=== PATIENT | female | born 1960 | race Caucasian/White ===

== ENCOUNTER 2016-06-26 07:31 | Inpatient (IN) | payer BC ==
[2016-06-26] VITALS (20 sets, daily range): BP systolic 108–164; BP diastolic 53–89
[~2016-06-26] VITALS: Ht 167.6 cm; Wt 54.1 kg
[~2016-06-26 07:31] MED LIST: ACET-654 PO; ALBU17IN INH; ALPR0.25 PO; AMBI10TA PO; AMBI5TAB PO; AMLO5TAB2 PO; BUPR150T5 PO; CALC500C16 PO; CLON0.5T PEG; CLON0.5T PO; CLON1TAB PO; EPOG1000 SUBCON; ESTR1TAB PO; FLUC150T PO; HEPA10004 SC; HEPA100PFS IV; HYDR10TAB PEG; HYDR10TAB PO; HYDR25T PO; IMOD2TAB16 PO; INDE1CAP5 PO; LOPR1TAB7 PO; MARI2.5C PO; MAXA10TA14 PO; METO-207 PEG; METO-207 PO; METR1INJ2 IV; NEPHTAB PO; ONDA1TAB15 PO; PERC5TAB6 PO; PROM-190 PEG; PROM-190 PO; PROM25TA PO; PROM50TA2 PEG; PROP120C PO; PROP12CASA PO; PROT1TAB2 PO; PROTPAK PO; REGL5TAB2 PO; RIZA10TA2 PO; ROCA0.25 PEG; ROCA0.25 PO; SERT-138 PO; SERT-141 PEG; SERT-141 PO; TYLE325T5 PO; VITA-122 PO; XANA0.25 PEG; XANA0.25 PO; ZOFR20TA PEG; ZOFR20TA PO; ZOLO100T PEG; ZOLO50TA PEG; [UNRECOGNIZED DRUG - CODE] IV; [UNRECOGNIZED DRUG - CODE] IV; motrin PO
[2016-06-26] MEDS ORDERED: CALCIUM CHLORIDE 10% 1 GM/10 ML SYR As Ordered ONE ×3 (07:43→08:32)
[2016-06-26] MEDS ORDERED: ONDANSETRON 4MG/2ML VIAL (J2405) As Ordered ONE (07:51)
[2016-06-26] MEDS ORDERED: fentaNYL 100 MCG/2 ML INJECTION (J3010) As Ordered ONE (07:59)
[2016-06-26 08:00] LABS: BASO # 0.1 K/mm3 (0.0-0.2); EOS # 0.3 K/mm3 (0.0-0.50); EOS % 3.2 % (0.0-3.0); LARGE UNSTAINED CELL # 0.1 K/mm3 (0.0-0.4); LARGE UNSTAINED CELL % 1.2 % (0.0-4.0); LYMPH # 1.6 K/mm3 (1.5-4.5); LYMPH % 17.1 % (24.0-44.0); MEAN CORPUSCULAR HEMOGLOBIN 32.9 pg (27.0-33.0); MEAN CORPUSCULAR HGB CONC 30.7 g/dl (32.0-36.5); MEAN CORPUSCULAR VOLUME 106.9 fl (80.0-96.0); MONO # 0.5 K/mm3 (0.0-0.8); MONO % 5.7 % (0.0-5.0); NEUTROPHILS # 6.2 K/mm3 (1.8-7.7); NEUTROPHILS % 71.7 % (36.0-66.0); PLATELET COUNT, AUTOMATED 383 k/mm3 (150-450); WHITE BLOOD COUNT 8.6 K/mm3 (4.0-10.0)
[2016-06-26 08:01] LABS: VENOUS BASE EXCESS -16.4 (-2.0-2.0); VENOUS O2 SATURATION 39.4 % (60.0-80.0); VENOUS PARTIAL PRESSURE CO2 55.8 mmHg (38.0-50.0); VENOUS PARTIAL PRESSURE O2 28.7 mmHg (30.0-50.0); VENOUS STANDARD HCO3 11.3 MEQ/L; VENOUS TOTAL CO2 16.3 MEQ/L (24.0-28.0)
[2016-06-26] MEDS ORDERED: SODIUM BICARBONATE 8.4% INJ 50 ML SYRINGE As Ordered ONE (08:18)
--- NOTE | 2016-06-26 08:20 | REP ---
PORTABLE CHEST X-RAY: Single view. HISTORY: Shortness of breath. COMPARISON STUDY: March 17, 2016. FINDINGS: EKG monitoring equipment is seen. A tunneled catheter is noted in the expected location of the superior vena cava from the left internal jugular vein region. The lungs are somewhat hyperinflated but clear. Heart is not felt to be enlarged. No infiltrate is seen. Pleural angles are sharp. IMPRESSION: Hyperinflation. No infiltrate seen. Central venous line. Signed by Reji Narvaez MD 06/26/2016 10:06 A
[2016-06-26 08:24] LABS: ANION GAP 15 MEQ/L (8-16); BLOOD UREA NITROGEN 61 MG/DL (7-18); CALCIUM LEVEL 10.4 MG/DL (8.5-10.1); CARBON DIOXIDE LEVEL 16 MEQ/L (21-32); CHLORIDE LEVEL 106 MEQ/L (98-107); GLOMERULAR FILTRATION RATE 3.3 (>51); GLUCOSE, FASTING 133 MG/DL (70-105); SODIUM LEVEL 137 MEQ/L (136-145)
[2016-06-26 08:28] LABS: PHOSPHORUS LEVEL 10.3 MG/DL (2.5-4.9); POTASSIUM SERUM 8.6 MEQ/L (3.5-5.1)
[2016-06-26 08:48] LABS: INR 1.07
--- NOTE | 2016-06-26 08:52 | EDDOCDS ---
Nurse's Notes [facility] Name: Jessi Haider Age: 55 yrs Sex: Female : 1960 Arrival Date: 06/26/2016 Time: 07:31 Bed 2 Private MD: Diagnosis: Hyperkalemia Presentation: 06/26 07:32 Presenting complaint: EMS states: dialysis patient missed dialysis on . This [facility] morning not feeling well nausea, diaphoretic hypotensive and bradycardic. heart rate in the 40's 1/2 mg atropine given without any improvement in heart rate , began external pacing rate of 60 capture at 140. dopamine started at 7.5 mcg /kg/min. Adult Sepsis Screening: Patient has new or worsening altered mentation (1 point). Patient's respiratory rate is less than 22. Systolic blood pressure is less than or equal to 100 (1 point). Patient has a qSOFA score of 2. Suicide/Homicide risk assessment- Unable to assess, the patient is critically ill. Status: Patient is not a well service floorperson or dependent. Transition of care: patient was not received from another setting of care. 07:32 Acuity: SELENA Level 2 [facility] 07:32 Acuity: SELENA Level 2 [facility] 07:32 Method Of Arrival: Ambulance [facility] Triage Assessment: 07:50 General: Appears ill, Behavior is appropriate for age. Pain: Location: chest from the [facility] pacing pads Pain currently is 8 out of 10 on a pain scale. HIV screening NA for this visit Offered previously. The patient is triaged at the bedside. See Assessment in Nurses Notes section of ED record. Historical: - Allergies: No known drug Allergies; - Home Meds: 1. vitamin B complex oral tab daily (Last dose: 06/25/2016) 2. acetaminophen 325 mg Oral tab 2 tabs every 4-6 hours as needed (Last dose: Unknown) 3. albuterol sulfate 90 mcg/actuation Inhl aepb 2 puffs every 4 hours as needed (Last dose: Unknown) 4. rizatriptan 10 mg oral tab 1 tab as needed (Last dose: Unknown) 5. metoclopramide HCl 5 mg Oral tab 1 tab 4 times per day as needed (Last dose: Unknown) 6. ondansetron HCl 4 mg Oral tab every 6 hours as needed (Last dose: Unknown) 7. bupropion HCl 150 mg Oral TbER 1 tab 2 times per day (Last dose: 06/25/2016) 8. promethazine 25 mg Oral tab 1 tab every 6 hours as needed (Last dose: Unknown) 9. estradiol 1 mg Oral tab 1 tab once daily (Last dose: 06/25/2016) 10. Sertraline 200 mg daily (Last dose: 06/25/2016) 11. clonazepam 1 mg Oral tab 1 tab four times a day (Last dose: 06/25/2016) 12. propranolol 120 mg Oral Cs24 1 cap nightly (Last dose: 06/25/2016) 13. Protonix 40 mg Oral TbEC 1 tab once daily (Last dose: 06/25/2016) 14. zolpidem 10 mg Oral tab 1 tab nightly (Last dose: 06/25/2016) 15. 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 No barriers to communication noted, The patient speaks fluent Nepali. - Family history: Not pertinent. - : The pt / caregiver states he / she is not on anticoagulants. Home medication list is obtained from the patient. - Exposure Risk Screening:: None identified. Screenin:23 Screening information is obtained from the patient. Fall risk: No risks identified. ml6 Assistance ADL's: requires no assistance with activities of daily living. Abuse/DV Screen: The patient / caregiver reports he/she is: not in a situation that causes fear, pain or injury. Nutritional screening: No deficits noted. Advance Directives: Currently, there is no health care proxy. home support is adequate. Assessment: 07:30 General: Appears ill, Behavior is cooperative, Reports nausea and weakness for 2 days, [facility] missed dialysis on . Pain: Location: chest from being paced Pain currently is 8 out of 10 on a pain scale. Neurological: Level of Consciousness is lethargic. Cardiovascular: Capillary refill is > 3 seconds in bilateral fingers Rhythm is paced at 60 via external pacemaker. Respiratory: Airway is patent Respiratory effort is even, unlabored, Respiratory pattern is regular, symmetrical. GI: Reports nausea. Derm: Skin is dry, Skin is pale, pink, Skin temperature is cool. 07:30 General: Appears ill, uncomfortable, Behavior is anxious, cooperative. Pain: Location: ml6 chest Pain currently is 4 out of 10 on a pain scale. Pain does not radiate. Quality of pain is described as burning. Neurological: No deficits noted. Level of Consciousness is awake, lethargic, Oriented to person, place, time, Business Continuity Planning Director are equal bilaterally. Cardiovascular: Capillary refill < 3 seconds. Cardiovascular: Rhythm is regular. Respiratory: Airway is patent. Respiratory: Airway is patent Respiratory effort is even, unlabored, Respiratory pattern is regular, symmetrical, Breath sounds are clear bilaterally. GI: No deficits noted. 08:22 Reassessment: Patient appears in no apparent distress at this time. Patient denies pain ml6 at this time. Patient states feeling better. Patient states symptoms have improved. General: Appears in no apparent distress, comfortable, Behavior is appropriate for age, cooperative. Pain: Denies pain. Neurological: No deficits noted. Level of Consciousness is awake, alert, Oriented to person, place, time. Cardiovascular: No deficits noted. Capillary refill < 3 seconds is brisk in bilateral fingers. Respiratory: No deficits noted. Airway is patent Respiratory effort is even, unlabored, Respiratory pattern is regular, symmetrical, Breath sounds are clear bilaterally. GI: No deficits noted. Abdomen is flat. Vital Signs: 07:54 BP 90 / ??? RA Supine (man/reg); Pulse 60; Resp 22; Temp 96.4(O); Pulse Ox 100% on kpj Non-rebreather mask; Weight 61.37 kg (M); Height 5 ft. 6 in. (167.64 cm) (R); Pain 8/10; 07:55 BP 122 / 78 Supine (man/reg); Pulse 74; Resp 20; Pulse Ox 100% on Mask: Non-rebreather kpj mask; 08:00 BP 124 / 80 Supine (man/reg); Pulse 71; Resp 20; Pulse Ox 100% on Mask: Non-rebreather kpj mask; 07:54 Body Mass Index 21.84 (61.37 kg, 167.64 cm) [facility] 07:54 paced at 60 external pacemaker. [facility] Vitals: 07:54 Log In Time N/A - ambulance arrival. [facility] ED Course: 07:30 Resting quietly. kpj 07:30 The patient / caregiver is instructed regarding the plan of care and ED course. Patient [facility] has correct armband on for positive identification. yoghurt maker on. Pulse ox on. NIBP on. 07:30 Pacing: Patient was paced with an external pacer Using demand mode, Rate set at 60 in kpj beats/min. Current set at 140 milliamps. Capture was noted. 07:30 Maintain field IV. Dressing intact. Good blood return noted. Site clean & dry. Gauge & kpj site: 20 gauge left hand. O2 via non-rebreather \T\ 15L/min. 07:32 Patient visited by Sosa Lombardi PCA. ar3 07:32 Leann Abel,RN is Primary Nurse. kpj 07:32 Patient moved to Waiting ar3 07:32 Patient moved to 2 kp 07:36 Triage Initiated kpj 07:44 Primary Nurse role handed off by Leann Abel,RN ar3 07:44 Jenny Paul MD is Attending Physician. sd1 07:44 Patient visited by Jenny Paul MD. sd1 07:49 Venous Blood Gas (large pea green tube on ice) Sent. nb2 07:49 B-Type Natiuretic Peptide Sent. nb2 07:49 Basic Metabolic Profile Sent. nb2 07:49 CBC with Diff Sent. nb2 07:49 Cardiac Injury Profile Sent. nb2 07:49 Prothrombin Time Profile\E\INR Sent. nb2 07:49 Troponin Sent. nb2 07:50 Inserted saline lock: 18 gauge in right forearm by Bob Hardin RN. kpj 07:50 EKG done. (by ED staff). Reviewed by Jenny Paul MD. dem1 07:55 Pacing: discontinued pacing [id number] current heart rate of 79 bpm.. kpj 08:04 PHOSPHOROUS LEVEL Sent. ar3 08:04 MAGNESIUM LEVEL Sent. ar3 08:17 Patient visited by Dejon Larry RN. ml6 08:18 EKG done. (by ED staff). Reviewed by Jenny Paul MD. dem1 08:19 Patient visited by Dru Ramon. dem1 08:19 MadayaundreaTamanna is Hospitalizing Provider. sd1 08:25 No procedures done that require assistance. ml6 08:49 portable chest Returned. EDMS Administered Medications: 07:30 Drug: DOPamine 460.275 mcg/min [dopamine 400 mg/500 mL (800 mcg/mL) in 5 % dextrose [facility] intravenous soln] {Note: started by EMS continued per Dr Upton..} Route: IV; Rate: calculated rate; Site: left hand; 07:55 Follow up: BP 122 / 78 Supine Right Arm Manual Regular; Pulse 74 bpm; Resp 20 bpm; kpj Pulse Ox 100% Mask: Non-rebreather mask; Rate change 5 mcg/kg/min 08:00 Follow up: Dopamine drip stopped per Dr Upton kp 08:00 Follow up: BP 124 / 80 Supine Right Arm Manual Regular; Pulse 71 bpm; Resp 20 bpm; kpj Pulse Ox 100% Mask: Non-rebreather mask 08:00 Follow up: IV Status: Completed infusion ml6 07:50 Drug: Calcium Chloride 1 grams [calcium chloride 100 mg/mL (10 %) intravenous syringe [facility] (10 mL)] {Co-Signature: [email or web address] (Jesika Hardin RN).} {Note: given by Placido.} Route: IVP; Site: right forearm; 07:58 Drug: fentaNYL (PF) 25 mcg [fentanyl (PF) 50 mcg/mL injection solution (0.5 mL)] Route: ml6 IVP; Site: right forearm; 08:00 Drug: Ondansetron 8 mg [ondansetron HCl 2 mg/mL intravenous solution (3.75 mL)] Route: ml6 IVP; Site: right forearm; 08:17 Drug: Sodium Bicarbonate 1 amp Route: IVP; Site: right forearm; ml6 Intake: Order Results: Lab Order: B-Type Natiuretic Peptide; SPEC'M 06/26/16 07:46 Test: BRAIN NATRIURETIC PEPTIDE; Value: 950; Range: <100; Abnormal: Above high normal; Units: PG/ML; Status: F Lab Order: Basic Metabolic Profile; SPEC'M 06/26/16 07:46 Test: GLUCOSE, FASTING; Value: 133; Range: 70-105; Abnormal: Above high normal; Units: MG/DL; Status: F Test: BLOOD UREA NITROGEN; Value: 61; Range: 7-18; Abnormal: Above high normal; Units: MG/DL; Status: F Test: CREATININE FOR GFR; Value: 12.40; Range: 0.55-1.02; Abnormal: Above high normal; Units: MG/DL; Status: F Test: GLOMERULAR FILTRATION RATE; Value: 3.3; Range: >51; Abnormal: Below low normal; Status: F Test: SODIUM LEVEL; Value: 137; Range: 136-145; Units: MEQ/L; Status: F Test: POTASSIUM SERUM; Value: 8.6; Range: 3.5-5.1; Abnormal: Above upper panic limits; Units: MEQ/L; Status: F Test: CHLORIDE LEVEL; Value: 106; Range: 98-107; Units: MEQ/L; Status: F Test: CARBON DIOXIDE LEVEL; Value: 16; Range: 21-32; Abnormal: Below low normal; Units: MEQ/L; Status: F Test: ANION GAP; Value: 15; Range: 8-16; Units: MEQ/L; Status: F Test: CALCIUM LEVEL; Value: 10.4; Range: 8.5-10.1; Abnormal: Above high normal; Units: MG/DL; Status: F Test Note: ; Units are mL/min/1.73 m2 Chronic Kidney Disease Staging per NKF: Stage I & II GFR >=60 Normal to Mildly Decreased Stage III GFR 30-59 Moderately Decreased Stage IV GFR 15-29 Severely Decreased Stage V GFR <15 Very Little GFR Left ESRD GFR <15 on RESPITE PROVIDER Lab Order: CBC with Diff; SPEC'M 06/26/16 07:46 Test: WHITE BLOOD COUNT; Value: 8.6; Range: 4.0-10.0; Units: K/mm3; Status: F Test: RED BLOOD COUNT; Value: 4.04; Range: 4.00-5.40; Units: M/mm3; Status: F Test: HEMOGLOBIN; Value: 13.3; Range: 12.0-16.0; Units: g/dl; Status: F Test: HEMATOCRIT; Value: 43.2; Range: 36.0-47.0; Units: %; Status: F Test: MEAN CORPUSCULAR VOLUME; Value: 106.9; Range: 80.0-96.0; Abnormal: Above high normal; Units: fl; Status: F Test: MEAN CORPUSCULAR HEMOGLOBIN; Value: 32.9; Range: 27.0-33.0; Units: pg; Status: F Test: MEAN CORPUSCULAR HGB CONC; Value: 30.7; Range: 32.0-36.5; Abnormal: Below low normal; Units: g/dl; Status: F Test: RED CELL DISTRIBUTION WIDTH; Value: 13.0; Range: 11.5-14.5; Units: %; Status: F Test: PLATELET COUNT, AUTOMATED; Value: 383; Range: 150-450; Units: k/mm3; Status: F Test: NEUTROPHILS %; Value: 71.7; Range: 36.0-66.0; Abnormal: Above high normal; Units: %; Status: F Test: LYMPH %; Value: 17.1; Range: 24.0-44.0; Abnormal: Below low normal; Units: %; Status: F Test: MONO %; Value: 5.7; Range: 0.0-5.0; Abnormal: Above high normal; Units: %; Status: F Test: EOS %; Value: 3.2; Range: 0.0-3.0; Abnormal: Above high normal; Units: %; Status: F Test: BASO %; Value: 1.0; Range: 0.0-1.0; Units: %; Status: F Test: LARGE UNSTAINED CELL %; Value: 1.2; Range: 0.0-4.0; Units: %; Status: F Test: NEUTROPHILS #; Value: 6.2; Range: 1.8-7.7; Units: K/mm3; Status: F Test: LYMPH #; Value: 1.6; Range: 1.5-4.5; Units: K/mm3; Status: F Test: MONO #; Value: 0.5; Range: 0.0-0.8; Units: K/mm3; Status: F Test: EOS #; Value: 0.3; Range: 0.0-0.50; Units: K/mm3; Status: F Test: BASO #; Value: 0.1; Range: 0.0-0.2; Units: K/mm3; Status: F Test: LARGE UNSTAINED CELL #; Value: 0.1; Range: 0.0-0.4; Units: K/mm3; Status: F Lab Order: Cardiac Injury Profile; [facility] 06/26/16 07:46 Test: CPK CREATINE PHOSPHOKINASE; Value: 74; Range: 26-192; Units: U/L; Status: F Test: CK-MB VALUE MASS; Value: 1.9; Range: 0.0-3.6; Units: NG/ML; Status: F Test: MB/CK RELATIVE INDEX; Value: 2.56; Range: < OR =4; Status: F Test Note: ; DIAGNOSIS CRITERIA MMB ng/ml Relative Index (RI) NON-AMI < or = 5 N/A DELCID ZONE > 5 < or = 4 AMI > 5 > 4 Lab Order: Prothrombin Time Profile\E\INR; [facility] 06/26/16 08:29 Test: PROTHROMBIN TIME; Value: 14.0; Range: 12.3-14.5; Units: SECONDS; Status: F Test: INR; Value: 1.07; Status: F Test Note: ; THERAPUTIC HUMAN INR VALUES INDICATIONS NORMAL RANGES PROPHYLAXIS/TREATMENT OF: VENOUS THROMBOSIS 2.0-3.0 PULMONARY EMBOLISM 2.0-3.0 PREVENTION OF SYSTEMIC EMBOLISM FROM: TISSUE HEART VALVES 2.0-3.0 ACUTE MYOCARDIAL INFARCTION 2.0-3.0 VALVULAR HEART DISEASE 2.0-3.0 ATRIAL FIBRILLATION 2.0-3.0 MECHANICAL VALVES(HIGH RISK) 2.5-3.5 RECURRENT MYOCARDIAL INFARCTION 2.5-3.5 Lab Order: Troponin; [facility] 06/26/16 07:46 Test: TROPONIN I; Value: < 0.02; Range: < 0.10; Units: NG/ML; Status: F Test Note: ; Troponin I Reference Interval for [place] LOCI: 99th Percentile= 0.00-0.045 ng/ml Risk Stratification: <= 0.10 ng/ml Decreased Risk for Adverse Clinical Events. 0.10-1.50 ng/ml Increased Risk for Adverse Clinical Events. Evaluation of additional criterion and/or repeat testing in 2-6 hours is suggested to rule out myocardial damage. >= 1.50 ng/ml Indicative of Myocardial Injury. Lab Order: Venous Blood Gas (large pea green tube on ice); [facility]06/26/16 07:46 Test: VENOUS PH; Value: 7.034; Range: 7.330-7.430; Abnormal: Below low normal; Units: UNITS; Status: F Test: VENOUS PARTIAL PRESSURE CO2; Value: 55.8; Range: 38.0-50.0; Abnormal: Above high normal; Units: mmHg; Status: F Test: VENOUS PARTIAL PRESSURE O2; Value: 28.7; Range: 30.0-50.0; Abnormal: Below low normal; Units: mmHg; Status: F Test: VENOUS TOTAL CO2; Value: 16.3; Range: 24.0-28.0; Abnormal: Below low normal; Units: MEQ/L; Status: F Test: VENOUS HCO3; Value: 14.5; Range: 23.0-27.0; Abnormal: Below low normal; Units: MEQ/L; Status: F Test: VENOUS BASE EXCESS; Value: -16.4; Range: -2.0-2.0; Abnormal: Below low normal; Status: F Test: VENOUS STANDARD HCO3; Value: 11.3; Units: MEQ/L; Status: F Test: VENOUS O2 SATURATION; Value: 39.4; Range: 60.0-80.0; Abnormal: Below low normal; Units: %; Status: F Lab Order: Fingerstick Blood Sugar; [facility]06/26/16 07:50 Test: BEDSIDE GLUCOSE; Value: 118; Range: 70-105; Abnormal: Above high normal; Units: MG/DL; Status: F Lab Order: MAGNESIUM LEVEL; [facility]06/26/16 07:46 Test: MAGNESIUM LEVEL; Value: 2.0; Range: 1.8-2.4; Units: MG/DL; Status: F Lab Order: PHOSPHOROUS LEVEL; [facility]06/26/16 07:46 Test: PHOSPHORUS LEVEL; Value: 10.3; Range: 2.5-4.9; Abnormal: Above high normal; Units: MG/DL; Status: F Radiology Order: portable chest Test: portable chest REASON FOR EXAMINATION: Shortness of Breath; PORTABLE CHEST X-RAY: Single view.; ; HISTORY: Shortness of breath.; ; COMPARISON STUDY: March 17, 2016.; ; FINDINGS: EKG monitoring equipment is seen. A tunneled catheter is noted in the; expected location of the superior vena cava from the left internal jugular vein; region. The lungs are somewhat hyperinflated but clear. Heart is not felt to be; enlarged. No infiltrate is seen. Pleural angles are sharp.; ; IMPRESSION:; Hyperinflation. No infiltrate seen. Central venous line.; ; ; ; ; Unreviewed; Outcome: 08:19 Decision to Hospitalize by Provider. sd1 08:23 Discharge Assessment: patient administered narcotics - yes. Patient was admitted to the [address] or transferred to another facility. The following High Risk Discharge criteria are identified: None. Admitted to ICU accompanied by nurse, accompanied by tech, via stretcher, with oxygen, on monitor, with chart. Condition: stable. No special radiology studies were completed. Admission hand-off: Other: bedside report to be given . Property :Personal belongings accompany Pt. 08:51 Patient left the ED. [facility] Signatures: Dispatcher [employer] EDMS Jenny Paul MD MD sd1 Sanjuanita Wilcox, RN RN Star Syed, RN RN Dejon Wood, RN RN 6 Maria C, Sosa, WELD FITTER WELD FITTER ar3 Dru Ramon1 Kimi Felipe nb2 Jesika Hardin RN [email or web address] Corrections: (The following items were deleted from the chart) 08:02 07:49 PHOSPHOROUS LEVEL+LAB sent. [facility] EDMS 08:02 07:49 MAGNESIUM LEVEL+LAB sent. [facility] EDMS 08:09 07:55 Rate change 5 mcg/kg/min [facility] 08:12 08:08 BP 122 / 78 Supine Right Arm Manual Regular; Pulse 74 bpm; Resp 20 bpm; Pulse Ox kpj 100% Mask: Non-rebreather mask; Rate change 5 mcg/kg/min kpj 08:12 08:09 BP 124 / 80 Supine Right Arm Manual Regular; Pulse 71 bpm; Resp 20 bpm; Pulse Ox kpj 100% Mask: Non-rebreather mask [facility] MTDD
--- NOTE | 2016-06-26 08:52 | EDDOCDS ---
Physician Documentation [facility] Name: Jessi Haider Age: 55 yrs Sex: Female : 1960 Arrival Date: 06/26/2016 Time: 07:31 Bed 2 Private MD: Disposition: 06/26/16 08:19 Hospitalization ordered by Tamanna Landers for Inpatient Admission. Preliminary diagnosis is Hyperkalemia. - Bed requested for M ICU. - Status is Inpatient Admission. bcj - Condition is Stable. - Problem is new. - Symptoms have improved. Historical: - Allergies: No known drug Allergies; - Home Meds: 1. vitamin B complex oral tab daily (Last dose: 06/25/2016) 2. acetaminophen 325 mg Oral tab 2 tabs every 4-6 hours as needed (Last dose: Unknown) 3. albuterol sulfate 90 mcg/actuation Inhl aepb 2 puffs every 4 hours as needed (Last dose: Unknown) 4. rizatriptan 10 mg oral tab 1 tab as needed (Last dose: Unknown) 5. metoclopramide HCl 5 mg Oral tab 1 tab 4 times per day as needed (Last dose: Unknown) 6. ondansetron HCl 4 mg Oral tab every 6 hours as needed (Last dose: Unknown) 7. bupropion HCl 150 mg Oral TbER 1 tab 2 times per day (Last dose: 06/25/2016) 8. promethazine 25 mg Oral tab 1 tab every 6 hours as needed (Last dose: Unknown) 9. estradiol 1 mg Oral tab 1 tab once daily (Last dose: 06/25/2016) 10. Sertraline 200 mg daily (Last dose: 06/25/2016) 11. clonazepam 1 mg Oral tab 1 tab four times a day (Last dose: 06/25/2016) 12. propranolol 120 mg Oral Cs24 1 cap nightly (Last dose: 06/25/2016) 13. Protonix 40 mg Oral TbEC 1 tab once daily (Last dose: 06/25/2016) 14. zolpidem 10 mg Oral tab 1 tab nightly (Last dose: 06/25/2016) 15. 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 No barriers to communication noted, The patient speaks fluent Chinese. - Family history: Not pertinent. - : The pt / caregiver states he / she is not on anticoagulants. Home medication list is obtained from the patient. - Exposure Risk Screening:: None identified. Vital Signs: 06/26 07:54 BP 90 / ??? RA Supine (man/reg); Pulse 60; Resp 22; Temp 96.4(O); Pulse Ox 100% on kpj Non-rebreather mask; Weight 61.37 kg / 135.3 lbs (M); Height 5 ft. 6 in. (167.64 cm) (R); Pain 8/10; 07:55 BP 122 / 78 Supine (man/reg); Pulse 74; Resp 20; Pulse Ox 100% on Mask: Non-rebreather kpj mask; 08:00 BP 124 / 80 Supine (man/reg); Pulse 71; Resp 20; Pulse Ox 100% on Mask: Non-rebreather kpj mask; 07:54 Body Mass Index 21.84 (61.37 kg, 167.64 cm) kpj 07:54 paced at 60 external pacemaker. [facility] MDM: 07:45 Donation Specialist/Pulse Ox/q 30 min VS ordered. sd1 07:45 IV Saline Lock ordered. sd1 07:45 Rhythm Strip to chart ordered. sd1 07:45 Undress patient appropriately for examination ordered. sd1 07:45 Calcium Chloride 1 grams IVP once ordered. sd1 07:46 B-Type Natiuretic Peptide Ordered. EDMS 07:46 Basic Metabolic Profile Ordered. EDMS 07:46 CBC with Diff Ordered. EDMS 07:46 Cardiac Injury Profile Ordered. EDMS 07:46 Prothrombin Time Profile\E\INR Ordered. EDMS 07:46 Troponin Ordered. EDMS 07:46 Accucheck ordered. sd1 07:47 portable chest Ordered. EDMS 07:47 ECG WITH READING ER PHYS+CARDIAG ordered. EDMS 07:49 Venous Blood Gas (large pea green tube on ice) Ordered. EDMS 07:54 Ondansetron 8 mg IVP once ordered. jo4 07:57 fentaNYL (PF) 25 mcg IVP once ordered. sd1 08:02 MAGNESIUM LEVEL Ordered. EDMS 08:02 PHOSPHOROUS LEVEL Ordered. EDMS 08:06 DOPamine 7.5 mcg/kg/min IV at calculated rate continuous; Titrate 2mcg/kg/min to keep sd1 SBP>90mmHg Max rate 20mcg/kg/min ordered. 08:06 CBC with Diff Reviewed. sd1 08:06 Venous Blood Gas (large pea green tube on ice) Reviewed. sd1 08:06 Fingerstick Blood Sugar Reviewed. sd1 08:10 Sodium Bicarbonate 1 amp IVP once ordered. sd1 08:15 ECG WITH READING ER PHYS+CARDIAG ordered. EDMS 08:27 Admission / Observation Status ordered. EDMS 08:27 NPO DIET ordered. EDMS 08:41 B-Type Natiuretic Peptide Reviewed. sd1 08:41 Basic Metabolic Profile Reviewed. sd1 08:41 PHOSPHOROUS LEVEL Reviewed. sd1 08:41 Cardiac Injury Profile Reviewed. sd1 08:41 Troponin Reviewed. sd1 08:41 MAGNESIUM LEVEL Reviewed. sd1 Administered Medications: 07:30 Drug: DOPamine 460.275 mcg/min [dopamine 400 mg/500 mL (800 mcg/mL) in 5 % dextrose [facility] intravenous soln] {Note: started by EMS continued per Dr Upton..} Route: IV; Rate: calculated rate; Site: left hand; 07:55 Follow up: BP 122 / 78 Supine Right Arm Manual Regular; Pulse 74 bpm; Resp 20 bpm; [facility] Pulse Ox 100% Mask: Non-rebreather mask; Rate change 5 mcg/kg/min 08:00 Follow up: Dopamine drip stopped per Dr Upton [facility] 08:00 Follow up: BP 124 / 80 Supine Right Arm Manual Regular; Pulse 71 bpm; Resp 20 bpm; [facility] Pulse Ox 100% Mask: Non-rebreather mask 08:00 Follow up: IV Status: Completed infusion ml6 07:50 Drug: Calcium Chloride 1 grams [calcium chloride 100 mg/mL (10 %) intravenous syringe [facility] (10 mL)] {Co-Signature: [email or web address] (Jesika Hardin RN).} {Note: given by Placido.} Route: IVP; Site: right forearm; 07:58 Drug: fentaNYL (PF) 25 mcg [fentanyl (PF) 50 mcg/mL injection solution (0.5 mL)] Route: ml6 IVP; Site: right forearm; 08:00 Drug: Ondansetron 8 mg [ondansetron HCl 2 mg/mL intravenous solution (3.75 mL)] Route: ml6 IVP; Site: right forearm; 08:17 Drug: Sodium Bicarbonate 1 amp Route: IVP; Site: right forearm; ml6 Signatures: Dispatcher [employer] EDMS Jenny Paul MD MD sd1 Sanjuanita Wilcox, RN RN Star Lopez RN RN Dejon Wood RN RN ml6 Sosa Lombardi, CATEGORY MANAGER CATEGORY MANAGER ar3 Ivette Freire DO DO jo4 Jesika Hardin RN [email or web address] The chart was reviewed and I authenticate all verbal orders and agree with the evaluation and treatment provided.Corrections: (The following items were deleted from the chart) 08:02 07:47 MAGNESIUM LEVEL+LAB ordered. EDMS EDMS 08:02 07:47 PHOSPHOROUS LEVEL+LAB ordered. EDMS EDMS MTDD
[2016-06-26] MEDS: SERTRALINE 100 MG TAB PO SCH (09:00)
[2016-06-26] MEDS: ESTRADIOL 1 MG TAB PO SCH (09:00)
--- NOTE | 2016-06-26 09:06 | ECGEPIP ---
Stationary ECG Study [facility] - ED Test Date: 2016-06-26 Pat Name: GREY ORELLANA Department: Room: - Gender: F Event Decorator: miri : 1960 Requested By: Jenny Paul Order Number: [id number] Reading MD: Jenny Paul Measurements Intervals [place] Rate: 86 P: 66 NE: 221 QRS: -62 QRSD: 199 T: 89 QT: 430 QTc: 516 Interpretive Statements SINUS RHYTHM WITH FIRST DEGREE AV BLOCK POSSIBLE LEFT ATRIAL ENLARGEMENT MARKED LEFT AXIS DEVIATION LEFT BUNDLE BRANCH BLOCK CLINICAL CORRELATION FOR HYPERKALEMIA Electronically Signed On 06-26-2016 9:06:01 EST by Jenny Paul
--- NOTE | 2016-06-26 09:07 | ECGEPIP ---
Stationary ECG Study [facility] - ED Test Date: 2016-06-26 Pat Name: GREY ORELLANA Department: Room: - Gender: F Technical Solutions Engineer: miri : 1960 Requested By: Jenny Paul Order Number: [id number] Reading MD: Jenny Paul Measurements Intervals [place] Rate: 62 P: 73 NC: 164 QRS: -43 QRSD: 178 T: 88 QT: 411 QTc: 417 Interpretive Statements SINUS RHYTHM POSSIBLE LEFT ATRIAL ENLARGEMENT MARKED LEFT AXIS DEVIATION LEFT BUNDLE BRANCH BLOCK DECREASED RATE PEAKED T WAVES DECREASE DRATE 06/26/16 7:53 Electronically Signed On 06-26-2016 9:06:35 EST by Jenny Paul
[2016-06-26] MEDS ORDERED: IMOD2TAB16 PO (09:17)
[2016-06-26] MEDS ORDERED: LOMO2.5T PO (09:17)
[2016-06-26] MEDS ORDERED: AMLO5TAB2 PO (09:17)
[2016-06-26] MEDS ORDERED: VITA200038 PO (09:17)
[2016-06-26] MEDS ORDERED: KION15SU PO (09:17)
[2016-06-26] MEDS ORDERED: DEXTROSE 50% 50 ML SYRINGE As Ordered ONE (09:20)
[2016-06-26] MEDS ORDERED: DEXTROSE 50% 50 ML SYRINGE IV STA (09:20)
[2016-06-26] MEDS ORDERED: HEPARIN 1,000 UNITS/ML 10ML VIAL (FOR RADIOLOGY& DIALYSIS ONLY) IV ONE (13:30)
[2016-06-26] MEDS: ACETAMINOPHEN TAB 650MG DOSE (2X325MG) PO PRN (13:30)
--- NOTE | 2016-06-26 13:41 | CR.PDOC ---
[facility] Consultation Consultation DATE OF ADMISSION: 06/26/2016 DATE OF CONSULTATION: 06/26/2016 ATTENDING PHYSICIAN: Dr. Tamanna Landers CONSULTING PHYSICIAN: Dr. Jacklyn Rodríguez REASON FOR CONSULTATION: Hyperkalemia, end-stage renal disease. HISTORY OF PRESENT ILLNESS: Ms. Haider is a 55-year-old female with past medical history significant for end-stage renal disease on hemodialysis Tuesday, , Tuesday, hyperlipidemia, hypertension, depression, mitral valve prolapse, and migraines who presents to the emergency department after having complaints of feeling weak. She also reported that she had nausea, vomiting and chills and because of this she missed her hemodialysis session on . She was scheduled for reversal of ileostomy on as well, but that has been postponed till July. She has history of having high potassium level, and was admitted in February for this very same reason. When EMS arrived, she was found to be diaphoretic, hypotensive and bradycardic. Her heart rate was in the 40s. She was given atropine without any improvement in heart rate and external pacing was initiated. She was also given dopamine. Given her history of noncompliance with high potassium level, a dose of calcium chloride was given prior to her labs being obtained in the emergency department. On laboratory assessment, her potassium was noted to be 8.6 with EKG noting peaked T waves. She was immediately taken to the ICU and urgent hemodialysis was initiated. Patient was seen in the ICU during hemodialysis, she reports that she is feeling better. Blood sugar was 66 and she was given an amp of D50. Her heart rate improved to the 70s. Peaked T waves on telemetry improved as dialysis continued. PAST MEDICAL HISTORY: 1. End-stage renal disease on hemodialysis Tuesday, and Tuesday 2. Hypertension 3. Hyperlipidemia 4. Mitral valve prolapse 5. Depression and anxiety 6. History of migraines 7. History of hyperkalemia 8. 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 Gastroesophageal reflux disease 10. History of chronic anemia 11. History of pancreatitis PAST SURGICAL HISTORY: 1. Dialysis access 2. Colectomy and ileostomy 3. Gastric jejunostomy tube 4. Hysterectomy 5. Appendectomy 6. Tonsillectomy and adenoidectomy 7. Dilation and curettage HOME MEDICATIONS: Please see below. ALLERGIES: No known drug allergies FAMILY HISTORY: No history of end-stage renal disease requiring hemodialysis. SOCIAL HISTORY: No tobacco, alcohol or illicit drug use. She is and lives at home with and 2 daughters. REVIEW OF SYSTEMS: CONSTITUTIONAL: Positive for generalized weakness and chills. No fevers. HEENT: No headache. No acute changes to vision or hearing. CARDIOVASCULAR: No chest pain, chest pressure, palpitations or shortness of breath with exertion RESPIRATORY: Shortness of breath or cough. No hemoptysis. GENITOURINARY: He is anuric and a dialysis patient. No changes to urinary habits MUSCULOSKELETAL: No unusual muscle or joint pains. GASTROINTESTINAL: Positive for nausea and vomiting. No abdominal pain. No diarrhea. No hematochezia or melena. SKIN: No unusual rashes or skin lesions. NEUROLOGICAL: No syncope. No paresthesias. PSYCHIATRIC: History of anxiety and depression. ENDOCRINE: No history of diabetes or thyroid disorder. HEMATOLOGIC: No excessive bleeding or bruising. PHYSICAL EXAMINATION: Vital Signs Date Time Temp Pulse Resp B/P Pulse Ox O2 Delivery O2 Flow Rate FiO2 06/26/16 12:15 71 20 108/53 100 Nasal Cannula 2.0 06/26/16 08:41 96.7 GENERAL: Alert and oriented. In no acute distress. HEENT: Normocephalic, atraumatic. Extraocular muscles are intact. Moist mucosa. NECK: Supple. No jugular venous distention appreciated. HEART: Normal S1, S2. Regular rate and rhythm. Positive for systolic ejection murmur. LUNGS: Bilateral crackles. Good air movement bilaterally. ABDOMEN: Soft, nontender, nondistended. Bowel sounds are present. She has ileostomy. EXTREMITIES: No significant lower extremity edema. Positive pedal pulses bilaterally. SKIN: Warm and dry. No rashes noted. NEUROLOGIC: No focal deficits. Cranial nerves II through XII are grossly intact. Moving all extremities. LABORATORY DATA: 06/26/16 07:46 Venous blood gas showed a pH of 7.03, PCO2 55.8, PO2 28.7, HCO3 14.5, oxygen saturation 39.4 IMAGING: Chest x-ray done on 06/26 revealed hyperinflation, no infiltrate seen. ASSESSMENT/PLAN: Ms. Haider is a 55-year-old female with past medical history significant for end-stage renal disease on hemodialysis Tuesday , , Tuesday, hyperlipidemia, hypertension, depression, mitral valve prolapse, GERD, anemia, and migraines presented to the hospital minimally responsive, hypotensive and bradycardic found to have hyperkalemia after missing her hemodialysis session on Tuesday. 1. Hyperkalemia. Patient had a potassium of 8.6 on arrival and was urgently dialyzed with low potassium bath. Potassium level should improve after dialysis. We will repeat a renal profile at 1400. 2. Metabolic acidosis, secondary to renal failure. She received an amp of bicarbonate. This should also improve with hemodialysis. 3. End-stage renal disease on hemodialysis Tuesday, and Tuesday. Patient missed her dialysis session and has history of noncompliance leading to hyperkalemia and acidosis. She is being dialyzed in the ICU at this time. 4. Hypoglycemia. Patient received an amp of D50 in the ICU and blood sugars improved. 5. Bradycardia. Prior to arrival she received atropine and dopamine. Her heart rate is currently stable in the 70s. Beta magno held at this time. 6. Hypercalcemia. This is likely due to the 2 doses of calcium chloride that she received to stabilize her heart, given her high potassium level. 7. History of hypertension. She presented with hypotension and her Norvasc has been held at this time. Blood pressure is currently stable. 8. Anemia in chronic renal disease. Hemoglobin is stable at 13.3. No intervention needed at this time. 9. History of ischemic bowel status post resection and ileostomy. She had an appointment to have this reversed on , however this had to be postponed till July. 10. History of depression and anxiety. Continue home medication. Thank you for the consultation and allowing us to participate in the care of Ms. Haider. We will continue to follow along with you. Allergies Coded Allergies: No Known Allergies (Unverified , 09/11/15) Home Medications Scheduled (Protonix) 40 Mg Nikolas 40 MG PO DAILY (Reported) Amlodipine Besylate (Amlodipine Besylate) 5 Mg Tab 5 MG PO DAILY (Reported) Bupropion Hcl (Bupropion HCl Sr) 150 Mg Tab 150 MG PO BID (Reported) Cholecalciferol (Vitamin D-3) 2,000 Unit Tab 2,000 UNIT PO DAILY (Reported) Clonazepam (Clonazepam) 1 Mg Tab 1 MG PO QID (Reported) Estradiol (Estradiol) 1 Mg Tab 1 MG PO DAILY (Reported) Metoclopramide Hcl (Reglan) 5 Mg Tab 5 MG PO BID (Reported) Propranolol HCl (Inderal LA) 120 Mg Capcr 120 MG PO DAILY (Reported) Sertraline HCl (Sertraline HCl) 100 Mg Tab 200 MG PO DAILY (Reported) Scheduled PRN Acetaminophen (Acetaminophen) 325 Mg Tab 650 MG PO Q6H PRN PRN PAIN (Reported) Albuterol Sulfate (Ventolin Hfa) 200 Puff/8 Gm Aers 2 PUFF INH QID PRN PRN SHORTNESS OF BREATH (Reported) Diphenoxylate/Atropine (Lomotil 2.5-0.025 mg) 1 Tab Tab 1 TAB PO QID PRN PRN DIARRHEA (Reported) Loperamide Hcl (Imodium A-D) 2 Mg Tab 2 MG PO Q4H PRN PRN KAYLAN (Reported) Ondansetron HCl (Ondansetron HCl) 4 Mg Tab 4 MG PO Q6H PRN PRN NAUSEA (Reported ) Promethazine HCl (Promethazine HCl) 25 Mg Tab 25 MG PO Q6H PRN PRN NAUSEA ( Reported) Rizatriptan Benzoate (Rizatriptan Benzoate) 10 Mg Tab 10 MG PO PRN MIGRAINE ( Reported) Sodium Polystyrene Sulfonate (Kionex) 15 Gm/60 Ml Inessa 15 GM PO ASDIRECTED PRN PRN HIGH POTASSIUM (Reported) Zolpidem Tartrate (Ambien) 10 Mg Tab 10 MG PO QHS PRN PRN SLEEP (Reported) GME ATTESTATION GME ATTESTATION My preceptor for this patient encounter was physically present in the building during the encounter and was fully available. As needed, all aspects of the patient interview, examination, medical decision making process, and medical care plan development were reviewed and approved by the preceptor. Preceptor is aware and concurs with the plan as stated in the body of this note and will attest to such by his/her cosignature. LASHAY MARTINEZ DO Jun 26, 2016 13:41
[2016-06-26] MEDS: HEPARIN SOD (PORCINE) 5000 UNITS/ML VIAL SC SCH ×2 (14:00→21:51)
[2016-06-26 14:22] LABS: ALBUMIN 3.4 GM/DL (3.2-5.2); CALCIUM LEVEL 9.4 MG/DL (8.5-10.1); CREATININE FOR GFR 4.59 MG/DL (0.55-1.02); GLOMERULAR FILTRATION RATE 10.5 (>51); PHOSPHORUS LEVEL 3.2 MG/DL (2.5-4.9)
[2016-06-26] MEDS ORDERED: ONDANSETRON 4 MG TAB (S0181) PO PRN (15:00)
[2016-06-26] MEDS ORDERED: SOD POLYSTYRENE SULFONATE SUSP 15 GM/60 ML UD PO PRN (15:00)
[2016-06-26] MEDS ORDERED: ALBUTEROL 90 MCG/ACT 8GM HFA INHALER INH PRN (15:00)
[2016-06-26] MEDS: RIZATRIPTAN BENZOATE 10 MG TAB PO PRN (15:41)
[2016-06-26] MEDS: clonazePAM 1 MG TAB PO SCH ×2 (17:00→21:50)
[2016-06-26] MEDS: PROPRANOLOL 60 MG LA CAP PO SCH (17:51)
--- NOTE | 2016-06-26 19:10 | HPE ---
DATE OF ADMISSION: 06/26/2016 PRIMARY CARE PROVIDER: [facility] HISTORY OF PRESENT ILLNESS: This patient is a 55-year-old female who has a past medical history significant for end stage renal disease on dialysis, hypertension, anxiety, bowel ischemia and status post colectomy, mitral valve prolapse, who presented to [facility] by emergency medical services (EMS) for hypotension and bradycardia. The patient usually goes for hemodialysis on Tuesday, and Tuesday. The patient missed dialysis because she was not feeling well with symptoms of nausea and headache. This morning when the patient woke up, the patient stated that she could not move her extremities and she started to panic. She also felt very nervous, shaky and she started having chest pressure. The patient immediately called her . When the patient's arrived, he noticed that the patient had very cold skin and was pale. The patient had slurring speech. He called the ambulance immediately. After the ambulance arrival, the patient was found to have a heart rate of 40 and unable to capture the blood pressure. The patient was given 0.5 mg of atropine without any improvement of the heart rate. When the patient arrived in the emergency room, the patient was found to have systolic blood pressure below 90, unable to measure diastolic blood pressure. Dopamine intravenously was given. Finally, the patient's blood pressure and heart rate started to improve. The patient presented with a similar history in the past and it was also due to missing dialysis, and the patient had a potassium greater than 7.2. Emergent laboratories were ordered. The patient was given sodium bicarbonate [address] Rodríguez was contacted. Calcium chloride 1 gram intravenously was given, and the patient was also given sodium bicarbonate [address] Rodríguez was contacted, and the patient had an admission order to intensive care unit (ICU) and emergent dialysis was also ordered. The hospitalist team was called for admission. Later the laboratory tests came back positive for a potassium of 8.6 with a BNP of 950. ALLERGIES: No known drug allergies. HOME MEDICATIONS: - Tylenol 650 mg by mouth every 6 hours as needed - Ventolin two puff inhalation four times a day as needed for shortness of breath - amlodipine 5 mg by mouth daily - bupropion 150 mg by mouth twice a day - vitamin D3 2000 units by mouth daily - clonazepam 1 mg by mouth four times a day - Lomotil one tablet by mouth four times a day as needed for diarrhea - Estradiol 1 mg by mouth daily - Imodium 2 mg by mouth every 4 hours as needed for diarrhea - Reglan 5 mg by mouth twice a day - ondansetron 4 mg by mouth every 6 hours as needed for nausea - promethazine 25 mg by mouth every 6 hours as needed for nausea - propranolol 120 mg by mouth daily - Protonix 40 mg by mouth daily - Rizatriptan 10 mg by mouth as needed for migraine - sertraline 200 mg by mouth daily - Kionex 15 grams by mouth as needed for hyperkalemia - Ambien 10 mg by mouth at night as needed for insomnia PAST MEDICAL HISTORY: 1. End stage renal disease on hemodialysis, dialysis days are Tuesday, and Tuesday. 2. Hypertension. 3. Mitral valve prolapse. 4. Anxiety, depression. 5. Migraines. 6. Ischemic bowel, status post ileostomy and J tube. 7. Gastroesophageal reflux disease (GERD). 8. Hyperlipidemia. 9. Chronic anemia. PAST SURGICAL HISTORY: 1. Colectomy and ileostomy for ischemic bowel. 2. Gastrojejunostomy tube placement. 3. Dialysis access. 4. Appendectomy. 5. Dilation and curettage. SOCIAL HISTORY: Denies alcohol use. Denies tobacco use. Denies any recreational drug use. The patient lives at home with her and two daughters. REVIEW OF SYSTEMS: GENERAL: Weakness and pale since this morning. Denies any fever or chills. HEENT: No vision changes. No auditory changes. CARDIOVASCULAR: The patient experienced a brief episode of pressure of the chest. No palpitations. RESPIRATORY: No cough. No sputum production. No wheezes. GASTROINTESTINAL: The patient had nausea and vomiting after dialysis since last Tuesday, which is about 4 days ago. That caused the patient to skip the hemodialysis on , which was 2 days ago. Denies any other pain. No diarrhea. NEUROLOGIC: The patient has generalized weakness, involuntary hand tremor intermittently. PSYCHIATRIC: History of anxiety and depression. MUSCULOSKELETAL: No muscle pain or joint pain. OBJECTIVE: VITAL SIGNS: After the patient arrived to the intensive care unit (ICU), during the dialysis, the patient was found to have a temperature of 96.7, pulse of 67, respirations 20, blood pressure 147/75, pulse oximetry 100% with 2 liters nasal cannula. GENERAL: Pale, clammy skin. Fatigued. No sign of acute distress. Alert and oriented times three. HEENT: Normocephalic, atraumatic. Extraocular motors are grossly intact. CARDIOVASCULAR: Positive S1, S2. Regular rate. LUNGS: Clear to auscultation bilaterally. ABDOMEN: Soft, nontender, nondistended. Bowel sounds present. The patient has an ileostomy that is full of stool. The patient has not cleaned the ostomy for the past 24 hours. EXTREMITIES: No edema. No cyanosis. NEUROLOGIC: Muscle strength 5/5. Sensation to fine touch grossly intact. LABORATORY DATA: WBC is 8.6, hemoglobin is 13.3, hematocrit 43.2, platelet count is 383. Sodium is 137, potassium 8.6, chloride is 106, carbon dioxide 16, BUN 61, creatinine 12.4, GFR is 3.3. Fasting glucose 133, calcium is 10.4, phosphorous 10.3, magnesium 2.0, total CK is 74, troponin I is less than 0.02, BNP is 950, albumin 3.4. PT is 14, INR 4.07. Venous blood gas showed a pH of 7.034, PCO2 is 55.8, PO2 is 28.7, HDL3 is 14.5. IMAGING STUDIES: Chest x-ray showed hyperinflation. No infiltrate. ASSESSMENT AND PLAN: 1. Severe hyperkalemia. Nephrology is consulted. The patient is admitted to the intensive care unit (ICU). The patient was started on urgent hemodialysis. Repeat basic metabolic panel (BMP) was performed after dialysis. The patient's potassium level improved to 4, which is normal range. We will continue to monitor the patient on telemetry. The patient had received bicarbonate and calcium chloride. 2. Severe bradycardia. Previously the patient had a heart rate of 40 before admission. The patient had a trial of atropine, and the patient had external pacing previously. Currently, the patient has a heart rate within normal range. Pacer was discontinued. We will continue to monitor the patient on telemetry. 3. Severe hypotension. The patient had a blood pressure less than 90 and diastolic blood pressure was not measurable previously. After dialysis, the patient's blood pressure is being maintained systolic between 110 to 130 with diastolic around 55 to 80. Continue to monitor. Due to the hypotension, the patient's blood pressure medication is on hold, which includes Norvasc 5 mg by mouth daily, propranolol 120 mg by mouth daily. 4. History of ischemic bowel, status post ileostomy. The patient will continue Imodium as needed and Lomotil as needed. 5. Migraine headaches. The patient's home medication is restarted, which includes Maxalt 10 mg by mouth daily as needed, maximum daily dose is less than three. 6. Anxiety/depression. Continue Zoloft and Klonopin and bupropion. 7. History of mitral valve prolapse. 8. End stage renal disease on hemodialysis. The patient is on Tuesday, and Tuesday dialysis schedule. The patient just received urgent hemodialysis today. We will continue with nephrology recommendations. 9. Insomnia. The patient had an episode of decreased mentation. Idalmis is on hold at this moment. 10. Deep vein thrombosis (DVT) prophylaxis. The patient is on heparin.
[2016-06-26] MEDS: buPROPion **SR TABLET** (ZYBAN) 150MG PO SCH (21:50)
[2016-06-27] VITALS: BP 120/57
[2016-06-27 04:00] VITALS: BP 128/60
[2016-06-27] MEDS: RIZATRIPTAN BENZOATE 10 MG TAB PO PRN (04:17)
[2016-06-27] MEDS: ACETAMINOPHEN TAB 650MG DOSE (2X325MG) PO PRN ×2 (04:17→20:18)
--- NOTE | 2016-06-27 04:21 | IPN ---
DATE OF SERVICE: 06/26/2016 Ms. Haider is seen in the intensive care unit on her bedside this morning. She was brought to the emergency room by emergency medical services (EMS) today due to severe bradycardia and hypotension. Apparently, she was found unresponsive by her family and blood pressure was not recorded on arrival of EMS. She was very bradycardic and was treated with atropine and intravenous (IV) fluids. She was initially treated with dopamine drip and in the emergency room her potassium level was noted to be 8.6. Her venous blood gas showed a pH of 7.0. The patient had missed her dialysis treatment on . I discussed the patient's condition and care plan with the emergency room physician earlier this morning and I have seen her in intensive care unit immediately after her arrival. We had already made arrangements for emergent hemodialysis in intensive care unit due to her severe hyperkalemia. PHYSICAL EXAMINATION: At present, she is awake and responds appropriately. Her is also present in the room. Her heart rate is now in high 50s and blood pressure 160/58 mmHg. Oxygen saturation is 99% on room air. Oral mucosa is dry. Head is atraumatic. Ears, nose and throat are unremarkable. Neck is supple and without any thyroid enlargement or jugular venous distention (JVD). Heart sounds are bradycardic and without a pericardial friction rub. Lungs have good bilateral air entry. Abdomen is soft and nontender and ileostomy is functioning. Bowel sounds are normal. Extremities have no cyanosis or clubbing. Neurologically, she is awake and alert at this point. She is responding and answering questions appropriately. Labs showed a sodium level 137 and potassium 8.6. BUN 61 and creatinine 12.4. CO2 is 16. Calcium level 10.4 and phosphorus 10.3. It is important to note that she received intravenous calcium twice in the emergency room due to severe bradycardia and hyperkalemia. PROBLEMS: 1. Severe hyperkalemia with EKG changes and hypotension. The patient is currently being dialyzed on her bedside. She has already been treated with intravenous calcium chloride. We have given her one dose of 50% dextrose as her fingerstick blood sugar was only 66. I do not feel that further medications are indicated at this point as dialysis is already in progress and her bradycardia is improving gradually. We will complete a 3-1/2-hour dialysis treatment using 1.0 mEq potassium bath. Her electrolytes will be repeated again after dialysis. 2. End-stage renal disease. The patient had missed her dialysis on . I have discussed with her about need for better compliance. She needs to understand the severity of her situation as she gets severe metabolic acidosis due to her ileostomy losses and missed dialysis. The patient needs compliance with dialysis treatment even when she is not feeling well. 3. Bradycardia and EKG changes. These are mostly result of severe hyperkalemia and likely to resolve with dialysis treatment. She is already improving and bradycardia has improved significantly. 4. Metabolic acidosis related to missed dialysis treatment and gastrointestinal (GI) losses from her ileostomy. This is also likely to resolve with hemodialysis. Chemistry will be repeated after dialysis.
--- NOTE | 2016-06-27 04:23 | IPN ---
DATE OF SERVICE: 06/26/2016 Ms. Haider is seen again this morning during dialysis. I have seen her earlier and have come back to see her due to her instability and bradycardia with hypotension. She is now feeling better and her heart rate is almost 70 per minute. She is tolerating her dialysis treatment very well. We are not removing any fluid as she is already somewhat dehydrated. We are using 1.0 mEq potassium bath. EKG changes are improving nicely and her T waves are already smaller compared with earlier this morning. The patient will complete her dialysis treatment for 3-1/2 hours. No other changes were made in her dialysis prescription.
[2016-06-27 04:41] LABS: MEAN CORPUSCULAR HEMOGLOBIN 32.3 pg (27.0-33.0); MEAN CORPUSCULAR HGB CONC 31.7 g/dl (32.0-36.5); RED CELL DISTRIBUTION WIDTH 13.5 % (11.5-14.5); WHITE BLOOD COUNT 4.8 K/mm3 (4.0-10.0)
[2016-06-27 04:53] LABS: ALBUMIN 3.1 GM/DL (3.2-5.2); CREATININE FOR GFR 6.74 MG/DL (0.55-1.02); GLOMERULAR FILTRATION RATE 6.7 (>51); PHOSPHORUS LEVEL 5.6 MG/DL (2.5-4.9)
[2016-06-27 04:56] LABS: POTASSIUM SERUM 5.2 MEQ/L (3.5-5.1)
[2016-06-27 05:08] LABS: MEAN CORPUSCULAR VOLUME 101.9 fl (80.0-96.0)
[2016-06-27] MEDS: HEPARIN SOD (PORCINE) 5000 UNITS/ML VIAL SC SCH ×3 (06:00→20:13)
[2016-06-27 08:00] VITALS: BP 121/59
[2016-06-27] MEDS: ESTRADIOL 1 MG TAB PO SCH (08:51)
[2016-06-27] MEDS: VITAMIN D 1,000 INTERNATIONAL UNITS TABLET PO SCH (08:52)
[2016-06-27] MEDS: buPROPion **SR TABLET** (ZYBAN) 150MG PO SCH ×2 (08:52→20:17)
[2016-06-27] MEDS: SERTRALINE 100 MG TAB PO SCH (08:52)
[2016-06-27] MEDS: clonazePAM 1 MG TAB PO SCH ×4 (08:52→21:11)
[2016-06-27] MEDS: PROPRANOLOL 60 MG LA CAP PO SCH (08:52)
[2016-06-27] MEDS ORDERED: SOD POLYSTYRENE SULFONATE SUSP 15 GM/60 ML UD PO ONE (10:15)
[2016-06-27 11:50] VITALS: BP 133/64
--- NOTE | 2016-06-27 12:34 | IPN ---
DATE: 06/27/2016 Mrs. Haider is seen this morning on her bedside in the intensive care unit. She is resting in her bed comfortably. She was admitted yesterday morning with severe bradycardia, hypotension and unresponsiveness. She was found to have severe hyperkalemia along with EKG changes and required emergent hemodialysis. She was dialyzed with 1.0 mEq potassium bath and her potassium level corrected to 4.0 after dialysis. She has been feeling well and her bradycardia and hypotension has improved. She has no dyspnea, chest pain, nausea or vomiting reported. On physical examination, temperature 96.9 degrees Fahrenheit, heart rate 72 per minute and respiratory rate 20 per minute. Blood pressure 121/59 mmHg and oxygen saturation 98% on room air. Head is atraumatic. Ears, nose and throat are unremarkable. Heart sounds regular and lungs clear to auscultation. Abdomen soft and nontender. Ileostomy is functioning. Extremities without any cyanosis or clubbing. No edema on her lower extremities. Today's labs show WBC count 4.8, hemoglobin 11.5 and hematocrit 36.2. Sodium 141 and potassium 5.2. CO2 26, BUN 28 and creatinine 6.74. Calcium level 9.0 and phosphorus 5.6. PROBLEMS: 1. Severe hyperkalemia. Her hyperkalemia improved with dialysis. She has mild hyperkalemia again today and it is likely to get worse by tomorrow. We will treat her with one dose of Kayexalate 15 grams by mouth today and recheck her electrolytes tomorrow. Should her hyperkalemia improve, then probably she can be discharged without dialysis tomorrow and go to her regular schedule on Tuesday, and Tuesday. She will need to follow a 2 grams potassium diet. 2. End-stage renal disease. The patient missed her dialysis on and she was dialyzed yesterday. Last week, she received only two dialysis treatments. She will either need dialysis tomorrow if her hyperkalemia persists or she can go back to her regular schedule if her hyperkalemia improves. The patient will need to be compliant with dialysis treatment three times a week due to recurrent hyperkalemia. 3. Hyperphosphatemia. Phosphorus level has improved significantly. This is likely to improve further with the next dialysis treatment. At this point, we will continue with her chronic phosphate binder dose. 3. Anemia. Her anemia is mild and does not need any intervention. 4. Bradycardia and hypotension. Those were related to severe hyperkalemia and have resolved. No intervention is indicated at this point. 5. Disposition. The patient can be discharged from the intensive care unit and transferred to a regular medical floor. We will reevaluate her for discharge to home tomorrow.
[2016-06-27] MEDS: LOMOTIL 2.5MG/0.025MG TABLET PO PRN ×2 (13:04→20:13)
[2016-06-27] MEDS: LOPERAMIDE 2 MG CAP PO PRN ×2 (13:05→18:32)
[2016-06-27 14:00] VITALS: BP 145/72
--- NOTE | 2016-06-27 16:51 | IPN ---
DATE: 06/27/2016 SUBJECTIVE: Patient is seen and examined in the room today. Patient stated she continues to have a migraine headache. Usually gets migraine headaches 1-2 times monthly. Triptan class of medication usually will help control the symptoms. Denies any recurrence of gastrointestinal (GI) symptoms including nausea and vomiting. Patient had a good night's sleep without Ambien. No overnight events are reported. OBJECTIVE: VITAL SIGNS: Temperature 96.9, pulse 72, respirations 20, blood pressure 121/59, pulse oximetry 98% in room air. GENERAL: No sign of acute distress, alert and oriented times three. HEENT: Normocephalic, atraumatic. Extraocular motors grossly intact. CARDIOVASCULAR: Positive S1, S2, regular rate. ABDOMEN: Soft, nontender, nondistended. Bowel sounds present. Ileostomy is patent. EXTREMITIES: No edema, no cyanosis. LABORATORY DATA: WBC 4.8, hemoglobin 11.5, hematocrit 36.2, platelet count 206. Sodium 141, potassium 5.2, chloride 105, carbon dioxide 26, BUN 28, creatinine 6.74, GFR 6.7, fasting glucose 90, calcium 9, phosphorous 5.6, albumin 3.1. ASSESSMENT AND PLAN: 1. Severe hyperkalemia on the day of admission. Patient had potassium of 8.6 and patient required emergent hemodialysis yesterday. Due to slight worsening of the electrolytes and after discussion with speeder frame tender, patient may benefit from additional dialysis session possibly tomorrow. Patient's regular hemodialysis days are Tuesday, , and Tuesday. Patient will receive one more dose of Kayexalate today. If patient's electrolytes are able to be maintained stable with medical management, patient will probably not need the extra session of hemodialysis. Will followup with speeder frame tender. 2. End-stage renal disease on hemodialysis. Dialysis days are Tuesday, , and Tuesday. Patient has a history of skipping routine dialysis in the past. 3. Bradycardia and hypotension related to severe hyperkalemia. After the urgent hemodialysis, symptoms completely resolved with no recurrence and no events are recorded on telemetry. Patient will be transferred to medical/surgical floor. 4. History of hypertension. During admission patient had hypotension. Currently blood pressure within normal range. 5. History of ischemic bowel status post ileostomy. Patient continues to have Imodium as needed and Lomotil as needed. The ileostomy has been stable. 6. Migraine headaches. Patient continues on Maxalt 10 mg by mouth as needed, maximum daily dose is 3. 7. Anxiety/depression. Continue Zoloft, Klonopin, and bupropion. 8. History of mitral valve prolapse. 9. Insomnia. During admission patient presented with decreased mentation. We are cautious with regard to any medication that will have a sedative effect. Ambien was on hold yesterday and patient still had a very good night's sleep without interruption without Ambien. 10. Deep venous thrombosis (DVT) prophylaxis. On heparin.
[2016-06-27] MEDS ORDERED: zolPIDEM TARTRATE 5 MG TAB PO PRN (18:00)
[2016-06-27] MEDS ORDERED: METOCLOPRAMIDE 5 MG TAB PO PRN (18:00)
[2016-06-27] MEDS: (RENVELA) SEVELAMER **CARBONate** 800 MG TAB PO SCH (18:32)
[2016-06-27 22:00] VITALS: BP 132/74
[2016-06-28] MEDS: HEPARIN SOD (PORCINE) 5000 UNITS/ML VIAL SC SCH ×2 (04:52→13:50)
[2016-06-28 06:00] VITALS: BP 136/79
[2016-06-28 06:23] LABS: MEAN CORPUSCULAR HEMOGLOBIN 32.9 pg (27.0-33.0); MEAN CORPUSCULAR HGB CONC 31.8 g/dl (32.0-36.5); MEAN CORPUSCULAR VOLUME 103.2 fl (80.0-96.0); RED CELL DISTRIBUTION WIDTH 13.4 % (11.5-14.5); WHITE BLOOD COUNT 5.1 K/mm3 (4.0-10.0)
[2016-06-28 06:27] VITALS: BP 136/84
[2016-06-28] MEDS: ESTRADIOL 1 MG TAB PO SCH (06:27)
[2016-06-28] MEDS: PROPRANOLOL 60 MG LA CAP PO SCH (06:27)
[2016-06-28] MEDS: buPROPion **SR TABLET** (ZYBAN) 150MG PO SCH (06:28)
[2016-06-28] MEDS: VITAMIN D 1,000 INTERNATIONAL UNITS TABLET PO SCH (06:28)
[2016-06-28] MEDS: SERTRALINE 100 MG TAB PO SCH (06:28)
[2016-06-28] MEDS: (RENVELA) SEVELAMER **CARBONate** 800 MG TAB PO SCH ×2 (06:28→13:49)
[2016-06-28] MEDS: LOPERAMIDE 2 MG CAP PO PRN (06:28)
[2016-06-28] MEDS: clonazePAM 1 MG TAB PO SCH ×2 (06:29→13:49)
[2016-06-28] MEDS: LOMOTIL 2.5MG/0.025MG TABLET PO PRN (06:32)
[2016-06-28 06:38] LABS: ALBUMIN 3.1 GM/DL (3.2-5.2); CALCIUM LEVEL 9.3 MG/DL (8.5-10.1); CREATININE FOR GFR 9.14 MG/DL (0.55-1.02); GLOMERULAR FILTRATION RATE 4.7 (>51); PHOSPHORUS LEVEL 7.6 MG/DL (2.5-4.9)
[2016-06-28 06:39] LABS: POTASSIUM SERUM 5.2 MEQ/L (3.5-5.1)
[2016-06-28] MEDS ORDERED: HEPARIN 1,000 UNITS/ML 10ML VIAL (FOR RADIOLOGY& DIALYSIS ONLY) IV ONE (09:45)
[2016-06-28] MEDS ORDERED: HEPARIN 1,000 UNITS/ML 10ML VIAL (FOR RADIOLOGY& DIALYSIS ONLY) XX ONE (09:45)
--- NOTE | 2016-06-28 09:51 | EDDOCDS ---
Physician Documentation [facility] Name: Jessi Haider Age: 55 yrs Sex: Female : 1960 Arrival Date: 06/26/2016 Time: 07:31 Bed 2 Private MD: Disposition: 06/26/16 08:19 Hospitalization ordered by Tamanna Landers for Inpatient Admission. Preliminary diagnosis is Hyperkalemia. - Bed requested for M ICU. - Status is Inpatient Admission. bcj - Condition is Stable. - Problem is new. - Symptoms have improved. Historical: - Allergies: No known drug Allergies; - Home Meds: 1. vitamin B complex oral tab daily (Last dose: 06/25/2016) 2. acetaminophen 325 mg Oral tab 2 tabs every 4-6 hours as needed (Last dose: Unknown) 3. albuterol sulfate 90 mcg/actuation Inhl aepb 2 puffs every 4 hours as needed (Last dose: Unknown) 4. rizatriptan 10 mg oral tab 1 tab as needed (Last dose: Unknown) 5. metoclopramide HCl 5 mg Oral tab 1 tab 4 times per day as needed (Last dose: Unknown) 6. ondansetron HCl 4 mg Oral tab every 6 hours as needed (Last dose: Unknown) 7. bupropion HCl 150 mg Oral TbER 1 tab 2 times per day (Last dose: 06/25/2016) 8. promethazine 25 mg Oral tab 1 tab every 6 hours as needed (Last dose: Unknown) 9. estradiol 1 mg Oral tab 1 tab once daily (Last dose: 06/25/2016) 10. Sertraline 200 mg daily (Last dose: 06/25/2016) 11. clonazepam 1 mg Oral tab 1 tab four times a day (Last dose: 06/25/2016) 12. propranolol 120 mg Oral Cs24 1 cap nightly (Last dose: 06/25/2016) 13. Protonix 40 mg Oral TbEC 1 tab once daily (Last dose: 06/25/2016) 14. zolpidem 10 mg Oral tab 1 tab nightly (Last dose: 06/25/2016) 15. 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 No barriers to communication noted, The patient speaks fluent Khmer. - Family history: Not pertinent. - : The pt / caregiver states he / she is not on anticoagulants. Home medication list is obtained from the patient. - Exposure Risk Screening:: None identified. Vital Signs: 06/26 07:54 BP 90 / ??? RA Supine (man/reg); Pulse 60; Resp 22; Temp 96.4(O); Pulse Ox 100% on kpj Non-rebreather mask; Weight 61.37 kg / 135.3 lbs (M); Height 5 ft. 6 in. (167.64 cm) (R); Pain 8/10; 07:55 BP 122 / 78 Supine (man/reg); Pulse 74; Resp 20; Pulse Ox 100% on Mask: Non-rebreather kpj mask; 08:00 BP 124 / 80 Supine (man/reg); Pulse 71; Resp 20; Pulse Ox 100% on Mask: Non-rebreather kpj mask; 07:54 Body Mass Index 21.84 (61.37 kg, 167.64 cm) kpj 07:54 paced at 60 external pacemaker. [facility] MDM: 07:45 Customer Sales Distributor/Pulse Ox/q 30 min VS ordered. sd1 07:45 IV Saline Lock ordered. sd1 07:45 Rhythm Strip to chart ordered. sd1 07:45 Undress patient appropriately for examination ordered. sd1 07:45 Calcium Chloride 1 grams IVP once ordered. sd1 07:46 B-Type Natiuretic Peptide Ordered. EDMS 07:46 Basic Metabolic Profile Ordered. EDMS 07:46 CBC with Diff Ordered. EDMS 07:46 Cardiac Injury Profile Ordered. EDMS 07:46 Prothrombin Time Profile\E\INR Ordered. EDMS 07:46 Troponin Ordered. EDMS 07:46 Accucheck ordered. sd1 07:47 portable chest Ordered. EDMS 07:47 ECG WITH READING ER PHYS+CARDIAG ordered. EDMS 07:49 Venous Blood Gas (large pea green tube on ice) Ordered. EDMS 07:54 Ondansetron 8 mg IVP once ordered. jo4 07:57 fentaNYL (PF) 25 mcg IVP once ordered. sd1 08:02 MAGNESIUM LEVEL Ordered. EDMS 08:02 PHOSPHOROUS LEVEL Ordered. EDMS 08:06 DOPamine 7.5 mcg/kg/min IV at calculated rate continuous; Titrate 2mcg/kg/min to keep sd1 SBP>90mmHg Max rate 20mcg/kg/min ordered. 08:06 CBC with Diff Reviewed. sd1 08:06 Venous Blood Gas (large pea green tube on ice) Reviewed. sd1 08:06 Fingerstick Blood Sugar Reviewed. sd1 08:10 Sodium Bicarbonate 1 amp IVP once ordered. sd1 08:15 ECG WITH READING ER PHYS+CARDIAG ordered. EDMS 08:27 Admission / Observation Status ordered. EDMS 08:27 NPO DIET ordered. EDMS 08:41 B-Type Natiuretic Peptide Reviewed. sd1 08:41 Basic Metabolic Profile Reviewed. sd1 08:41 PHOSPHOROUS LEVEL Reviewed. sd1 08:41 Cardiac Injury Profile Reviewed. sd1 08:41 Troponin Reviewed. sd1 08:41 MAGNESIUM LEVEL Reviewed. sd1 08:53 [facility] [place] was scanned into [employer] and attached to record. 18:17 T-Sheet-- Draft Copy was scanned into [employer] and attached to record. klr Administered Medications: 07:30 Drug: DOPamine 460.275 mcg/min [dopamine 400 mg/500 mL (800 mcg/mL) in 5 % dextrose [facility] intravenous soln] {Note: started by EMS continued per Dr Upton..} Route: IV; Rate: calculated rate; Site: left hand; 07:55 Follow up: BP 122 / 78 Supine Right Arm Manual Regular; Pulse 74 bpm; Resp 20 bpm; [facility] Pulse Ox 100% Mask: Non-rebreather mask; Rate change 5 mcg/kg/min 08:00 Follow up: Dopamine drip stopped per Dr Upton [facility] 08:00 Follow up: BP 124 / 80 Supine Right Arm Manual Regular; Pulse 71 bpm; Resp 20 bpm; kpj Pulse Ox 100% Mask: Non-rebreather mask 08:00 Follow up: IV Status: Completed infusion ml6 07:50 Drug: Calcium Chloride 1 grams [calcium chloride 100 mg/mL (10 %) intravenous syringe [facility] (10 mL)] {Co-Signature: [email or web address] (Jesika Hardin RN).} {Note: given by Placido.} Route: IVP; Site: right forearm; 07:58 Drug: fentaNYL (PF) 25 mcg [fentanyl (PF) 50 mcg/mL injection solution (0.5 mL)] Route: ml6 IVP; Site: right forearm; 08:00 Drug: Ondansetron 8 mg [ondansetron HCl 2 mg/mL intravenous solution (3.75 mL)] Route: ml6 IVP; Site: right forearm; 08:17 Drug: Sodium Bicarbonate 1 amp Route: IVP; Site: right forearm; ml6 Signatures: Dispatcher [employer] EDMS Jenny Paul MD MD sd1 Sanjuanita Wilcox RN RN Star Lopez RN RN Jignesh Landrum, Reg Reg lg Dejon Larry RN RN ml6 Sosa Lombardi, SECURITY INVESTIGATOR SECURITY INVESTIGATOR ar3 Ivette Freire DO DO jo4 Jelly Castillo klkianna Hardin RN [id number] The chart was reviewed and I authenticate all verbal orders and agree with the evaluation and treatment provided.Corrections: (The following items were deleted from the chart) 08:02 07:47 MAGNESIUM LEVEL+LAB ordered. EDMS EDMS 08:02 07:47 PHOSPHOROUS LEVEL+LAB ordered. EDMS EDMS Attachments: 08:53 [facility] Payment Agreement lg 18:17 T-Sheet-- Draft Copy klr Chart Complete MTDD
--- NOTE | 2016-06-28 09:51 | EDDOCDS ---
Nurse's Notes [facility] Name: Jessi Haider Age: 55 yrs Sex: Female : 1960 Arrival Date: 06/26/2016 Time: 07:31 Bed 2 Private MD: Diagnosis: Hyperkalemia Presentation: 06/26 07:32 Presenting complaint: EMS states: dialysis patient missed dialysis on . This [facility] morning not feeling well nausea, diaphoretic hypotensive and bradycardic. heart rate in the 40's 1/2 mg atropine given without any improvement in heart rate , began external pacing rate of 60 capture at 140. dopamine started at 7.5 mcg /kg/min. Adult Sepsis Screening: Patient has new or worsening altered mentation (1 point). Patient's respiratory rate is less than 22. Systolic blood pressure is less than or equal to 100 (1 point). Patient has a qSOFA score of 2. Suicide/Homicide risk assessment- Unable to assess, the patient is critically ill. Status: Patient is not a patient service associate or dependent. Transition of care: patient was not received from another setting of care. 07:32 Acuity: SELENA Level 2 [facility] 07:32 Acuity: SELENA Level 2 [facility] 07:32 Method Of Arrival: Ambulance [facility] Triage Assessment: 07:50 General: Appears ill, Behavior is appropriate for age. Pain: Location: chest from the [facility] pacing pads Pain currently is 8 out of 10 on a pain scale. HIV screening NA for this visit Offered previously. The patient is triaged at the bedside. See Assessment in Nurses Notes section of ED record. Historical: - Allergies: No known drug Allergies; - Home Meds: 1. vitamin B complex oral tab daily (Last dose: 06/25/2016) 2. acetaminophen 325 mg Oral tab 2 tabs every 4-6 hours as needed (Last dose: Unknown) 3. albuterol sulfate 90 mcg/actuation Inhl aepb 2 puffs every 4 hours as needed (Last dose: Unknown) 4. rizatriptan 10 mg oral tab 1 tab as needed (Last dose: Unknown) 5. metoclopramide HCl 5 mg Oral tab 1 tab 4 times per day as needed (Last dose: Unknown) 6. ondansetron HCl 4 mg Oral tab every 6 hours as needed (Last dose: Unknown) 7. bupropion HCl 150 mg Oral TbER 1 tab 2 times per day (Last dose: 06/25/2016) 8. promethazine 25 mg Oral tab 1 tab every 6 hours as needed (Last dose: Unknown) 9. estradiol 1 mg Oral tab 1 tab once daily (Last dose: 06/25/2016) 10. Sertraline 200 mg daily (Last dose: 06/25/2016) 11. clonazepam 1 mg Oral tab 1 tab four times a day (Last dose: 06/25/2016) 12. propranolol 120 mg Oral Cs24 1 cap nightly (Last dose: 06/25/2016) 13. Protonix 40 mg Oral TbEC 1 tab once daily (Last dose: 06/25/2016) 14. zolpidem 10 mg Oral tab 1 tab nightly (Last dose: 06/25/2016) 15. 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 No barriers to communication noted, The patient speaks fluent Polish. - Family history: Not pertinent. - : The pt / caregiver states he / she is not on anticoagulants. Home medication list is obtained from the patient. - Exposure Risk Screening:: None identified. Screenin:23 Screening information is obtained from the patient. Fall risk: No risks identified. ml6 Assistance ADL's: requires no assistance with activities of daily living. Abuse/DV Screen: The patient / caregiver reports he/she is: not in a situation that causes fear, pain or injury. Nutritional screening: No deficits noted. Advance Directives: Currently, there is no health care proxy. home support is adequate. Assessment: 07:30 General: Appears ill, Behavior is cooperative, Reports nausea and weakness for 2 days, [facility] missed dialysis on . Pain: Location: chest from being paced Pain currently is 8 out of 10 on a pain scale. Neurological: Level of Consciousness is lethargic. Cardiovascular: Capillary refill is > 3 seconds in bilateral fingers Rhythm is paced at 60 via external pacemaker. Respiratory: Airway is patent Respiratory effort is even, unlabored, Respiratory pattern is regular, symmetrical. GI: Reports nausea. Derm: Skin is dry, Skin is pale, pink, Skin temperature is cool. 07:30 General: Appears ill, uncomfortable, Behavior is anxious, cooperative. Pain: Location: ml6 chest Pain currently is 4 out of 10 on a pain scale. Pain does not radiate. Quality of pain is described as burning. Neurological: No deficits noted. Level of Consciousness is awake, lethargic, Oriented to person, place, time, Rn Case Manager are equal bilaterally. Cardiovascular: Capillary refill < 3 seconds. Cardiovascular: Rhythm is regular. Respiratory: Airway is patent. Respiratory: Airway is patent Respiratory effort is even, unlabored, Respiratory pattern is regular, symmetrical, Breath sounds are clear bilaterally. GI: No deficits noted. 08:22 Reassessment: Patient appears in no apparent distress at this time. Patient denies pain ml6 at this time. Patient states feeling better. Patient states symptoms have improved. General: Appears in no apparent distress, comfortable, Behavior is appropriate for age, cooperative. Pain: Denies pain. Neurological: No deficits noted. Level of Consciousness is awake, alert, Oriented to person, place, time. Cardiovascular: No deficits noted. Capillary refill < 3 seconds is brisk in bilateral fingers. Respiratory: No deficits noted. Airway is patent Respiratory effort is even, unlabored, Respiratory pattern is regular, symmetrical, Breath sounds are clear bilaterally. GI: No deficits noted. Abdomen is flat. Vital Signs: 07:54 BP 90 / ??? RA Supine (man/reg); Pulse 60; Resp 22; Temp 96.4(O); Pulse Ox 100% on kpj Non-rebreather mask; Weight 61.37 kg (M); Height 5 ft. 6 in. (167.64 cm) (R); Pain 8/10; 07:55 BP 122 / 78 Supine (man/reg); Pulse 74; Resp 20; Pulse Ox 100% on Mask: Non-rebreather kpj mask; 08:00 BP 124 / 80 Supine (man/reg); Pulse 71; Resp 20; Pulse Ox 100% on Mask: Non-rebreather kpj mask; 07:54 Body Mass Index 21.84 (61.37 kg, 167.64 cm) [facility] 07:54 paced at 60 external pacemaker. [facility] Vitals: 07:54 Log In Time N/A - ambulance arrival. [facility] ED Course: 07:30 Resting quietly. kpj 07:30 The patient / caregiver is instructed regarding the plan of care and ED course. Patient [facility] has correct armband on for positive identification. monitor and storage bin tender on. Pulse ox on. NIBP on. 07:30 Pacing: Patient was paced with an external pacer Using demand mode, Rate set at 60 in kpj beats/min. Current set at 140 milliamps. Capture was noted. 07:30 Maintain field IV. Dressing intact. Good blood return noted. Site clean & dry. Gauge & kpj site: 20 gauge left hand. O2 via non-rebreather \T\ 15L/min. 07:32 Patient visited by Sosa Lombardi PCA. ar3 07:32 Leann Abel,RN is Primary Nurse. kpj 07:32 Patient moved to Waiting ar3 07:32 Patient moved to 2 kp 07:36 Triage Initiated kpj 07:44 Primary Nurse role handed off by Leann Abel,RN ar3 07:44 Jenny Paul MD is Attending Physician. sd1 07:44 Patient visited by Jenny Paul MD. sd1 07:49 Venous Blood Gas (large pea green tube on ice) Sent. nb2 07:49 B-Type Natiuretic Peptide Sent. nb2 07:49 Basic Metabolic Profile Sent. nb2 07:49 CBC with Diff Sent. nb2 07:49 Cardiac Injury Profile Sent. nb2 07:49 Prothrombin Time Profile\E\INR Sent. nb2 07:49 Troponin Sent. nb2 07:50 Inserted saline lock: 18 gauge in right forearm by Bob Hardin RN. kpj 07:50 EKG done. (by ED staff). Reviewed by Jenny Paul MD. dem1 07:55 Pacing: discontinued pacing [id number] current heart rate of 79 bpm.. kpj 08:04 PHOSPHOROUS LEVEL Sent. ar3 08:04 MAGNESIUM LEVEL Sent. ar3 08:17 Patient visited by Dejon Larry RN. ml6 08:18 EKG done. (by ED staff). Reviewed by Jenny Paul MD. dem1 08:19 Patient visited by Dru Ramon. dem1 08:19 Madayaundrea Nolen is Hospitalizing Provider. sd1 08:25 No procedures done that require assistance. ml6 08:49 portable chest Returned. EDMS 08:53 ID-EM Payment Agreement was scanned into [employer] and attached to record. lg 18:17 T-Sheet-- Draft Copy was scanned into [employer] and attached to record. klr Administered Medications: 07:30 Drug: DOPamine 460.275 mcg/min [dopamine 400 mg/500 mL (800 mcg/mL) in 5 % dextrose [facility] intravenous soln] {Note: started by EMS continued per Dr Upton..} Route: IV; Rate: calculated rate; Site: left hand; 07:55 Follow up: BP 122 / 78 Supine Right Arm Manual Regular; Pulse 74 bpm; Resp 20 bpm; [facility] Pulse Ox 100% Mask: Non-rebreather mask; Rate change 5 mcg/kg/min 08:00 Follow up: Dopamine drip stopped per Dr Upton [facility] 08:00 Follow up: BP 124 / 80 Supine Right Arm Manual Regular; Pulse 71 bpm; Resp 20 bpm; kpj Pulse Ox 100% Mask: Non-rebreather mask 08:00 Follow up: IV Status: Completed infusion ml6 07:50 Drug: Calcium Chloride 1 grams [calcium chloride 100 mg/mL (10 %) intravenous syringe [facility] (10 mL)] {Co-Signature: [email or web address] (Jesika Hardin RN).} {Note: given by Placido.} Route: IVP; Site: right forearm; 07:58 Drug: fentaNYL (PF) 25 mcg [fentanyl (PF) 50 mcg/mL injection solution (0.5 mL)] Route: ml6 IVP; Site: right forearm; 08:00 Drug: Ondansetron 8 mg [ondansetron HCl 2 mg/mL intravenous solution (3.75 mL)] Route: ml6 IVP; Site: right forearm; 08:17 Drug: Sodium Bicarbonate 1 amp Route: IVP; Site: right forearm; ml6 Intake: Order Results: Lab Order: B-Type Natiuretic Peptide; SPEC'M 06/26/16 07:46 Test: BRAIN NATRIURETIC PEPTIDE; Value: 950; Range: <100; Abnormal: Above high normal; Units: PG/ML; Status: F Lab Order: Basic Metabolic Profile; SPEC06/26/16 07:46 Test: GLUCOSE, FASTING; Value: 133; Range: 70-105; Abnormal: Above high normal; Units: MG/DL; Status: F Test: BLOOD UREA NITROGEN; Value: 61; Range: 7-18; Abnormal: Above high normal; Units: MG/DL; Status: F Test: CREATININE FOR GFR; Value: 12.40; Range: 0.55-1.02; Abnormal: Above high normal; Units: MG/DL; Status: F Test: GLOMERULAR FILTRATION RATE; Value: 3.3; Range: >51; Abnormal: Below low normal; Status: F Test: SODIUM LEVEL; Value: 137; Range: 136-145; Units: MEQ/L; Status: F Test: POTASSIUM SERUM; Value: 8.6; Range: 3.5-5.1; Abnormal: Above upper panic limits; Units: MEQ/L; Status: F Test: CHLORIDE LEVEL; Value: 106; Range: 98-107; Units: MEQ/L; Status: F Test: CARBON DIOXIDE LEVEL; Value: 16; Range: 21-32; Abnormal: Below low normal; Units: MEQ/L; Status: F Test: ANION GAP; Value: 15; Range: 8-16; Units: MEQ/L; Status: F Test: CALCIUM LEVEL; Value: 10.4; Range: 8.5-10.1; Abnormal: Above high normal; Units: MG/DL; Status: F Test Note: ; Units are mL/min/1.73 m2 Chronic Kidney Disease Staging per NKF: Stage I & II GFR >=60 Normal to Mildly Decreased Stage III GFR 30-59 Moderately Decreased Stage IV GFR 15-29 Severely Decreased Stage V GFR <15 Very Little GFR Left ESRD GFR <15 on [employer] Lab Order: CBC with Diff; SPEC06/26/16 07:46 Test: WHITE BLOOD COUNT; Value: 8.6; Range: 4.0-10.0; Units: K/mm3; Status: F Test: RED BLOOD COUNT; Value: 4.04; Range: 4.00-5.40; Units: M/mm3; Status: F Test: HEMOGLOBIN; Value: 13.3; Range: 12.0-16.0; Units: g/dl; Status: F Test: HEMATOCRIT; Value: 43.2; Range: 36.0-47.0; Units: %; Status: F Test: MEAN CORPUSCULAR VOLUME; Value: 106.9; Range: 80.0-96.0; Abnormal: Above high normal; Units: fl; Status: F Test: MEAN CORPUSCULAR HEMOGLOBIN; Value: 32.9; Range: 27.0-33.0; Units: pg; Status: F Test: MEAN CORPUSCULAR HGB CONC; Value: 30.7; Range: 32.0-36.5; Abnormal: Below low normal; Units: g/dl; Status: F Test: RED CELL DISTRIBUTION WIDTH; Value: 13.0; Range: 11.5-14.5; Units: %; Status: F Test: PLATELET COUNT, AUTOMATED; Value: 383; Range: 150-450; Units: k/mm3; Status: F Test: NEUTROPHILS %; Value: 71.7; Range: 36.0-66.0; Abnormal: Above high normal; Units: %; Status: F Test: LYMPH %; Value: 17.1; Range: 24.0-44.0; Abnormal: Below low normal; Units: %; Status: F Test: MONO %; Value: 5.7; Range: 0.0-5.0; Abnormal: Above high normal; Units: %; Status: F Test: EOS %; Value: 3.2; Range: 0.0-3.0; Abnormal: Above high normal; Units: %; Status: F Test: BASO %; Value: 1.0; Range: 0.0-1.0; Units: %; Status: F Test: LARGE UNSTAINED CELL %; Value: 1.2; Range: 0.0-4.0; Units: %; Status: F Test: NEUTROPHILS #; Value: 6.2; Range: 1.8-7.7; Units: K/mm3; Status: F Test: LYMPH #; Value: 1.6; Range: 1.5-4.5; Units: K/mm3; Status: F Test: MONO #; Value: 0.5; Range: 0.0-0.8; Units: K/mm3; Status: F Test: EOS #; Value: 0.3; Range: 0.0-0.50; Units: K/mm3; Status: F Test: BASO #; Value: 0.1; Range: 0.0-0.2; Units: K/mm3; Status: F Test: LARGE UNSTAINED CELL #; Value: 0.1; Range: 0.0-0.4; Units: K/mm3; Status: F Lab Order: Cardiac Injury Profile; [facility] 06/26/16 07:46 Test: CPK CREATINE PHOSPHOKINASE; Value: 74; Range: 26-192; Units: U/L; Status: F Test: CK-MB VALUE MASS; Value: 1.9; Range: 0.0-3.6; Units: NG/ML; Status: F Test: MB/CK RELATIVE INDEX; Value: 2.56; Range: < OR =4; Status: F Test Note: ; DIAGNOSIS CRITERIA MMB ng/ml Relative Index (RI) NON-AMI < or = 5 N/A DELCID ZONE > 5 < or = 4 AMI > 5 > 4 Lab Order: Prothrombin Time Profile\E\INR; [facility] 06/26/16 08:29 Test: PROTHROMBIN TIME; Value: 14.0; Range: 12.3-14.5; Units: SECONDS; Status: F Test: INR; Value: 1.07; Status: F Test Note: ; THERAPUTIC HUMAN INR VALUES INDICATIONS NORMAL RANGES PROPHYLAXIS/TREATMENT OF: VENOUS THROMBOSIS 2.0-3.0 PULMONARY EMBOLISM 2.0-3.0 PREVENTION OF SYSTEMIC EMBOLISM FROM: TISSUE HEART VALVES 2.0-3.0 ACUTE MYOCARDIAL INFARCTION 2.0-3.0 VALVULAR HEART DISEASE 2.0-3.0 ATRIAL FIBRILLATION 2.0-3.0 MECHANICAL VALVES(HIGH RISK) 2.5-3.5 RECURRENT MYOCARDIAL INFARCTION 2.5-3.5 Lab Order: Troponin; 06/26/16 07:46 Test: TROPONIN I; Value: < 0.02; Range: < 0.10; Units: NG/ML; Status: F Test Note: ; Troponin I Reference Interval for [employer] LOCI: 99th Percentile= 0.00-0.045 ng/ml Risk Stratification: <= 0.10 ng/ml Decreased Risk for Adverse Clinical Events. 0.10-1.50 ng/ml Increased Risk for Adverse Clinical Events. Evaluation of additional criterion and/or repeat testing in 2-6 hours is suggested to rule out myocardial damage. >= 1.50 ng/ml Indicative of Myocardial Injury. Lab Order: Venous Blood Gas (large pea green tube on ice); [facility]06/26/16 07:46 Test: VENOUS PH; Value: 7.034; Range: 7.330-7.430; Abnormal: Below low normal; Units: UNITS; Status: F Test: VENOUS PARTIAL PRESSURE CO2; Value: 55.8; Range: 38.0-50.0; Abnormal: Above high normal; Units: mmHg; Status: F Test: VENOUS PARTIAL PRESSURE O2; Value: 28.7; Range: 30.0-50.0; Abnormal: Below low normal; Units: mmHg; Status: F Test: VENOUS TOTAL CO2; Value: 16.3; Range: 24.0-28.0; Abnormal: Below low normal; Units: MEQ/L; Status: F Test: VENOUS HCO3; Value: 14.5; Range: 23.0-27.0; Abnormal: Below low normal; Units: MEQ/L; Status: F Test: VENOUS BASE EXCESS; Value: -16.4; Range: -2.0-2.0; Abnormal: Below low normal; Status: F Test: VENOUS STANDARD HCO3; Value: 11.3; Units: MEQ/L; Status: F Test: VENOUS O2 SATURATION; Value: 39.4; Range: 60.0-80.0; Abnormal: Below low normal; Units: %; Status: F Lab Order: Fingerstick Blood Sugar; [facility]06/26/16 07:50 Test: BEDSIDE GLUCOSE; Value: 118; Range: 70-105; Abnormal: Above high normal; Units: MG/DL; Status: F Lab Order: MAGNESIUM LEVEL; SPEC'06/26/16 07:46 Test: MAGNESIUM LEVEL; Value: 2.0; Range: 1.8-2.4; Units: MG/DL; Status: F Lab Order: PHOSPHOROUS LEVEL; SPEC'06/26/16 07:46 Test: PHOSPHORUS LEVEL; Value: 10.3; Range: 2.5-4.9; Abnormal: Above high normal; Units: MG/DL; Status: F Radiology Order: portable chest Test: portable chest REASON FOR EXAMINATION: Shortness of Breath; PORTABLE CHEST X-RAY: Single view.; ; HISTORY: Shortness of breath.; ; COMPARISON STUDY: March 17, 2016.; ; FINDINGS: EKG monitoring equipment is seen. A tunneled catheter is noted in the; expected location of the superior vena cava from the left internal jugular vein; region. The lungs are somewhat hyperinflated but clear. Heart is not felt to be; enlarged. No infiltrate is seen. Pleural angles are sharp.; ; IMPRESSION:; Hyperinflation. No infiltrate seen. Central venous line.; ; ; ; ; Unreviewed; Outcome: 08:19 Decision to Hospitalize by Provider. sd1 08:23 Discharge Assessment: patient administered narcotics - yes. Patient was admitted to the [address] or transferred to another facility. The following High Risk Discharge criteria are identified: None. Admitted to ICU accompanied by nurse, accompanied by tech, via stretcher, with oxygen, on monitor, with chart. Condition: stable. No special radiology studies were completed. Admission hand-off: Other: bedside report to be given . Property :Personal belongings accompany Pt. 08:51 Patient left the ED. [facility] Signatures: Dispatcher [employer] EDMS Jenny Paul MD MD sd1 Sanjuanita Wilcox RN RN [facility] Star Cano RN RN [facility] Jignesh Suero Reg Reg lg Lowe, Matthew RN RN 6 Maria C, Sosa, TRUCK CRANE OPERATOR HELPER TRUCK CRANE OPERATOR HELPER ar3 Tristen, Ladaneishia dem1 Jelly Castillo Nicole nb2 Jesika Hardin RN [email or web address] Corrections: (The following items were deleted from the chart) 08:02 07:49 PHOSPHOROUS LEVEL+LAB sent. 2 EDMS 08:02 07:49 MAGNESIUM LEVEL+LAB sent. [facility] EDMS 08:09 07:55 Rate change 5 mcg/kg/min [facility] 08:12 08:08 BP 122 / 78 Supine Right Arm Manual Regular; Pulse 74 bpm; Resp 20 bpm; Pulse Ox kp 100% Mask: Non-rebreather mask; Rate change 5 mcg/kg/min [facility] 08:12 08:09 BP 124 / 80 Supine Right Arm Manual Regular; Pulse 71 bpm; Resp 20 bpm; Pulse Ox j 100% Mask: Non-rebreather mask kpj Chart Complete MTDD
--- NOTE | 2016-06-28 09:51 | EDDOCDS ---
Physician Documentation [facility] Name: Jessi Haider Age: 55 yrs Sex: Female : 1960 Arrival Date: 06/26/2016 Time: 07:31 Bed 2 Private MD: Disposition: 06/26/16 08:19 Hospitalization ordered by Tamanna Landers for Inpatient Admission. Preliminary diagnosis is Hyperkalemia. - Bed requested for M ICU. - Status is Inpatient Admission. bcj - Condition is Stable. - Problem is new. - Symptoms have improved. Historical: - Allergies: No known drug Allergies; - Home Meds: 1. vitamin B complex oral tab daily (Last dose: 06/25/2016) 2. acetaminophen 325 mg Oral tab 2 tabs every 4-6 hours as needed (Last dose: Unknown) 3. albuterol sulfate 90 mcg/actuation Inhl aepb 2 puffs every 4 hours as needed (Last dose: Unknown) 4. rizatriptan 10 mg oral tab 1 tab as needed (Last dose: Unknown) 5. metoclopramide HCl 5 mg Oral tab 1 tab 4 times per day as needed (Last dose: Unknown) 6. ondansetron HCl 4 mg Oral tab every 6 hours as needed (Last dose: Unknown) 7. bupropion HCl 150 mg Oral TbER 1 tab 2 times per day (Last dose: 06/25/2016) 8. promethazine 25 mg Oral tab 1 tab every 6 hours as needed (Last dose: Unknown) 9. estradiol 1 mg Oral tab 1 tab once daily (Last dose: 06/25/2016) 10. Sertraline 200 mg daily (Last dose: 06/25/2016) 11. clonazepam 1 mg Oral tab 1 tab four times a day (Last dose: 06/25/2016) 12. propranolol 120 mg Oral Cs24 1 cap nightly (Last dose: 06/25/2016) 13. Protonix 40 mg Oral TbEC 1 tab once daily (Last dose: 06/25/2016) 14. zolpidem 10 mg Oral tab 1 tab nightly (Last dose: 06/25/2016) 15. 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 No barriers to communication noted, The patient speaks fluent Vietnamese. - Family history: Not pertinent. - : The pt / caregiver states he / she is not on anticoagulants. Home medication list is obtained from the patient. - Exposure Risk Screening:: None identified. Vital Signs: 06/26 07:54 BP 90 / ??? RA Supine (man/reg); Pulse 60; Resp 22; Temp 96.4(O); Pulse Ox 100% on kpj Non-rebreather mask; Weight 61.37 kg / 135.3 lbs (M); Height 5 ft. 6 in. (167.64 cm) (R); Pain 8/10; 07:55 BP 122 / 78 Supine (man/reg); Pulse 74; Resp 20; Pulse Ox 100% on Mask: Non-rebreather kpj mask; 08:00 BP 124 / 80 Supine (man/reg); Pulse 71; Resp 20; Pulse Ox 100% on Mask: Non-rebreather kpj mask; 07:54 Body Mass Index 21.84 (61.37 kg, 167.64 cm) kpj 07:54 paced at 60 external pacemaker. [facility] MDM: 07:45 Field Map Editor/Pulse Ox/q 30 min VS ordered. sd1 07:45 IV Saline Lock ordered. sd1 07:45 Rhythm Strip to chart ordered. sd1 07:45 Undress patient appropriately for examination ordered. sd1 07:45 Calcium Chloride 1 grams IVP once ordered. sd1 07:46 B-Type Natiuretic Peptide Ordered. EDMS 07:46 Basic Metabolic Profile Ordered. EDMS 07:46 CBC with Diff Ordered. EDMS 07:46 Cardiac Injury Profile Ordered. EDMS 07:46 Prothrombin Time Profile\E\INR Ordered. EDMS 07:46 Troponin Ordered. EDMS 07:46 Accucheck ordered. sd1 07:47 portable chest Ordered. EDMS 07:47 ECG WITH READING ER PHYS+CARDIAG ordered. EDMS 07:49 Venous Blood Gas (large pea green tube on ice) Ordered. EDMS 07:54 Ondansetron 8 mg IVP once ordered. jo4 07:57 fentaNYL (PF) 25 mcg IVP once ordered. sd1 08:02 MAGNESIUM LEVEL Ordered. EDMS 08:02 PHOSPHOROUS LEVEL Ordered. EDMS 08:06 DOPamine 7.5 mcg/kg/min IV at calculated rate continuous; Titrate 2mcg/kg/min to keep sd1 SBP>90mmHg Max rate 20mcg/kg/min ordered. 08:06 CBC with Diff Reviewed. sd1 08:06 Venous Blood Gas (large pea green tube on ice) Reviewed. sd1 08:06 Fingerstick Blood Sugar Reviewed. sd1 08:10 Sodium Bicarbonate 1 amp IVP once ordered. sd1 08:15 ECG WITH READING ER PHYS+CARDIAG ordered. EDMS 08:27 Admission / Observation Status ordered. EDMS 08:27 NPO DIET ordered. EDMS 08:41 B-Type Natiuretic Peptide Reviewed. sd1 08:41 Basic Metabolic Profile Reviewed. sd1 08:41 PHOSPHOROUS LEVEL Reviewed. sd1 08:41 Cardiac Injury Profile Reviewed. sd1 08:41 Troponin Reviewed. sd1 08:41 MAGNESIUM LEVEL Reviewed. sd1 08:53 [place] was scanned into [employer] and attached to record. 18:17 T-Sheet-- Draft Copy was scanned into [employer] and attached to record. klr Administered Medications: 07:30 Drug: DOPamine 460.275 mcg/min [dopamine 400 mg/500 mL (800 mcg/mL) in 5 % dextrose [facility] intravenous soln] {Note: started by EMS continued per Dr Upton..} Route: IV; Rate: calculated rate; Site: left hand; 07:55 Follow up: BP 122 / 78 Supine Right Arm Manual Regular; Pulse 74 bpm; Resp 20 bpm; [facility] Pulse Ox 100% Mask: Non-rebreather mask; Rate change 5 mcg/kg/min 08:00 Follow up: Dopamine drip stopped per Dr Upton [facility] 08:00 Follow up: BP 124 / 80 Supine Right Arm Manual Regular; Pulse 71 bpm; Resp 20 bpm; kpj Pulse Ox 100% Mask: Non-rebreather mask 08:00 Follow up: IV Status: Completed infusion ml6 07:50 Drug: Calcium Chloride 1 grams [calcium chloride 100 mg/mL (10 %) intravenous syringe [facility] (10 mL)] {Co-Signature: [email or web address] (Jesika Hardin RN).} {Note: given by Placido.} Route: IVP; Site: right forearm; 07:58 Drug: fentaNYL (PF) 25 mcg [fentanyl (PF) 50 mcg/mL injection solution (0.5 mL)] Route: ml6 IVP; Site: right forearm; 08:00 Drug: Ondansetron 8 mg [ondansetron HCl 2 mg/mL intravenous solution (3.75 mL)] Route: ml6 IVP; Site: right forearm; 08:17 Drug: Sodium Bicarbonate 1 amp Route: IVP; Site: right forearm; ml6 Signatures: Dispatcher [employer] EDMS Jenny Paul MD MD sd1 Sanjuanita Wilcox RN RN Star Lopez RN RN Jignesh Landrum, Reg Reg lg Dejon Larry RN RN ml6 Sosa Lombardi, COCOA MILL OPERATOR COCOA MILL OPERATOR ar3 Ivette Freire DO DO jo4 Jelly Castillo klkianna Hardin RN [id number] The chart was reviewed and I authenticate all verbal orders and agree with the evaluation and treatment provided.Corrections: (The following items were deleted from the chart) 08:02 07:47 MAGNESIUM LEVEL+LAB ordered. EDMS EDMS 08:02 07:47 PHOSPHOROUS LEVEL+LAB ordered. EDMS EDMS Attachments: 08:53 [facility] Payment Agreement lg 18:17 T-Sheet-- Draft Copy klr Chart Complete MTDD
[2016-06-28] MEDS ORDERED: BICI30EL PO (11:13)
--- NOTE | 2016-06-28 13:08 | IPN ---
DATE OF SERVICE: 06/28/2016 SUBJECTIVE: The patient was seen and examined at the bedside today during hemodialysis procedure. He was tolerating the hemodialysis procedure well. There are no active complaints at this time. REVIEW OF SYSTEMS: The patient denies any fever, chills, rigors, headache, nausea, vomiting, chest pain, shortness of breath, pain abdomen, constipation. She reports that her ostomy output is improving, and her appetite is better at this time. The rest of review of systems is negative. OBJECTIVE: VITAL SIGNS: Temperature is 96.8 degrees Fahrenheit, blood pressure is 136/79, pulse is 78, respiratory rate of 17, saturating 98% on room air. INTAKE AND OUTPUT: Stool output recorded is 550 mL yesterday, 500 mL so far today since overnight. Weight in the bed scale is 54.1 kg. PHYSICAL EXAMINATION: GENERAL: The patient is awake, alert, oriented times three, lying in bed, in no apparent distress. HEAD AND NECK EXAMINATION: Extraocular muscles intact. Pupils equally round and reactive to light. Mucous membranes are moist. Neck is supple. There is no jugular venous distention (JVD). CARDIOVASCULAR: S1, S2, regular rate. No murmur, rub, and gallop. RESPIRATORY: Chest is clear to auscultation bilaterally. Bilateral equal air entry. ABDOMEN: Is soft, nontender. Positive bowel sounds. Right lower quadrant ileostomy with some stools in the bag. EXTREMITIES: No clubbing or cyanosis. No edema. CENTRAL NERVOUS SYSTEM (YARN SALVAGER): No focal neurological deficit. Power is 5/5 in all extremities. LABORATORY REVIEW: CBC showed a WBC 5.1, hemoglobin 11.6, platelets are 226. BMP showed sodium 141, potassium 5.2, chloride 108, bicarbonate 21, BUN 42, creatinine 9.1, phosphorus is 7.6, albumin is 3.1. CURRENT MEDICATIONS: The patient's current medications were all reviewed by me. There is no change in the medications today as compared with yesterday. ASSESSMENT: A 55-year-old female with past medical history of end-stage renal disease, on hemodialysis, with a right lower quadrant ileostomy admitted this time after missing hemodialysis with severe metabolic acidosis and hyperkalemia. PLAN: 1. Hyperkalemia. The patient's potassium is again 5.2 today. She is being dialyzed today against a 2K bath. She will be dialyzed for 3 hours, and her potassium would improve after hemodialysis session today. 2. End-stage renal disease, on hemodialysis. The patient's regular hemodialysis days are Tuesday, , Tuesday. Tomorrow is her regular dialysis day. She is being dialyzed today because of acidosis and hyperkalemia. The patient can be discharged after dialysis today, and she can get her regular hemodialysis as outpatient tomorrow. 3. Metabolic acidosis. The patient has got severe metabolic acidosis because of high output from the ileostomy. Her acidosis would correct with hemodialysis, but I am going to start the patient on Bicitra 15 mL by mouth twice a day until her ostomy is reversed to compensate for the bicarbonate loss in the ostomy. 4. High-output ileostomy. The patient was encouraged to drink plenty of liquids. We do not remove any fluid during hemodialysis. We keep her even. The patient is scheduled for ostomy reversal 5 weeks from now. 5. Hyperphosphatemia. Phosphorus is expected to improve after dialysis today. Continue Renvela 800 mg by mouth three times a day with meals. 6. Anemia in end-stage renal disease. The patient's hemoglobin is 11.6 at this time. No need of ENRRIQUE at this time. DISCHARGE PLANNING: It is okay to discharge the patient after hemodialysis today. She can get the regular hemodialysis tomorrow morning as outpatient. Plan of care was discussed with the hospitalist team, as well, Dr. Landers. ALBER
[2016-06-28] MEDS: BICITRA 30ML SOLN UDC PO SCH ×2 (13:49→13:54)
[2016-06-28] MEDS: ACETAMINOPHEN TAB 650MG DOSE (2X325MG) PO PRN (13:50)
[2016-06-28] MEDS: RIZATRIPTAN BENZOATE 10 MG TAB PO PRN (15:07)
--- NOTE | 2016-06-28 17:05 | DSES ---
DATE OF ADMISSION: 06/26/2016 DATE OF DISCHARGE: 06/28/2016 OUTPATIENT SOLID WASTE COLLECTOR: Dr. Rodríguez PRIMARY CARE PROVIDER: [facility]. ADMISSION/DISCHARGE DIAGNOSIS: 1. Severe hypertension and bradycardia secondary to hyperkalemia. 2. End stage renal disease on hemodialysis. 3. History of hypertension. 4. History of ischemic bowel status post ileostomy. 5. Migraine headaches. 6. Anxiety/depression. 7. Mitral valve prolapse. 8. Insomnia. HOSPITALIZATION COURSE: Patient is a 55-year-old female presented to [facility] by ambulance for severe bradycardia and severe hypotension. Patient was found to have altered mental status at home. On EMS ride patient was found to have heart rate close to 30 to 40, systolic blood pressure was around 90s and diastolic blood pressure was unpalpable. Patient was immediately transferred to [facility]. Urgent medical management was given however patient still experienced significant bradycardia. External pacer had to be applied to the patient. Dr. Rodríguez was contacted. Patient has a history of frequent noncompliance with hemodialysis scheduled. Patient presented with a similar symptoms and urgent laboratory was drawn and dialysis team was called for preparation of possible urgent dialysis. Later patient's potassium came back positive at 8.6. Patient was admitted immediately from emergency room to ICU and hemodialysis was started immediately. Due to the critical condition of the patient and the patient's mental state at the time of encounter, also information was obtained from the patient's . With urgent hemodialysis, patient's mentation showed gradual improvement and patient's medications listed being actively adjusted. On the second day of admission, patient started to show some sign of hyperkalemia, Kayexalate was attempted; however patient continued to have elevated potassium level, then on 06/28/2016 patient had repeated hemodialysis session. At the hemodialysis patient being examined and eventually determined stable for discharge with recommendation to follow with outpatient hemodialysis center on 06/29/2016 which is one day after discharge to resume regular hemodialysis. OBJECTIVE: Vital signs: Temperature 96.8, pulse 78, respiratory rate 17, blood pressure 136/79, pulse 98% on room air. LABORATORY DATA: WBC 5.1, hemoglobin 11.6, hematocrit 36.3, platelet count 226. Sodium 141, potassium 5.2 (on the day of admission patient had potassium of 8.6), chloride 1-08, carbon dioxide 21, BUN 42, creatinine 9.14, Glomerular filtration rate (GFR) is 4.7. Fasting glucose is 88, calcium 9.3, phosphorous 7.6, albumin 3.1. MICROBIOLOGY: Methicillin-resistant Staphylococcus aureus (MRSA) screening pending. IMAGING: Chest x-ray shows hyperinflation. No infiltrates seen. DISCHARGE MEDICATIONS: - citric acid/sodium citrate 334/500 10 mL by mouth twice a day for 5 weeks supply. Discontinue after patient has reversal of her ileostomy - Tylenol 650 mg by mouth every 6 hours as needed - Ventolin two puff inhalation four times a day as needed for shortness of breath - amlodipine 5 mg by mouth daily - bupropion 150 mg by mouth twice a day - vitamin D3 2000 units by mouth daily - clonazepam 1 mg by mouth four times a day - Lomotil one tablet by mouth four times a day as needed for diarrhea - Estradiol 1 mg by mouth daily - Imodium 2 mg by mouth every 4 hours as needed - Reglan 5 mg by mouth twice a day - ondansetron 4 mg by mouth every 6 hours as needed for nausea - promethazine 25 mg by mouth every 6 hours as needed for nausea - propranolol 120 mg by mouth daily - Protonix 40 mg by mouth daily - Rizatriptan 10 mg by mouth as needed for migraines - sertraline 200 mg by mouth daily - Ambien 10 mg by mouth at night as needed for insomnia DISCHARGE INSTRUCTIONS: 1. Discontinue line. 2. Activity as tolerated. 3. Low salt diet as tolerated. 4. Patient should follow with outpatient hemodialysis center tomorrow to resume her regular hemodialysis. Patient continued to be reminded for not skipping the hemodialysis. Patient has multiple rehospitalizations secondary to severe hyperkalemia and related events. Patient had appointment with surgical team in [place] for possible ileostomy revision. DISCHARGE CONDITION: Stable. DISCHARGE TIME: Greater than 30 minutes.
== END 2016-06-28 15:14 | disposition home or self-care (01) | DRG 425 ==
LOC: M ED 07:31 → M MSPAV 08:22 → M ED INP 08:23 → M ICU 08:55 → M MSPAV 06-27 11:39
PROVIDERS: ADMIT Internal Medicine; ATTEND Internal Medicine
DX: E87.5 Hyperkalemia (principal); N18.6 End stage renal disease; I12.0 Hypertensive chronic kidney disease with stage 5 chronic kidney disease or end stage renal disease; I95.9 Hypotension, unspecified; E87.2 Acidosis; G47.00 Insomnia, unspecified; F41.9 Anxiety disorder, unspecified; F32.9 Major depressive disorder, single episode, unspecified; I34.0 Nonrheumatic mitral (valve) insufficiency; G43.909 Migraine, unspecified, not intractable, without status migrainosus; R00.1 Bradycardia, unspecified; Z91.19 Patient's noncompliance with other medical treatment and regimen; Z79.899 Other long term (current) drug therapy; D63.1 Anemia in chronic kidney disease

== ENCOUNTER 2016-09-13 23:09 | Observation (INO) | payer BC, MEDICARE ==
[~2016-09-13] VITALS: Ht 172.7 cm; Wt 57.9 kg
[~2016-09-13 23:09] MED LIST changes: +BICI30EL PO; +KION15SU PO; +LOMO2.5T PO; -SERT-141 PEG; -SERT-141 PO; +SERT50TA PEG; +SERT50TA PO; +VITA200038 PO
[2016-09-14 01:23] LABS: VENOUS BASE EXCESS -6.7 (-2.0-2.0); VENOUS O2 SATURATION 93.6 % (60.0-80.0); VENOUS PARTIAL PRESSURE CO2 35.9 mmHg (38.0-50.0); VENOUS PARTIAL PRESSURE O2 74.1 mmHg (30.0-50.0); VENOUS STANDARD HCO3 18.9 MEQ/L; VENOUS TOTAL CO2 19.6 MEQ/L (24.0-28.0)
[2016-09-14 01:45] LABS: BASO # 0.1 K/mm3 (0.0-0.2); BASO % 0.9 % (0.0-1.0); EOS # 0.4 K/mm3 (0.0-0.50); EOS % 4.8 % (0.0-3.0); LARGE UNSTAINED CELL # 0.2 K/mm3 (0.0-0.4); LYMPH # 1.5 K/mm3 (1.5-4.5); LYMPH % 18.8 % (24.0-44.0); MEAN CORPUSCULAR HEMOGLOBIN 33.9 pg (27.0-33.0); MEAN CORPUSCULAR HGB CONC 31.4 g/dl (32.0-36.5); MEAN CORPUSCULAR VOLUME 107.8 fl (80.0-96.0); MONO # 0.5 K/mm3 (0.0-0.8); MONO % 6.9 % (0.0-5.0); NEUTROPHILS # 4.9 K/mm3 (1.8-7.7); NEUTROPHILS % 66.5 % (36.0-66.0); PLATELET COUNT, AUTOMATED 284 k/mm3 (150-450); RED CELL DISTRIBUTION WIDTH 14.4 % (11.5-14.5); WHITE BLOOD COUNT 7.4 K/mm3 (4.0-10.0)
[2016-09-14 01:46] LABS: ADD MORPHOLOGY? YES
[2016-09-14 01:48] LABS: ANION GAP 10 MEQ/L (8-16); BLOOD UREA NITROGEN 41 MG/DL (7-18); CARBON DIOXIDE LEVEL 23 MEQ/L (21-32); CHLORIDE LEVEL 103 MEQ/L (98-107); CREATININE FOR GFR 6.55 MG/DL (0.55-1.02); GLUCOSE, FASTING 83 MG/DL (70-105); SODIUM LEVEL 136 MEQ/L (136-145)
[2016-09-14 02:15] LABS: POTASSIUM SERUM 6.5 MEQ/L (3.5-5.1)
[2016-09-14 02:19] LABS: HYPOCHROMASIA 1+
--- NOTE | 2016-09-14 03:01 | REP ---
Clinical: Dyspnea. Cough. Comparison: 06/26/2016. Findings: Visualized portions of the mediastinum and cardiac silhouette are normal / stable. Double-lumen dialysis catheter again identified with tip in right atrium. Pulmonary interstitial edema along with right lower lobe consolidation and bilateral pleural effusions (right greater than left) identified. No pneumothorax. Skeletal structures stable. Impression: Findings suggesting interstitial edema and pulmonary vascular congestion along with right lower lobe consolidation and bilateral pleural effusions (right greater than left). Signed by Eliezer Whittaker MD 09/14/2016 02:53 A
[2016-09-14] MEDS ORDERED: SOD POLYSTYRENE SULFONATE SUSP 15 GM/60 ML UD PO ONE (03:15)
[2016-09-14] MEDS ORDERED: DEXTROSE 50% 50 ML SYRINGE IV ONE (04:00)
[2016-09-14] MEDS ORDERED: HumuLIN R (REGULAR) INSULIN (NovoLIN R) **100U/ML** PER UNIT IV ONE (04:00)
[2016-09-14] MEDS ORDERED: ACET500T37 PO (04:21)
--- NOTE | 2016-09-14 04:33 | HPEPDOC ---
General Date of Admission 09/14/16 Other Providers PCP: MACHELLE Francois in the [facility] Signal Operator Technical: Dr. Rodríguez Attending Physician: DONNA DRAPER DO Chief Complaint The patient is a 55-year-old female admitted with a reason for visit of Shortness Of Breath. Source: Patient Exam Limitations: No limitations History of Present Illness 55-year-old female with past medical history of hypertension, mitral valve prolapse, anxiety/depression, migraines, ischemic bowel status post ileostomy and J-tube placement, GERD, dyslipidemia, chronic anemia, end-stage renal disease on hemodialysis, on Tuesdays, , and Saturdays presents to the ER with a chief complaint of progressively worsening shortness of breath over the last 3 days. The patient states that since her dialysis session on Tuesday her shortness of breath has been steadily getting worse. She reports that she has been unable to lay flat, and notes that when laying flat she could hear rattling sounds while breathing. Of note, the patient does state that she has had an increase in salt intake over the weekend. She notes that over the last few days she has had potato chips, chicken wings, and a few bites of pizza. She denies any complaints of fevers, chills, chest pain, lightheadedness, dizziness , abdominal pain, or any vomiting/diarrhea. In the ER, the patient's laboratory findings were significant for hyperkalemia with a serum potassium noted to be 6.5. In addition, the patient was noted to be in a fluid overloaded state requiring 2 L of oxygen via nasal cannula. The patient will be admitted under the hospitalist service for dialysis later this morning. Home Medications Scheduled (Protonix) 40 Mg Nikolas 40 MG PO DAILY (Reported) Amlodipine Besylate (Amlodipine Besylate) 5 Mg Tab 5 MG PO DAILY (Reported) Bupropion Hcl (Bupropion HCl Sr) 150 Mg Tab 150 MG PO BID (Reported) Cholecalciferol (Vitamin D-3) 2,000 Unit Tab 2,000 UNIT PO DAILY (Reported) Estradiol (Estradiol) 1 Mg Tab 1 MG PO DAILY (Reported) Propranolol HCl (Inderal LA) 120 Mg Capcr 120 MG PO DAILY (Reported) Sertraline HCl (Sertraline HCl) 100 Mg Tab 200 MG PO DAILY (Reported) Scheduled PRN Acetaminophen (Acetaminophen Extra Stren) 500 Mg Tab 1,000 MG PO Q6H PRN PRN PAIN (Reported) Clonazepam (Clonazepam) 1 Mg Tab 1 MG PO QID PRN PRN ANXIETY (Reported) Diphenoxylate/Atropine (Lomotil 2.5-0.025 mg) 1 Tab Tab 1 TAB PO QID PRN PRN DIARRHEA (Reported) Loperamide Hcl (Imodium A-D) 2 Mg Tab 2 MG PO Q4H PRN PRN DIARRHEA (Reported) Ondansetron HCl (Ondansetron HCl) 4 Mg Tab 4 MG PO Q6H PRN PRN NAUSEA (Reported ) Promethazine HCl (Promethazine HCl) 25 Mg Tab 25 MG PO Q6H PRN PRN NAUSEA ( Reported) Rizatriptan Benzoate (Rizatriptan Benzoate) 10 Mg Tab 10 MG PO PRN MIGRAINE ( Reported) Sodium Polystyrene Sulfonate (Kionex) 15 Gm/60 Ml Inessa 15 GM PO ASDIRECTED PRN PRN HIGH POTASSIUM (Reported) Zolpidem Tartrate (Ambien) 10 Mg Tab 20 MG PO QHS PRN PRN SLEEP (Reported) Allergies Coded Allergies: No Known Allergies (Unverified , 09/13/16) Past Medical History Medical History As noted in HPI. Surgical History 1. Colectomy and ileostomy for ischemic bowel. 2. Gastrojejunostomy tube placement. 3. Dialysis access. 4. Appendectomy. 5. Dilation and curettage. Family History Significant Family History: No pertinent family hx Social History * Smoker: Denies Alcohol: Denies Drugs: denies Patient lives at home with her and 2 daughters. Review of Symptoms Other systems 10 point review of systems negative unless otherwise specified in the HPI. Physical Examination General Exam: Positive: Alert, Cooperative, No Acute Distress ENT Exam: Positive: Atraumatic, Mucous membr. moist/pink Neck Exam: Positive: JVD Chest Exam: Positive: Diminished, Rales, Negative: Wheezing (bibasilar rales noted on auscultation) Heart Exam: Positive: Normal S1, Normal S2, Rate Normal Telemetry: Positive: Sinus Abdomen Exam: Positive: Soft, Negative: Tenderness Extremity Exam: Positive: Swelling (2+ pitting edema in the lower extremities bilaterally), Negative: Tenderness Psych Exam: Positive: Oriented x 3 Vital Signs Vital Signs Date Time Temp Pulse Resp B/P Pulse Ox O2 Delivery O2 Flow Rate FiO2 09/13/16 23:10 96.8 61 18 166/91 94 Room Air Laboratory Data Labs 24H Laboratory Tests 2 09/14/16 01:15: Anion Gap 10, B-Type Natriuretic Peptide 4170H, White Blood Count 7.4, Red Blood Count 2.73L, Hemoglobin 9.2L, Hematocrit 29.4L, Mean Corpuscular Volume 107.8H, Mean Corpuscular Hemoglobin 33.9H, Mean Corpuscular Hemoglobin Concent 31.4L, Red Cell Distribution Width 14.4, Platelet Count 284, Neutrophils (%) ( Auto) 66.5H, Lymphocytes (%) (Auto) 18.8L, Monocytes (%) (Auto) 6.9H, Eosinophils (%) (Auto) 4.8H, Basophils (%) (Auto) 0.9, Neutrophils # (Auto) 4.9 , Lymphocytes # (Auto) 1.5, Monocytes # (Auto) 0.5, Eosinophils # (Auto) 0.4, Basophils # (Auto) 0.1, Blood Gas Bicarbonate Standard 18.9, Blood Urea Nitrogen 41H, Creatinine 6.55H, Sodium Level 136, Potassium Level 6.5*H, Chloride Level 103, Carbon Dioxide Level 23, Calcium Level 9.0, Total Creatine Kinase 27, Creatine Kinase MB 2.2, Creatine Kinase MB Relative Index 8.14H, Glomerular Filtration Rate 7.0L, Hypochromasia 1+, Large Unclassified Cells # 0.2, Large Unclassified Cells % 2.0, Macrocytosis 3+, Platelet Estimate NORMAL, Troponin I < 0.02, Venous Blood Base Excess -6.7L, Venous Blood pH 7.331, Venous Blood Partial Pressure CO2 35.9L, Venous Blood Partial Pressure O2 74.1H , Venous Blood Total Carbon Dioxide 19.6L, Venous Blood HCO3 18.5L, Venous Blood Oxygen Saturation 93.6H CBC/BMP Laboratory Tests 09/14/16 01:15 Calcium Level 9.0, Total Creatine Kinase 27, Red Blood Count 2.73 L, Mean Corpuscular Volume 107.8 H, Mean Corpuscular Hemoglobin 33.9 H, Mean Corpuscular Hemoglobin Concent 31.4 L, Red Cell Distribution Width 14.4, Neutrophils (%) (Auto) 66.5 H, Lymphocytes (%) (Auto) 18.8 L, Monocytes (%) ( Auto) 6.9 H, Eosinophils (%) (Auto) 4.8 H, Basophils (%) (Auto) 0.9, Neutrophils # (Auto) 4.9, Lymphocytes # (Auto) 1.5, Monocytes # (Auto) 0.5, Eosinophils # (Auto) 0.4, Basophils # (Auto) 0.1 Plan / VTE VTE Prophylaxis Ordered?: Yes Plan Plan Decompensated congestive heart failure 2/2 underlying end-stage renal disease on hemodialysis, dietary indiscretion Chest x-ray notable for bilateral pleural effusions The patient is currently resting comfortably on 2 L of oxygen via nasal cannula while sitting in upright position Nephrology will be consulted to schedule dialysis this morning Hyperkalemia 2/2 underlying ESRD Serum potassium noted to be 6.5 in the ER EKG with no acute ST changes Patient has been given a dose of Kayexalate and dextrose plus insulin in the ER We will continue to monitor the patient on telemetry Migraine headaches Continue Maxalt 10 mg BID as needed Anxiety/depression Continue Zoloft and Klonopin prn and bupropion. Hypertension, stable Continue Norvasc GERD Continue Protonix History of mitral valve prolapse. Continue propranolol History of ischemic bowel, status post ileostomy Deep vein thrombosis (DVT) prophylaxis Heparin subcutaneously The patient will be admitted under the service of Dr. Draper, who will will begin to follow the patient on 09/14/16 at 7 AM. CORRY DSOUZA MD Sep 14, 2016 04:33
[2016-09-14] MEDS ORDERED: ACETAMINOPHEN 500 MG TAB PO PRN (04:45)
[2016-09-14] MEDS ORDERED: zolPIDEM TARTRATE 10MG TAB PO PRN (04:45)
[2016-09-14] MEDS ORDERED: PROMETHAZINE 25 MG TAB PO PRN (04:45)
[2016-09-14] MEDS ORDERED: RIZATRIPTAN BENZOATE 10 MG TAB PO PRN (04:45)
[2016-09-14] MEDS: clonazePAM 1 MG TAB PO PRN ×2 (05:28→12:56)
[2016-09-14 07:41] LABS: BASO % 0.6 % (0.0-1.0); EOS # 0.3 K/mm3 (0.0-0.50); LARGE UNSTAINED CELL # 0.1 K/mm3 (0.0-0.4); LARGE UNSTAINED CELL % 1.6 % (0.0-4.0); LYMPH # 1.3 K/mm3 (1.5-4.5); LYMPH % 17.5 % (24.0-44.0); MEAN CORPUSCULAR HEMOGLOBIN 33.2 pg (27.0-33.0); MEAN CORPUSCULAR HGB CONC 30.8 g/dl (32.0-36.5); MEAN CORPUSCULAR VOLUME 107.8 fl (80.0-96.0); MONO # 0.4 K/mm3 (0.0-0.8); MONO % 6.5 % (0.0-5.0); NEUTROPHILS # 4.6 K/mm3 (1.8-7.7); NEUTROPHILS % 69.9 % (36.0-66.0); PLATELET COUNT, AUTOMATED 259 k/mm3 (150-450); RED CELL DISTRIBUTION WIDTH 14.5 % (11.5-14.5); WHITE BLOOD COUNT 6.6 K/mm3 (4.0-10.0)
[2016-09-14 07:50] LABS: ADD MORPHOLOGY? YES
[2016-09-14 07:57] LABS: ALBUMIN 2.5 GM/DL (3.2-5.2); CALCIUM LEVEL 8.7 MG/DL (8.5-10.1); CREATININE FOR GFR 6.89 MG/DL (0.55-1.02); GLOMERULAR FILTRATION RATE 6.6 (>51); MAGNESIUM LEVEL 1.9 MG/DL (1.8-2.4); PHOSPHORUS LEVEL 4.5 MG/DL (2.5-4.9)
[2016-09-14 08:00] VITALS: BP 122/85
[2016-09-14 08:33] LABS: HYPOCHROMASIA 1+
[2016-09-14] MEDS: HEPARIN SOD (PORCINE) 5000 UNITS/ML VIAL SC SCH ×2 (09:00→20:33)
--- NOTE | 2016-09-14 09:24 | ECGEPIP ---
Stationary ECG Study [facility] - ED Test Date: 2016-09-14 Pat Name: GREY ORELLANA Department: Room: [place] [address] Gender: F Office Engineer: ChiB: 1960 Requested By: KELLY Avilez Order Number: [id number] Reading MD: Orlando Tavarez Measurements Intervals [place] Rate: 62 P: 38 MT: 160 QRS: 43 QRSD: 113 T: 50 QT: 437 QTc: 447 Interpretive Statements SINUS RHYTHM POSSIBLE LEFT ATRIAL ENLARGEMENT INC. LBBB COMPARED TO 06/26/16, QRS NARROWED AND T WAVES NORMALIZED Electronically Signed On 09-14-2016 9:24:08 EDT by Orlando Tavarez
[2016-09-14] MEDS ORDERED: HEPARIN 1,000 UNITS/ML 10ML VIAL (FOR RADIOLOGY& DIALYSIS ONLY) IV ONE (11:00)
[2016-09-14 12:00] VITALS: BP 177/81
[2016-09-14] MEDS: GABAPENTIN 300 MG CAP PO SCH (12:55)
[2016-09-14] MEDS: ESTRADIOL 1 MG TAB PO SCH (12:56)
[2016-09-14] MEDS: buPROPion **SR TABLET** (ZYBAN) 150MG PO SCH ×2 (12:56→20:32)
[2016-09-14] MEDS: PROPRANOLOL 60 MG LA CAP PO SCH (12:57)
[2016-09-14] MEDS: VITAMIN D 1,000 INTERNATIONAL UNITS TABLET PO SCH (12:57)
[2016-09-14] MEDS: amLODIPine 5 MG TAB PO SCH (12:58)
[2016-09-14] MEDS: PANTOPRAZOLE 40MG TAB (PROTONIX) PO SCH (12:58)
[2016-09-14] MEDS: LOPERAMIDE 2 MG CAP PO PRN ×2 (12:58→20:33)
[2016-09-14] MEDS: SERTRALINE 100 MG TAB PO SCH (12:58)
[2016-09-14 15:50] VITALS: BP_SYST 160; BP_SYST 173; BP_DIAS 80; BP_DIAS 82
--- NOTE | 2016-09-14 15:50 | IPN ---
DATE: 09/14/2016 SUBJECTIVE: The patient is seen and examined in the room today. The patient stated she still complained about difficulty breathing. She cannot lay flat for the past few days. The patient states she never misses her dialysis. However, the patient is not very compliant with dietary recommendations. The patient has scheduled dialysis in the morning. There is no abnormal events detected on telemetry. OBJECTIVE: VITAL SIGNS: Temperature 97.1, pulse is 68, respirations 22, blood pressure is 122/85, pulse oximetry is 91% with three liters nasal cannula. GENERAL: No sign of acute distress, alert and oriented times three. HEENT: Normocephalic, atraumatic. Extraocular motor grossly intact. CARDIOVASCULAR: Positive S1, S2, regular rate. Sinus rhythm on telemetry. LUNGS: Positive bilateral crackles. No wheezes. ABDOMEN: Soft, nontender, nondistended. Bowel sounds present. EXTREMITIES: Positive edema bilaterally. No sign of cyanosis. LABORATORY DATA: WBC is 6.6, hemoglobin 8.7, hematocrit 28.4, platelet count is 259. Sodium is 135, potassium 6, chloride is 105, carbon dioxide 19, BUN 42, creatinine is 6.89, GFR is 6.6, fasting glucose 83, calcium 8.7, phosphorus 4.5, magnesium 1.9, albumin 2.5. ASSESSMENT AND PLAN: 1. Decompensated congestive heart failure. 2. End-stage renal disease, on hemodialysis. 3. Bilateral pleural effusions, secondary to decompensated congestive heart failure. 4. Hyperkalemia. 5. History of migraine headaches. 6. Anxiety and depression. 7. Hypertension. 8. Gastroesophageal reflux disease. 9. History of mitral valve prolapse. 10. History of ischemic bowel, status post ileostomy. 11. Deep vein thrombosis (DVT) prophylaxis, on heparin. PLAN: Nephrology has been consulted. The patient will have scheduled inpatient hemodialysis in the morning. We will continue to follow the patient's renal function and also respiratory status. With respect to the patient's hyperkalemia and fluid overload issue, this will improve with hemodialysis. Continue with Norvasc for hypertension and propranolol. Continue with Zoloft and bupropion for anxiety and depression. The patient also has as-needed Klonopin. The patient is on Protonix for gastroesophageal reflux disease (GERD). The patient is on heparin for deep vein thrombosis (DVT) prophylaxis. The patient's symptoms are improving and there are no events on telemetry. The patient does not require a monitored bed. The patient will be transferred to the medical/surgical floor.
--- NOTE | 2016-09-14 21:35 | IPN ---
DATE: 09/14/2016 Ms. Haider is seen during hemodialysis this morning. She is admitted through the night due to shortness of breath and was noticed to have hyperkalemia. The patient has history of end-stage renal disease and has been dialysis dependent. Her last dialysis was performed on Tuesday. Chest x-ray showed evidence for volume overload and the patient was also short of breath. Our plan is to remove about 3 liters of fluid with hemodialysis today. PHYSICAL EXAMINATION: Temperature 97 degrees Fahrenheit, heart rate 68 per minute and respiratory rate 22 per minute. Blood pressure 122/85 mmHg and oxygen saturation 91%. Head is atraumatic. Neck veins are moderately distended. She has no oral thrush or ulcers. Pupils are equal and reactive to light and sclerae is anicteric. Heart sounds are regular and lungs with bibasilar rales. Abdomen soft and nontender. Extremities without any cyanosis or clubbing. Skin without any rash or ulcers. Neurologically she is awake, alert and oriented times three. Her labs show sodium level 136 and potassium 6.5. BUN 41 and creatinine 6.55. Troponin was less than 0.02 and a BNP level 4170. Hemoglobin 9.2 and hematocrit 29.4. PROBLEMS: 1. Hyperkalemia, most likely this is related to dietary noncompliance. The patient will be dialyzed with 1.0 mEq potassium bath. This will correct her hyperkalemia and electrolytes will be repeated again tomorrow. 2. Shortness of breath. This is mostly related to volume overload. The patient has been noncompliant with fluid restriction. We will remove 3 liters of fluid and see how she tolerates. We will reevaluate her tomorrow for further volume removal if indicated. 3. End-stage renal disease. Today is her regular dialysis day. The patient is being dialyzed for 3-1/2 hours. 4. Anemia. Anemia is chronic due to end-stage renal disease. We will check her iron studies and give her a dose of Aranesp. At present there is no indication for transfusion.
--- NOTE | 2016-09-14 21:48 | CR ---
DATE OF CONSULTATION: 09/14/2016 CONSULTATION REPORT FOR: Dr. Landers REASON FOR CONSULTATION: Shortness of breath and hyperkalemia in this lady with end-stage renal disease. HISTORY OF PRESENT ILLNESS: Mrs. Haider is a 55-year-old female with known history of hypertension, end-stage renal disease, severe anxiety and depression, migraine headaches, ischemic bowel disease status post ileostomy and recent reversal of ileostomy, history of gastroesophageal reflux disease and anemia. She has been dialysis dependent since her illness with severe sepsis when she developed ischemic bowel and required multiple surgeries. She recently underwent reversal of her ileostomy and has been somewhat noncompliant with her dietary restrictions. She is dialysis dependent and is regularly dialyzed on Tuesday, and Tuesday schedule. She was last dialyzed on Tuesday. She presented to the emergency room through the night with shortness of breath. She reports that she was short of breath even on Tuesday at home. However, she never called dialysis unit. In the emergency room her chest x-ray showed pulmonary vascular congestion and lab work showed hyperkalemia. I was called event specialist product demonstrator for a nephrology consultation and the patient is seen this morning. PAST MEDICAL HISTORY: Significant for: 1. History of hypertension. 2. Mitral valve prolapse. 3. Anxiety and depression. 4. Migraine headaches. 5. History of severe sepsis, status post bowel resection due to ischemic bowel and ileostomy and J-tube placement. 6. Recent reversal of ileostomy. 7. History of gastroesophageal reflux disease. 8. Dyslipidemia. 9. History of end-stage renal disease. 10. History of anemia of chronic kidney disease. MEDICATIONS: Her home medications include: - amlodipine 5 mg daily - bupropion 150 mg twice a day - vitamin D 2000 units - estradiol 1 mg daily - propranolol 120 mg daily - sertraline 100 mg daily She also takes Imodium, Zofran, Ambien and clonazepam as needed. ALLERGIES: The patient has no known drug allergies. PAST SURGICAL HISTORY: Significant for: 1. History of bowel resection with ileostomy due to ischemic bowel. 2. Gastrojejunostomy tube placement. 3. Recent reversal of her ileostomy. 4. Appendectomy. 5. Dilatation and curettage (D C). 6. Dialysis access creation. PERSONAL AND SOCIAL HISTORY: The patient does not smoke or drink. She does not use any recreational drugs. FAMILY HISTORY: Negative for end-stage renal disease. REVIEW OF SYSTEMS: The patient denies any fever or chills. Head and neck is unremarkable. She denies any nosebleeds or sinus problems. Cardiovascular system is significant for shortness of breath. She denies any chest pain. Respiratory system is negative for hemoptysis or pleuritic type of chest pain. She does have mild cough. Gastrointestinal (GI) system is negative for vomiting or diarrhea. She does have some chronic GI problems related to her ischemic bowel and multiple surgeries. Genitourinary () system is negative for dysuria or hematuria. Endocrine system is negative for diabetes or thyroid problems. Hematological system is significant for anemia of chronic disease. Psychosocial system is significant for depression and anxiety. Neurological system negative for seizures. She does get migraine headaches. Skin is negative for rash or ulcers. Musculoskeletal system is negative for significant leg edema. PHYSICAL EXAMINATION: The patient is awake and alert at the time of my visit. Temperature is 97 degrees Fahrenheit, heart rate 68 per minute and respiratory rate 22 per minute. Blood pressure 122/85 mmHg and oxygen saturation 90%. Head is atraumatic. Pupils are equal and reactive to light and sclerae is anicteric. Ears, nose and throat are unremarkable. Neck is supple and there is no thyroid enlargement. Trachea is midline. Neck veins are distended about 7 cm above sternal angle. Heart sounds are regular. There is no pericardial friction rub. Lungs have bibasilar rales. There is no wheezing. Abdomen is soft and bowel sounds are normal. There is no palpable organomegaly. Extremities have no cyanosis or clubbing. Skin has no rash or ulcers. Neurologically she is awake, alert and oriented times three. LABORATORY DATA: Sodium 136 and potassium 6.5. CO2 23, BUN 41 and creatinine 6.55. Calcium level 9.0. Total CK 27 and troponin less than 0.02. A BNP level is 4170. WBC count 7.4, hemoglobin 9.2 and hematocrit 29.4. Platelets 284. Blood gas showed a pH of 7.33, pCO2 35.9 and pO2 74. Chest x-ray done in the emergency room showed interstitial edema and pulmonary vascular congestion with bilateral pleural effusions. Chest x-ray was reviewed independently. PROBLEMS: 1. Shortness of breath. The patient is volume overloaded. This is mostly related to noncompliance with fluid restriction. She previously had missed dialysis treatment. However, she was last dialyzed on Tuesday. The patient is being dialyzed this morning and we are attempting to remove 3 liters of fluid. This will help to correct her volume status. She will be reevaluated tomorrow for further dialysis need. 2. Hyperkalemia, again this is related to dietary noncompliance. 1.0 mEq potassium bath is being used for dialysis today. Her electrolytes will be checked again tomorrow morning. 3. End-stage renal disease. The patient has been dialysis dependent. Today is her regular dialysis day. She will be dialyzed for full treatment for 3-1/2 hours. 4. Hypertension. Today her blood pressure seems reasonably well-controlled. She has been on beta magno mostly for migraine headaches and hypertension which should be continued. We can also adjust her medications if needed after dialysis. 5. Anxiety and depression. This is a chronic issue and all her chronic medications should be continued. I thank you for involving me in the care of Mrs. Haider. I will follow her along with you.
[2016-09-14 22:00] VITALS: BP 153/90
[2016-09-15 06:00] VITALS: BP 160/99
[2016-09-15 06:18] LABS: BASO % 0.8 % (0.0-1.0); EOS # 0.2 K/mm3 (0.0-0.50); EOS % 4.6 % (0.0-3.0); LARGE UNSTAINED CELL # 0.1 K/mm3 (0.0-0.4); LARGE UNSTAINED CELL % 1.8 % (0.0-4.0); LYMPH % 23.4 % (24.0-44.0); MEAN CORPUSCULAR HEMOGLOBIN 33.1 pg (27.0-33.0); MEAN CORPUSCULAR HGB CONC 30.9 g/dl (32.0-36.5); MEAN CORPUSCULAR VOLUME 107.4 fl (80.0-96.0); MONO # 0.4 K/mm3 (0.0-0.8); MONO % 9.1 % (0.0-5.0); NEUTROPHILS # 2.5 K/mm3 (1.8-7.7); NEUTROPHILS % 60.3 % (36.0-66.0); PLATELET COUNT, AUTOMATED 229 k/mm3 (150-450); RED CELL DISTRIBUTION WIDTH 14.7 % (11.5-14.5); WHITE BLOOD COUNT 4.1 K/mm3 (4.0-10.0)
[2016-09-15 06:19] LABS: ALBUMIN 2.3 GM/DL (3.2-5.2); CALCIUM LEVEL 8.4 MG/DL (8.5-10.1); CREATININE FOR GFR 5.23 MG/DL (0.55-1.02); PHOSPHORUS LEVEL 4.2 MG/DL (2.5-4.9)
[2016-09-15 06:23] LABS: PERCENT SATURATION 62.5 % (13.2-37.4)
[2016-09-15 06:39] LABS: POTASSIUM SERUM 4.5 MEQ/L (3.5-5.1)
[2016-09-15] MEDS: buPROPion **SR TABLET** (ZYBAN) 150MG PO SCH (09:30)
[2016-09-15] MEDS: ESTRADIOL 1 MG TAB PO SCH (09:30)
[2016-09-15] MEDS: SERTRALINE 100 MG TAB PO SCH (09:31)
[2016-09-15] MEDS: PROPRANOLOL 60 MG LA CAP PO SCH (09:31)
[2016-09-15 09:32] VITALS: BP 148/76
[2016-09-15] MEDS: amLODIPine 5 MG TAB PO SCH (09:32)
[2016-09-15] MEDS: PANTOPRAZOLE 40MG TAB (PROTONIX) PO SCH (09:32)
[2016-09-15] MEDS: GABAPENTIN 300 MG CAP PO SCH (09:32)
[2016-09-15] MEDS: VITAMIN D 1,000 INTERNATIONAL UNITS TABLET PO SCH (09:32)
[2016-09-15] MEDS: HEPARIN SOD (PORCINE) 5000 UNITS/ML VIAL SC SCH (09:33)
[2016-09-15] MEDS: clonazePAM 1 MG TAB PO PRN (09:43)
--- NOTE | 2016-09-15 10:59 | IPN ---
DATE OF SERVICE: 09/15/2016 Mrs. Haider is seen this morning on her bedside. She was admitted early yesterday morning with shortness of breath and hyperkalemia. She underwent emergent hemodialysis yesterday, and 3 liters fluid was removed. She is feeling much better and reports that she slept well last night. She denies any dyspnea, chest pain, nausea, or vomiting. She has no fever or chills. On physical examination, temperature 98.9 degrees Fahrenheit, heart rate 72 per minute, and respiratory rate 15 per minute. Blood pressure 148/76 mmHg and oxygen saturation 94% on room air. Head: Is atraumatic. Ears, nose, and throat are unremarkable. Neck is supple and without jugular venous distention (JVD) or thyroid enlargement. Heart sounds are regular with a systolic murmur grade 2/6. There is no pericardial friction rub. Lungs: Sound clear to auscultation bilaterally. Abdomen: Soft and nontender and without a palpable organomegaly. Extremities: Have no cyanosis or clubbing. Skin has no rash or ulcers. Neurologically, she is awake, alert and oriented times three. Today's laboratories show WBC count 4.1, hemoglobin 8.7, and hematocrit 28.3. Platelets 229. Sodium 140 and potassium 4.5. BUN 28 and creatinine 5.23. Iron level is 85, saturation 62.5% and ferritin 669. PROBLEMS: 1. Shortness of breath. Most likely this was all just volume overload. I have discussed with the patient again about importance of restricting fluid intake. She has been somewhat noncompliant with her dietary restrictions. The patient understands to follow 1500 mL fluid restriction per day. We will adjust her dry weight in dialysis if needed. 2. Hyperkalemia. Potassium level has corrected with hemodialysis yesterday. The patient should follow a low-potassium diet at home. She will be dialyzed with 2.0 mEq potassium bath tomorrow as outpatient. 3. Hypertension. Blood pressure is reasonable, and current antihypertensive medications are appropriate, which should be continued. 4. Anemia. Her anemia is related to chronic kidney disease and stable at present. We will adjust the dose of her erythropoiesis-stimulating agent (ENRRIQUE) in outpatient dialysis clinic. DISPOSITION: From a renal standpoint, the patient can be discharged to home today and followup in outpatient dialysis clinic. She will be scheduled for next dialysis tomorrow.
[2016-09-15] MEDS: LOPERAMIDE 2 MG CAP PO PRN (13:47)
--- NOTE | 2016-09-15 14:39 | DSES ---
DATE OF ADMISSION: 09/14/2016 DATE OF DISCHARGE: 09/15/2016 PRIMARY CARE PROVIDER: MACHELLE Francois in [facility]. CONSULTANTS: Nephrology, Dr. Jacklyn Rodríguez PROCEDURES: None. COMPLICATIONS: None. ADMISSION/DISCHARGE DIAGNOSES: Decompensated congestive heart failure (CHF). End stage renal disease on hemodialysis. Bilateral pleural effusions secondary to decompensated congestive heart failure (CHF). Hyperkalemia. History of migraines headaches. Anxiety/depression. Hypertension. Gastroesophageal reflux disease (GERD). History of mitral valve prolapse. History of ischemic bowel status post ileostomy. HOSPITALIZATION COURSE: Patient is a 55-year-old female who presented to [facility] on September 14, 2016 for acute worsening of breathing. The patient was admitted for decompensated congestive heart failure (CHF) and nephrology was consulted for hemodialysis. The patient had hemodialysis performed on the day of admission and a significant amount of fluid was removed and the patient showed significant improvement of her respiratory status. The patient's breathing almost returned to baseline and September 15, 2016 the patient was determined stable for discharge with recommendation to followup with her primary care provider within one week and the patient was recommended to followup with outpatient hemodialysis on September 16, 2016 to resume her hemodialysis. Patient also instructed to be more compliant with dietary recommendations and the patient should follow a strict fluid restriction. OBJECTIVE: VITAL SIGNS: Temperature is 98.9, pulse is 65, respirations 15, blood pressure is 160/99, pulse oximetry 90% in room air. LABORATORY DATA: WBC is 4.1, hemoglobin 8.7, hematocrit 28.3, platelet count is 229. Sodium is 140, potassium 4.5, chloride is 104, carbon dioxide 27, BUN 28, creatinine 5.23, GFR is 9, fasting glucose 72, calcium is 8.4, phosphorous 4.2, magnesium 2, iron is 85, TIBC is 136, ferritin is 669, BNP on admission is 4170. Venous blood gas on admission showed pH of 7.33, pCO2 of 35.9, pO2 of 74.1, HCO3 of 18.5. IMAGING STUDIES: Chest x-ray on 09/14/2016 showed interstitial edema and pulmonary vascular congestion along with a right lower lobe consolidation and bilateral pleural effusion. DISCHARGE MEDICATIONS: - Tylenol 1000 mg by mouth every 6 hours as needed - amlodipine 5 mg by mouth daily - bupropion 150 mg by mouth twice a day - vitamin D3 2000 units by mouth daily - clonazepam 1 mg by mouth four times a day as needed for anxiety - Lomotil one tablet by mouth four times a day as needed - estradiol 1 mg by mouth daily - Imodium 2 mg by mouth every 4 hours as needed - odansetron 4 mg by mouth every 6 hours as needed - promethazine 25 mg by mouth every 6 hours as needed for nausea - propranolol 120 mg by mouth daily - Protonix 40 mg by mouth daily - rizatriptan 10 mg by mouth as needed for migraines headaches - sertraline 200 mg by mouth daily - Kionex 15 grams by mouth as needed for hyperkalemia - Ambien 20 mg by mouth at bedtime as needed for insomnia DISCHARGE INSTRUCTIONS: Discontinue lines. Discharge to home. Activity as tolerated. Renal diet as tolerated. Patient should followup with primary care provider at [facility] in one week. Patient should followup with outpatient hemodialysis on September 16, 2016 to resume her routine hemodialysis. Patient is instructed to follow strict dietary recommendations. Patient should follow the fluid restrictions. Recommend daily weight measurements. DISCHARGE CONDITION: Stable. Discharge time greater than 30 minutes.
== END 2016-09-15 17:22 | disposition home or self-care (01) ==
LOC: M ED 09-14 00:15 → M ED INP 09-14 03:50 → M ICU 09-14 07:50 → M MSPAV 09-14 15:55
PROVIDERS: ADMIT Internal Medicine; ATTEND Internal Medicine
DX: I50.9 Heart failure, unspecified (principal); N18.6 End stage renal disease; Z79.899 Other long term (current) drug therapy; D63.1 Anemia in chronic kidney disease; J91.8 Pleural effusion in other conditions classified elsewhere; E87.5 Hyperkalemia; F41.9 Anxiety disorder, unspecified; F32.9 Major depressive disorder, single episode, unspecified; I10 Essential (primary) hypertension; K21.9 Gastro-esophageal reflux disease without esophagitis; I34.8 Other nonrheumatic mitral valve disorders

== ENCOUNTER 2016-10-05 02:06 | Observation (INO) | payer BC, MEDICARE ==
[~2016-10-05] VITALS: Ht 167.6 cm; Wt 54.5 kg
[~2016-10-05 02:06] MED LIST changes: +ACET500T37 PO
[2016-10-05 03:12] LABS: BASO # 0.1 K/mm3 (0.0-0.2); BASO % 0.7 % (0.0-1.0); EOS # 0.2 K/mm3 (0.0-0.50); EOS % 1.8 % (0.0-3.0); LARGE UNSTAINED CELL # 0.1 K/mm3 (0.0-0.4); LARGE UNSTAINED CELL % 1.1 % (0.0-4.0); LYMPH # 0.8 K/mm3 (1.5-4.5); LYMPH % 7.7 % (24.0-44.0); MEAN CORPUSCULAR HEMOGLOBIN 34.3 pg (27.0-33.0); MEAN CORPUSCULAR HGB CONC 31.8 g/dl (32.0-36.5); MEAN CORPUSCULAR VOLUME 107.9 fl (80.0-96.0); MONO # 0.6 K/mm3 (0.0-0.8); MONO % 6.8 % (0.0-5.0); NEUTROPHILS # 7.6 K/mm3 (1.8-7.7); NEUTROPHILS % 81.9 % (36.0-66.0); PLATELET COUNT, AUTOMATED 270 k/mm3 (150-450); RED CELL DISTRIBUTION WIDTH 14.1 % (11.5-14.5); WHITE BLOOD COUNT 9.3 K/mm3 (4.0-10.0)
[2016-10-05] MEDS ORDERED: ISOVUE-370 76% 100ML VIAL (Q9967) As Ordered ONE (04:23)
[2016-10-05 04:46] LABS: ERYTHROCYTE SEDIMENTATION RATE 67 mm/hr (0-30)
[2016-10-05 04:54] LABS: ANION GAP 12 MEQ/L (8-16); BLOOD UREA NITROGEN 56 MG/DL (7-18); CALCIUM LEVEL 8.9 MG/DL (8.5-10.1); CARBON DIOXIDE LEVEL 22 MEQ/L (21-32); CHLORIDE LEVEL 100 MEQ/L (98-107); CREATININE FOR GFR 7.27 MG/DL (0.55-1.02); GLOMERULAR FILTRATION RATE 6.2 (>51); GLUCOSE, FASTING 98 MG/DL (70-105); POTASSIUM SERUM 5.1 MEQ/L (3.5-5.1); SODIUM LEVEL 134 MEQ/L (136-145)
--- NOTE | 2016-10-05 05:20 | REPUSA ---
CLINICAL HISTORY: Dyspnea, exclude PE. TECHNIQUE: Multiple incremental axial, coronal and oblique images are obtained from the thoracic inle t to the upper abdomen. Intravenous contrast material was administered as per pulmonary embolism prot ocol. COMMENTS: There is excellent opacification of pulmonary arterial system without evidence for pulmonary embolism . Aorta is of normal caliber without evidence for dissection or aneurysm. There is no evidence of pleural or parenchymal mass. There are moderate bilateral pleural effusions. Passive atelectatic airspace disease of the lower lobes. There is no evidence of hilar or mediastinal lymphadenopathy. The heart and great vessels are within normal limits. Images of the upper abdomen demonstrate no evidence of adrenal mass. The bony structures are free of lytic or blastic lesions. IMPRESSION: No evidence for pulmonary embolism. Bilateral pleural effusions. Passive atelectatic airspace disease of the lower lobes. Thank you for your kind referral of this patient.
[2016-10-05] MEDS ORDERED: methylPREDNISolone INJ 125 MG/2 ML VIAL (J2930) IV ONE (05:45)
[2016-10-05] MEDS ORDERED: TYLE650T35 PO (06:20)
[2016-10-05] MEDS ORDERED: AMLO10TA2 PO (06:20)
[2016-10-05] MEDS ORDERED: PROT1TAB2 PO (06:20)
[2016-10-05] MEDS ORDERED: LAMI25TA PO (06:23)
[2016-10-05] MEDS ORDERED: ADDE30CA PO (06:23)
[2016-10-05] MEDS ORDERED: KION15SU PO (06:23)
[2016-10-05] MEDS ORDERED: clonazePAM 1 MG TAB PO PRN (06:30)
[2016-10-05] MEDS ORDERED: ONDANSETRON 4 MG TAB (S0181) PO PRN (06:30)
[2016-10-05] MEDS ORDERED: ONDANSETRON 4MG/2ML VIAL (J2405) IV PRN (06:30)
[2016-10-05] MEDS ORDERED: MORPHINE 2 MG/ML 1ML SYRINGE IV PRN (06:30)
[2016-10-05] MEDS ORDERED: LOMOTIL 2.5MG/0.025MG TABLET PO PRN (06:30)
--- NOTE | 2016-10-05 06:49 | ECGEPIP ---
Stationary ECG Study [facility] - ED Test Date: 2016-10-05 Pat Name: GREY ORELLANA Department: Room: - Gender: F Diesel Mechanic Construction: aashish : 1960 Requested By: KELLY Avilez Order Number: [id number] Reading MD: Lay Franklin Measurements Intervals [place] Rate: 60 P: 64 SD: 159 QRS: 68 QRSD: 108 T: 50 QT: 444 QTc: 447 Interpretive Statements SINUS RHYTHM POSSIBLE LEFT ATRIAL ENLARGEMENT POSSIBLE LEFT VENTRICULAR HYPERTROPHY DELAYED R WAVE PROGRESSION IVCD NONSPECIFIC ST T WAVE CHANGES CW 09/14/16 RATE INCREASED Electronically Signed On 10-05-2016 6:49:02 EDT by Lay Franklin
--- NOTE | 2016-10-05 07:19 | HPEPDOC ---
Medical History and Physical Date of Admission October 05, 2016 at 06:22 History and Physical HISTORY AND PHYSICAL Date of admission: 10/05/2016 PCP: Brittni Polanco at [facility] Chief complaint: Chest pain with deep breaths HPI: 55-year-old female with hypertension, mitral valve prolapse, anxiety and depression, migraines, history of ischemic bowel status post ileostomy and G tube placement which have now been removed, GERD, hyperlipidemia, anemia of chronic disease, end-stage renal disease on hemodialysis Tuesdays, , Saturdays who presented to the emergency department because she had been experiencing chest pain whenever she took deep breaths intermittently for the past 10 days. She states that the pain is located in the center of her chest and is difficult to describe. She said that it is not sharp or dull but is otherwise unable to characterize it. She states that it mostly stays in the center of her chest but occasionally shoots up towards her throat, and she even for a while thought it might be indigestion. While this is intermittent in nature, she has been unable to identify anything that brings it on or that makes it go away; it seems to come and go on its own. She does note though that when she lays flat, she has increased chest pain and increased shortness of breath. She states that when she takes a deep breath is when the pain is the worst. She denies any recent illnesses or cold symptoms. She states that she came to the emergency department today because she thought that this chest pain and shortness of breath might indicate that she needed dialysis. Past medical history: hypertension, mitral valve prolapse, anxiety and depression, migraines, history of ischemic bowel status post ileostomy and G tube placement which have now been removed, GERD, hyperlipidemia, anemia of chronic disease, end-stage renal disease on hemodialysis Tuesdays, , Saturdays Past surgical history: Colectomy and ileostomy secondary to ischemic bowel which have now been taken down, history of GJ tube placement which has now been removed, dialysis access, appendectomy, D&C Family history: Cancer and kidney disease Social history: Patient states that she has never smoked. She does not drink any alcohol or use drugs. She currently lives with her and 2 daughters. Allergies: No known drug allergies Review of systems: General: Negative for fever and chills Eyes: Negative For vision changes and ocular discharge ENT: Negative for sore throat and nose bleeds Cardiovascular: Positive for chest pain and palpitations Respiratory: Negative for cough, positive for shortness of breath GI: Positive for nausea, negative for vomiting or constipation Musculoskeletal: Positive for chronic back pain Skin: Negative for rash Neuro: Positive for headache, negative for dizziness, numbness, tingling Psych: Positive for depression, negative for suicidal ideation : The patient states that she still makes a minimal amount of urine, but has not noticed any changes in her urination Heme: Positive for bruising, negative for bleeding Home meds: See below Physical exam: Vital signs: Vital Sign - Last 24 Hours 10/05/16 10/05/16 10/05/16 02:13 03:25 03:25 Temp 96.4 Pulse 60 Resp 18 B/P (MAP) 122/97 (105) Pulse Ox 97 O2 Delivery Room Air Room Air Gen.: awake, alert, no acute distress Eyes: Extraocular movements intact, normal sclera ENT: Moist mucous membranes Cardiovascular: RRR, pericardial rub Lungs: clear to auscultation bilaterally Abdomen: Soft, NT/ND, normal BS Musculoskeletal: normal range of motion Extremities: No peripheral edema Neuro: alert and oriented 3, normal speech, no focal deficits Psych: Normal mood with congruent affect Labs and radiology: See below BUN 56 CRP 7.33 CTA of the chest was negative for PE but does show bilateral pleural effusions Troponin is negative EKG shows some mild ST depression in V2 and V3 Assessment and plan: 55-year-old female with hypertension, mitral valve prolapse, anxiety and depression, migraines, history of ischemic bowel status post ileostomy and G tube placement which have now been removed, GERD, hyperlipidemia, anemia of chronic disease, end-stage renal disease on hemodialysis Tuesdays, , Saturdays who presented to the emergency department because she had been experiencing chest pain whenever she took deep breaths and is admitted with pericarditis. 1. Pericarditis: The patient describes pleuritic chest pain and has a quite obvious rub on exam. Her BUN is 56, which while this is not incredibly elevated , it is quite high for her. We will assess with an echo today, and we'll continue to trend troponins. She'll be monitored on telemetry and we will consult Dr. Oseguera cardiology. We will collect blood cultures. Given her kidney disease, we will start her on prednisone 20 mg by mouth daily, as well as a PPI. 2. Hypertension: Continue home Norvasc and propranolol. 3. Anxiety and depression: Continue home Wellbutrin and Klonopin and Zoloft. 4. End-stage renal disease on hemodialysis Tuesdays, , Saturdays: Consult Dr. Rodríguez for dialysis. DVT prophylaxis: SCDs Dispo: admit as an inpatient to the service of Dr. Feliz CODE STATUS: Full code Vital Signs Vital Signs Date Time Temp Pulse Resp B/P (MAP) Pulse Ox O2 Delivery O2 Flow Rate FiO2 10/05/16 03:25 10/05/16 03:25 Room Air 10/05/16 02:13 96.4 60 18 97 Laboratory Data Labs 24H Laboratory Tests 2 10/05/16 03:00: 10/05/16 03:01: White Blood Count 9.3, Red Blood Count 3.05L, Hemoglobin 10.5L, Hematocrit 32.9L , Mean Corpuscular Volume 107.9H, Mean Corpuscular Hemoglobin 34.3H, Mean Corpuscular Hemoglobin Concent 31.8L, Red Cell Distribution Width 14.1, Platelet Count 270, Neutrophils (%) (Auto) 81.9H, Lymphocytes (%) (Auto) 7.7L, Monocytes (%) (Auto) 6.8H, Eosinophils (%) (Auto) 1.8, Basophils (%) (Auto) 0.7 , Neutrophils # (Auto) 7.6, Lymphocytes # (Auto) 0.8L, Monocytes # (Auto) 0.6, Eosinophils # (Auto) 0.2, Basophils # (Auto) 0.1, Large Unclassified Cells % 1.1 , Large Unclassified Cells # 0.1, Erythrocyte Sedimentation Rate 67H, B-Type Natriuretic Peptide > 5000H 10/05/16 04:23: Anion Gap 12, Glomerular Filtration Rate 6.2L, Blood Urea Nitrogen 56H, Creatinine 7.27H, Sodium Level 134L, Potassium Level 5.1, Chloride Level 100, Carbon Dioxide Level 22, Calcium Level 8.9, Total Creatine Kinase 25L, Creatine Kinase MB 2.3, Creatine Kinase MB Relative Index 9.20H, Troponin I < 0.02, C- Reactive Protein, Quantitative 7.33H CBC/BMP Laboratory Tests 10/05/16 03:01 Red Blood Count 3.05 L, Mean Corpuscular Volume 107.9 H, Mean Corpuscular Hemoglobin 34.3 H, Mean Corpuscular Hemoglobin Concent 31.8 L, Red Cell Distribution Width 14.1, Neutrophils (%) (Auto) 81.9 H, Lymphocytes (%) (Auto) 7.7 L, Monocytes (%) (Auto) 6.8 H, Eosinophils (%) (Auto) 1.8, Basophils (%) ( Auto) 0.7, Neutrophils # (Auto) 7.6, Lymphocytes # (Auto) 0.8 L, Monocytes # ( Auto) 0.6, Eosinophils # (Auto) 0.2, Basophils # (Auto) 0.1 10/05/16 04:23 Calcium Level 8.9, Total Creatine Kinase 25 L Home Medications Scheduled Amlodipine Besylate (Amlodipine Besylate) 10 Mg Tab, 10 MG PO DAILY Amphetamine/Dextroamphetamine (Adderall Xr 30 mg) 1 Cap Cap, 1 CAP PO QAM Bupropion Hcl (Bupropion HCl Sr) 150 Mg Tab, 150 MG PO BID Cholecalciferol (Vitamin D-3) 2,000 Unit Tab, 2,000 UNIT PO BID Estradiol (Estradiol) 1 Mg Tab, 1 MG PO DAILY Lamotrigine (Lamictal) 25 Mg Tab, 25 MG PO BID Pantoprazole Sodium Sesquihydr (Protonix) 40 Mg Tab, 40 MG PO DAILY Propranolol HCl (Inderal LA) 120 Mg Capcr, 120 MG PO DAILY Sertraline HCl (Sertraline HCl) 100 Mg Tab, 200 MG PO DAILY Zolpidem Tartrate (Ambien) 10 Mg Tab, 20 MG PO QHS Scheduled PRN Acetaminophen (Tylenol 8 Hour Arthritis) 650 Mg Tab, 650 MG PO Q8H PRN for PAIN Clonazepam (Clonazepam) 1 Mg Tab, 1 MG PO QID PRN for ANXIETY Diphenoxylate/Atropine (Lomotil 2.5-0.025 mg) 1 Tab Tab, 1 TAB PO QID PRN for DIARRHEA Ondansetron HCl (Ondansetron HCl) 4 Mg Tab, 4 MG PO Q6H PRN for NAUSEA Promethazine HCl (Promethazine HCl) 25 Mg Tab, 25 MG PO Q6H PRN for NAUSEA Rizatriptan Benzoate (Rizatriptan Benzoate) 10 Mg Tab, 10 MG PO DAILY PRN for MIGRAINE Sodium Polystyrene Sulfonate (Kionex) 15 Gm/60 Ml Inessa, 15 GM PO DAILY PRN for HIGH POTASSIUM Allergies Coded Allergies: No Known Allergies (Unverified , 09/13/16) MARTHA ROSADO October 05, 2016 07:19
[2016-10-05] MEDS: buPROPion **SR TABLET** (ZYBAN) 150MG PO SCH ×2 (09:00→21:25)
[2016-10-05 09:33] LABS: URIC ACID 3.7 MG/DL (2.6-6.0)
[2016-10-05] MEDS: PANTOPRAZOLE 40MG TAB (PROTONIX) PO SCH (10:14)
[2016-10-05] MEDS: SERTRALINE 100 MG TAB PO SCH (10:14)
[2016-10-05] MEDS: lamoTRIgine 25 MG TAB PO SCH ×2 (10:15→21:25)
[2016-10-05] MEDS: predniSONE 20 MG TAB PO SCH (10:15)
--- NOTE | 2016-10-05 13:23 | CR ---
DATE OF CONSULTATION: 10/05/2016 REQUESTING PHYSICIAN: Dr. Mckinnon CONSULTING PHYSICIAN: Dr. Johnston REASON FOR CONSULTATION: Management of end-stage renal disease and hemodialysis. CHIEF COMPLAINT: Patient presented to the emergency room last night because of chest pain and shortness of breath. HISTORY OF PRESENT ILLNESS: Jessi Haider is a 55-year-old female with past medical history of end-stage renal disease on hemodialysis every Tuesday, , Tuesday. She has been know to nephrology service from outpatient hemodialysis and from previous multiple admissions in the past. 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 Rest of the comorbidities are mentioned below in the past medical history. She presented to the emergency room last night because of progressive shortness of breath and chest pain with deep inspirations. It has been going on for the last 10 days almost. Patient reported that chest pain is intermittent in nature. On initial examination and evaluation in the emergency room, she was found to have a very loud murmur, which was thought to be possible pericardial rub. Patient was started on steroids for possible pericarditis. Nephrology service was called for further management of end-stage renal disease and hemodialysis, and possibility of uremic pericarditis. Of note, patient also got CT angiogram this morning, which showed bilateral pleural effusions. Patient was seen by me today morning. Urgent hemodialysis was arranged. Patient is mildly symptomatic at this time. She is otherwise currently hemodynamically stable. PAST MEDICAL HISTORY: Past medical history of end-stage renal disease on hemodialysis every Tuesday, , Tuesday, hypertension, mitral valve collapse, history of anxiety and depression, migraine headaches, history of ischemic bowel. She had ileostomy and status post G-tube placed in the past, which have been reversed. History of gastroesophageal reflux disease (GERD), anemia secondary to end-stage renal disease. PAST SURGICAL HISTORY: Status post colectomy and ileostomy secondary to ischemic bowel, status post reversal of ileostomy, status post removal of gastric jejunostomy (G-J) tube, status post appendectomy and history of dilation and curettage in the past. ALLERGIES: NO KNOWN DRUG ALLERGIES. FAMILY HISTORY: No significant family history of inherited disease. SOCIAL HISTORY: Patient lives at home with family. She denies any alcohol abuse or illicit drug abuse. Patient is not a smoker. REVIEW OF SYSTEMS: CONSTITUTIONAL: Patient denies any fever, chills or weakness. EYES: She denies any double vision or blurry vision. ENT: She denies any dysphagia, odynophagia or ear discharge. CARDIOVASCULAR: Patient does report chest pains and palpitations, but chest pain is not positional. RESPIRATORY: Patient reports shortness of breath and pleuritic chest pain on deep breaths, but she denies any cough or phlegm. GASTROINTESTINAL (GI): Patient denies any pain in abdomen, constipation or diarrhea, but she does report mild nausea. MUSCULOSKELETAL: Patient reports chronic backache. SKIN: She denies any rashes or ulcers. CENTRAL NERVOUS SYSTEM (MEDIA LIBRARIAN): Patient denies any history of seizures or strokes. PSYCH: Patient reports history of depression and anxiety. GENITOURINARY: Patient reports history of end-stage renal disease. She is dialysis dependent. She denies any dysuria or hematuria. HEMATOLOGICAL/ONCOLOGICAL: Patient reports history of anemia secondary to end-stage renal disease. ENDOCRINE: She has history of secondary hyperparathyroidism. All other review of system is negative. PHYSICAL EXAMINATION: GENERAL: Patient is awake, alert, oriented times three, laying in bed, no apparent distress. VITAL SIGNS: Temperature is 98 degrees Fahrenheit, blood pressure is 130/67, pulse is 65, respiratory rate of 16, saturating 90% on nasal cannula at 3 liters. Weight on the bed scale is 54 kg. HEAD/NECK EXAM: Extraocular muscles intact. Pupils equally, round, reactive to light. Mucous membranes are moist. Neck is supple. There is no jugular venous distention (JVD). CARDIOVASCULAR: Patient has grade 5-6 systolic murmur, which radiates to axilla. RESPIRATORY: Decreased breath sounds at the bases. No rales or rhonchi. Decreased vocal resonance bilaterally at the bases, right worse than left. ABDOMEN: Is soft, old surgical scars, positive bowel sounds, nontender. No ascites. No organomegaly. EXTREMITIES: No clubbing or cyanosis. Pulses are 2+. CENTRAL NERVOUS SYSTEM: No focal neurological deficit. Power is 5/5 in all extremities. PSYCHIATRIC: Normal mood and affect. SKIN: No rashes or ulcers. LYMPH NODES: No significant cervical, axillary or inguinal lymphadenopathy. LABORATORY REVIEW: CBC showed a WBC of 9.3, hemoglobin is 10.5, platelets are 270. BMP showed sodium 134, potassium 5.1, chloride 100, bicarbonate 22, BUN is 56, creatinine is 7.2, troponin less than 0.02. C-reactive protein is 7.3, BNP was more than 5000. Lyme serology is pending. MICROBIOLOGY: Blood culture is pending. IMAGING: CT angio of the chest was done last night, which showed no evidence of pulmonary embolism. There were bilateral pleural effusions, which are moderate in intensity. There was passive atelectasis of the lower lobes. CURRENT INPATIENT MEDICATIONS: Patient's current medications include: - amlodipine 10 mg by mouth daily - bupropion 150 mg by mouth twice a day - Klonopin 1 mg by mouth four times a day as needed, anxiety - Lomotil as needed for diarrhea - Estrace 1 mg by mouth daily - Lamictal 25 mg by mouth twice a day - Solu-Medrol 25 mg IV times one dose was given - morphine 2 mg IV every 4 hours as needed, severe pain - Zofran as needed - Protonix 40 mg by mouth daily - prednisone 20 mg by mouth daily - Inderal 120 mg by mouth daily - Zoloft 200 mg by mouth daily - vitamin D 2000 units by mouth twice a day ASSESSMENT: 55-year-old female with past medical history of end-stage renal disease on hemodialysis, hypertension, history of mitral valve prolapse, admitted this time because of pleuritic chest pain, moderate bilateral pleural effusion and very loud heart murmur, which is suspicious for pericarditis. PLAN: 1. Pleuritic chest pain. Patient's pleuritic chest pain is most likely because of moderate size bilateral pleural effusions. However, given the history of large grade 5/6 murmur it is possible that she might have developed pericarditis. A 2D echocardiogram is pending. Patient was already given steroids by the primary team. I am going to do the dialysis without heparin today. If echocardiogram shows the evidence of pericarditis, then she would need [id number] hemodialysis for at least 5-7 days. Continue the pain management with morphine. 2. Bilateral pleural effusions. Patient is being dialyzed. We shall try to do ultrafiltration of about 3 liters, but probably that would not help improve the effusions. If patient's symptoms do not improve, then she would need evaluation by CT surgery for possible pleural tap or chest tube placement if needed. 3. End-stage renal disease on hemodialysis. Patient's regular dialysis days are Tuesday, , Tuesday. She is being dialyzed at this time according to her regular schedule. 4. Hypertension. Blood pressure is acceptable at this time. Continue current dose of amlodipine 10 mg by mouth daily and propranolol 120 mg by mouth daily. 5. History of anxiety and depression. Continue home dose of Zoloft, Klonopin and Wellbutrin. 6. Anemia in end-stage renal disease. Hemoglobin is 10.5 at this time. Patient will get a dose of Aranesp with hemodialysis next session. 7. Hyponatremia. It is most likely secondary to end-stage renal disease and mild volume overload. Hemodialysis and ultrafiltration would help improve hyponatremia. MTDD
[2016-10-05 13:58] VITALS: BP 119/59
[2016-10-05] MEDS: VITAMIN D 1,000 INTERNATIONAL UNITS TABLET PO SCH ×2 (15:24→21:25)
[2016-10-05] MEDS: PROPRANOLOL 60 MG LA CAP PO SCH (15:40)
[2016-10-05] MEDS: LOPERAMIDE 2 MG CAP PO PRN (15:40)
[2016-10-05] MEDS: amLODIPine 10 MG TAB PO SCH (15:40)
[2016-10-05] MEDS: ESTRADIOL 1 MG TAB PO SCH (15:41)
[2016-10-05 19:22] VITALS: BP 126/68
[2016-10-05] MEDS ORDERED: zolPIDEM TARTRATE 5 MG TAB PO PRN (21:30)
[2016-10-06 04:42] VITALS: BP 135/65
[2016-10-06 05:17] LABS: BASO % 0.1 % (0.0-1.0); EOS % 0.3 % (0.0-3.0); LARGE UNSTAINED CELL # 0.2 K/mm3 (0.0-0.4); LARGE UNSTAINED CELL % 2.7 % (0.0-4.0); LYMPH # 1.1 K/mm3 (1.5-4.5); LYMPH % 14.2 % (24.0-44.0); MEAN CORPUSCULAR HGB CONC 32.1 g/dl (32.0-36.5); MONO # 0.7 K/mm3 (0.0-0.8); MONO % 9.3 % (0.0-5.0); NEUTROPHILS # 5.8 K/mm3 (1.8-7.7); NEUTROPHILS % 73.3 % (36.0-66.0); PLATELET COUNT, AUTOMATED 226 k/mm3 (150-450); RED CELL DISTRIBUTION WIDTH 13.9 % (11.5-14.5); WHITE BLOOD COUNT 7.9 K/mm3 (4.0-10.0)
[2016-10-06 05:27] LABS: CALCIUM LEVEL 8.7 MG/DL (8.5-10.1); CREATININE FOR GFR 5.25 MG/DL (0.55-1.02); MAGNESIUM LEVEL 2.1 MG/DL (1.8-2.4); POTASSIUM SERUM 4.3 MEQ/L (3.5-5.1)
[2016-10-06 07:30] VITALS: BP 127/69
[2016-10-06] MEDS: ESTRADIOL 1 MG TAB PO SCH (08:12)
[2016-10-06] MEDS: PANTOPRAZOLE 40MG TAB (PROTONIX) PO SCH (08:12)
[2016-10-06] MEDS: lamoTRIgine 25 MG TAB PO SCH (08:12)
[2016-10-06] MEDS: buPROPion **SR TABLET** (ZYBAN) 150MG PO SCH (08:12)
[2016-10-06 08:13] VITALS: BP 127/69
[2016-10-06] MEDS: SERTRALINE 100 MG TAB PO SCH (08:13)
[2016-10-06] MEDS: PROPRANOLOL 60 MG LA CAP PO SCH (08:13)
[2016-10-06] MEDS: predniSONE 20 MG TAB PO SCH (08:13)
[2016-10-06] MEDS: VITAMIN D 1,000 INTERNATIONAL UNITS TABLET PO SCH (08:13)
[2016-10-06] MEDS: amLODIPine 10 MG TAB PO SCH (08:14)
[2016-10-06] MEDS ORDERED: DARBEPOETIN 300 MCG/0.6 ML *NON-DIALYSIS* SYRINGE (J0881) SC SCH (09:00)
--- NOTE | 2016-10-06 11:44 | REP ---
Chest x-ray: Two views. History: Shortness of breath and pleural effusions. Comparison study September 14, 2016. Findings: A left internal jugular tunneled central venous catheter is seen with a tip in the expected location of the right atrium SVC junction. The lungs are symmetrically aerated. No infiltrate is seen. There is blunting of the pleural angles bilaterally consistent with small bilateral pleural effusions. These are somewhat improved from the prior study. The vascular congestion and interstitial markings are improved as well from the prior exam. No acute infiltrate is seen. Impression: Small bilateral effusions improved from the prior study. Signed by Reji Narvaez MD 10/06/2016 12:55 P
--- NOTE | 2016-10-06 12:05 | IPNPDOC ---
Subjective Date Seen The patient was seen on 10/06/16. Subjective Chief Complaint/HPI The patient is a 55-year-old female admitted with a reason for visit of Pericarditis. General: Denies: Chills, Night Sweats Constitutional: Denies: Chills, Fever Eyes: Denies: Pain, Vision change ENT: Denies: Head Aches, Ear Pain Skin: Denies: Rash, Lesions Pulmonary: Denies: Dyspnea, Cough Cardiovascular: Denies: Chest Pain, Palpitations Gastrointestinal: Denies: Nausea, Vomiting Genitourinary: Denies: Dysuria, Frequency Hematologic: Denies: Bruising, Bleeding Excessively Objective Physical Examination General Exam: Positive: Alert, Cooperative, No Acute Distress ENT Exam: Positive: Atraumatic, Mucous membr. moist/pink Neck Exam: Negative: JVD Chest Exam: Positive: Diminished, Negative: Rhonchi, Wheezing Heart Exam: Positive: Rate Normal, Normal S1, Normal S2 Telemetry: Positive: Sinus Abdomen Exam: Positive: Soft, Negative: Tenderness Extremity Exam: Negative: Tenderness, Swelling Psych Exam: Positive: Oriented x 3 Assessment /Plan Plan/VTE VTE Prophylaxis Ordered?: Yes Plan SOB 2/2 Bilateral Pleural Effusions CTA Chest on Admission notable for Pleural Effusions s/p Dialysis yesterday with the removal of 3L of Fluid Patient currently breathing 94-99% on Room Air, Ambulating and notes a significant improvement of her respiratory status Repeat CXR ordered today to f/u on B/L Effusions Will continue to monitor the patient's respiratory/volume status Pleuritic Chest Pain likely 2/2 Underlying Pleural Effusions EKG with no acute ST Changes, Troponins negative x 4 The patient's chest pain has resolved at this time There was a concern about possible pericarditis on admission, and the patient was started on prednisone 2D ECHO pending to r/o out other possible etiologies We will continue to monitor the patient End-stage renal disease on hemodialysis Tuesdays, , Saturdays Dr. Johnston of Nephro on board Hypertension Continue Norvasc and propranolol. Anxiety and depression Continue Wellbutrin, Klonopin and Zoloft. DVT prophylaxis: SCDs Dispo: We will continue to fluid optimize the patient, follow up on ECHO results , and monitor the patient's progress moving forward. Anticipate D/C in 24-48hrs pending clinical improvement. VS, I&O, 24H, Camilo Vital Signs/I&O Vital Signs Date Time Temp Pulse Resp B/P (MAP) Pulse Ox O2 Delivery O2 Flow Rate FiO2 10/06/16 08:13 67 127/69 10/06/16 08:00 Room Air 10/06/16 07:30 99.0 20 92 10/05/16 09:27 3.0 I&O- Last 24 Hours up to 6 AM 10/06/16 06:00 Intake Total 420 ml Output Total 3000 ml Balance -2580 ml Laboratory Data 24H LABS Laboratory Tests 2 10/05/16 14:37: Total Creatine Kinase 24L, Creatine Kinase MB 2.2, Creatine Kinase MB Relative Index 9.16H, Troponin I < 0.02 10/05/16 22:05: Total Creatine Kinase 19L, Creatine Kinase MB 1.5, Creatine Kinase MB Relative Index 7.89H, Troponin I < 0.02 10/06/16 04:45: White Blood Count 7.9, Red Blood Count 2.53L, Hemoglobin 8.9L, Hematocrit 27.6L , Mean Corpuscular Volume 109.0H, Mean Corpuscular Hemoglobin 35.0H, Mean Corpuscular Hemoglobin Concent 32.1, Red Cell Distribution Width 13.9, Platelet Count 226, Neutrophils (%) (Auto) 73.3H, Lymphocytes (%) (Auto) 14.2L, Monocytes (%) (Auto) 9.3H, Eosinophils (%) (Auto) 0.3, Basophils (%) (Auto) 0.1 , Neutrophils # (Auto) 5.8, Lymphocytes # (Auto) 1.1L, Monocytes # (Auto) 0.7, Eosinophils # (Auto) 0.0, Basophils # (Auto) 0.0, Large Unclassified Cells % 2.7 , Large Unclassified Cells # 0.2, Anion Gap 10, Glomerular Filtration Rate 9.0L , Blood Urea Nitrogen 37H, Creatinine 5.25H, Sodium Level 138, Potassium Level 4.3, Chloride Level 104, Carbon Dioxide Level 24, Calcium Level 8.7, Magnesium Level 2.1, Iron Level 51, Total Iron Binding Capacity 176L, Transferrin % Saturation 29.0, Ferritin 685H, C-Reactive Protein, Quantitative 11.80H CBC/BMP Laboratory Tests 5/17/17 04:45 Red Blood Count 2.53 L, Mean Corpuscular Volume 109.0 H, Mean Corpuscular Hemoglobin 35.0 H, Mean Corpuscular Hemoglobin Concent 32.1, Red Cell Distribution Width 13.9, Neutrophils (%) (Auto) 73.3 H, Lymphocytes (%) (Auto) 14.2 L, Monocytes (%) (Auto) 9.3 H, Eosinophils (%) (Auto) 0.3, Basophils (%) ( Auto) 0.1, Neutrophils # (Auto) 5.8, Lymphocytes # (Auto) 1.1 L, Monocytes # ( Auto) 0.7, Eosinophils # (Auto) 0.0, Basophils # (Auto) 0.0, Calcium Level 8.7 Microbiology Microbiology 10/05/16 Blood Culture - Preliminary, Resulted No growth after 24 hours . All specim... CORRY DSOUZA MD October 06, 2016 12:05
--- NOTE | 2016-10-06 14:16 | ECHO ---
DATE OF STUDY: 10/05/2016 REFERRING PHYSICIAN: Dr. Feliz and Dr. Zhu INDICATION: Chest pain. The patient measures 168 cm, weighs 54 kg. DIMENSIONS: IVS 1.0 LV 4.6 LVPW 1.0 LA 3.9 Aorta 2.6 The study is of good technical quality. Left ventricle is normal size and systolic function. I estimate EF around 65-70%. Right ventricle does not appear grossly enlarged. Left atrium is severely enlarged. Right atrium is probably normal size. Aortic valve is heavily calcified and there is definite restriction of cusp mobility. By two-dimensional imaging, I estimate at least moderate and probably severe aortic stenosis. There are heavy degenerative abnormalities of mitral valve with very prominent mitral annular calcifications and thickening of mitral leaflets. On some views there is a suspicion that there might be an echodensity attached to base of anterior mitral leaflet on its atrial side raising some suspicion for vegetation, but I suspect that this most likely represents an artifact. Tricuspid valve appears normal. Pulmonic valve also appears normal. Trace pericardial effusion without any signs of cardiac compression is noted. Inferior vena cava is normal size. Aortic root appears normal. Aortic arch also appears normal. Abdominal aorta also appears grossly normal. Doppler interrogation of aortic valve reveals trace to mild insufficiency and probably severe stenosis. Peak gradient across the valve is 81 and mean gradient 47 mmHg. Calculated aortic valve area was only 0.4 which is certainly inaccurate due to poor measurement of LVOT diameter. Mitral valve exhibits severe insufficiency with central MR jet. There is mild tricuspid and mild pulmonic insufficiency. Calculated pulmonary artery pressure is in low 40s corresponding to moderate pulmonary hypertension. Mitral inflow pattern and tissue Doppler imaging of mitral annulus reveal grade 2 diastolic dysfunction (E prime velocity septal is 5.9 and lateral 7.4 cm/sec). CONCLUSIONS: 1. The study is of good technical quality. 2. Normal LV size with hyperdynamic LV systolic function and grade 2 diastolic dysfunction. 3. Calcific aortic valve with severe stenosis (mean gradient 47 mmHg). 4. Heavy degenerative abnormalities of mitral valve with severe mitral insufficiency. Cannot completely rule out the presence of vegetation, but I consider it unlikely. 5. Mild mitral and pulmonic insufficiency. 6. Likely normal central venous pressure. 7. Moderate pulmonary hypertension. 8. Left pleural effusion. COMMENT: SBE prophylaxis is not recommended. If clinically indicated patient should certainly be evaluated for aortic and mitral valve replacement. MTDD
[2016-10-06] MEDS: LOPERAMIDE 2 MG CAP PO PRN (14:19)
--- NOTE | 2016-10-06 14:37 | DS.PDOC ---
Discharge Summary General Date of Admission October 05, 2016 at 06:22 Date of Discharge 10/06/16 Specialist/Consultants Involve: CULLEN GARBER MD Discharge Summary PROCEDURES PERFORMED DURING STAY: None. ADMITTING DIAGNOSES: 1. . Shortness of breath secondary bilateral pleural effusions 2. . End-stage renal disease on hemodialysis 3. . History of mitral valve prolapse DISCHARGE DIAGNOSES: 1. . Shortness of breath secondary bilateral pleural effusions 2. . End-stage renal disease on hemodialysis 3. . History of mitral valve prolapse COMPLICATIONS/CHIEF COMPLAINT: Pericarditis. HISTORY OF PRESENT ILLNESS: . 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 The patient states that she had been adherent with her dialysis sessions. However, she does note that she had been having an increased amount of salty intake which includes frozen foods and canned foods. The patient states that her shortness of breath worsened when laying flat. In addition, she also noted lower extremity swelling. In addition, the patient also complained of chest pain when taking deep breaths. The patient denied any chest pain on exertion, or any positional changes. In the ER, a CTA of the chest revealed bilateral pleural effusions. Initial troponin levels were within normal limits, and an EKG was found to have no acute ST changes. The patient was admitted to the hospital service for further evaluation and management During hospitalization, the patient did undergo dialysis with removal of 3 L of fluid. After her dialysis session the patient states that her shortness of breath had significantly improved. She no longer complained of any pleuritic chest pain. There was a concern for possible underlying pericarditis given the patient's presenting symptoms, however given the resolution of symptoms after dialysis and the lack of evidence of EKG changes this is less likely. However the patient was treated with some steroids on admission. A 2-D echocardiogram was also ordered and the preliminary results reviewed with Dr. Oseguera revealed mitral regurgitation and some aortic stenosis. The patient does follow with Dr. Brown of Cardiology as an outpatient and has a scheduled appointment in the next 1 -2 weeks according to the patient. I have advised for her to follow-up with him regarding further delineation of care. At this time, the patient states that she 's feeling well and is eager to return home. I advised her to follow-up with her primary care provider in the next 1 week. In addition, the patient was advised to return to the ER if her symptoms return or worsen. . DISCHARGE MEDICATIONS: Please see below. ALLERGIES: Please see below. PHYSICAL EXAMINATION ON DISCHARGE: VITAL SIGNS: Please see below. General Exam: Positive: Alert, Cooperative, No Acute Distress ENT Exam: Positive: Atraumatic, Mucous membr. moist/pink Neck Exam: Negative: JVD Chest Exam: Positive: Diminished, Negative: Rhonchi, Wheezing Heart Exam: Positive: Rate Normal, Normal S1, Normal S2 Telemetry: Positive: Sinus Abdomen Exam: Positive: Soft, Negative: Tenderness Extremity Exam: Negative: Tenderness, Swelling Psych Exam: Positive: Oriented x 3 LABORATORY DATA: Please see below. IMAGING: CLINICAL HISTORY: Dyspnea, exclude PE. TECHNIQUE: Multiple incremental axial, coronal and oblique images are obtained from the thoracic inlet to the upper abdomen. Intravenous contrast material was administered as per pulmonary embolism protocol. COMMENTS: There is excellent opacification of pulmonary arterial system without evidence for pulmonary embolism. Aorta is of normal caliber without evidence for dissection or aneurysm. There is no evidence of pleural or parenchymal mass. There are moderate bilateral pleural effusions. Passive atelectatic airspace disease of the lower lobes. There is no evidence of hilar or mediastinal lymphadenopathy. The heart and great vessels are within normal limits. Images of the upper abdomen demonstrate no evidence of adrenal mass. The bony structures are free of lytic or blastic lesions. IMPRESSION: No evidence for pulmonary embolism. Bilateral pleural effusions. Passive atelectatic airspace disease of the lower lobes. PROGNOSIS: Medically Stable at this time ACTIVITY: As tolerated. DIET: . 2 gm Low Sodium diet DISCHARGE PLAN: DISPOSITION: .Home ITEMS TO FOLLOWUP ON ON OUTPATIENT: 1. . Follow-up with primary care physician within one week 2. . Follow-up with Dr. Brown of cardiology for review of echocardiogram results within 1-2 weeks 3. . Return to ER if symptoms persist or worsen DISCHARGE CONDITION: Stable. TIME SPENT ON DISCHARGE: Greater than 30 minutes. Vital Signs/I&Os Vital Signs Date Time Temp Pulse Resp B/P (MAP) Pulse Ox O2 Delivery O2 Flow Rate FiO2 10/06/16 08:13 67 127/69 10/06/16 08:00 Room Air 10/06/16 07:30 99.0 20 92 10/05/16 09:27 3.0 I&O- Last 24 Hours up to 6 AM 10/06/16 06:00 Intake Total 420 ml Output Total 3000 ml Balance -2580 ml Laboratory Data Labs 24H Laboratory Tests 2 10/05/16 14:37: Total Creatine Kinase 24L, Creatine Kinase MB 2.2, Creatine Kinase MB Relative Index 9.16H, Troponin I < 0.02 10/05/16 22:05: Total Creatine Kinase 19L, Creatine Kinase MB 1.5, Creatine Kinase MB Relative Index 7.89H, Troponin I < 0.02 10/06/16 04:45: White Blood Count 7.9, Red Blood Count 2.53L, Hemoglobin 8.9L, Hematocrit 27.6L , Mean Corpuscular Volume 109.0H, Mean Corpuscular Hemoglobin 35.0H, Mean Corpuscular Hemoglobin Concent 32.1, Red Cell Distribution Width 13.9, Platelet Count 226, Neutrophils (%) (Auto) 73.3H, Lymphocytes (%) (Auto) 14.2L, Monocytes (%) (Auto) 9.3H, Eosinophils (%) (Auto) 0.3, Basophils (%) (Auto) 0.1 , Neutrophils # (Auto) 5.8, Lymphocytes # (Auto) 1.1L, Monocytes # (Auto) 0.7, Eosinophils # (Auto) 0.0, Basophils # (Auto) 0.0, Large Unclassified Cells % 2.7 , Large Unclassified Cells # 0.2, Anion Gap 10, Glomerular Filtration Rate 9.0L , Blood Urea Nitrogen 37H, Creatinine 5.25H, Sodium Level 138, Potassium Level 4.3, Chloride Level 104, Carbon Dioxide Level 24, Calcium Level 8.7, Magnesium Level 2.1, Iron Level 51, Total Iron Binding Capacity 176L, Transferrin % Saturation 29.0, Ferritin 685H, C-Reactive Protein, Quantitative 11.80H CBC/BMP Laboratory Tests 10/06/16 04:45 Red Blood Count 2.53 L, Mean Corpuscular Volume 109.0 H, Mean Corpuscular Hemoglobin 35.0 H, Mean Corpuscular Hemoglobin Concent 32.1, Red Cell Distribution Width 13.9, Neutrophils (%) (Auto) 73.3 H, Lymphocytes (%) (Auto) 14.2 L, Monocytes (%) (Auto) 9.3 H, Eosinophils (%) (Auto) 0.3, Basophils (%) ( Auto) 0.1, Neutrophils # (Auto) 5.8, Lymphocytes # (Auto) 1.1 L, Monocytes # ( Auto) 0.7, Eosinophils # (Auto) 0.0, Basophils # (Auto) 0.0, Calcium Level 8.7 Microbiology Microbiology 10/05/16 Blood Culture - Preliminary, Resulted No growth after 24 hours . All specim... Discharge Medications Scheduled Amlodipine Besylate (Amlodipine Besylate) 10 Mg Tab, 10 MG PO DAILY, (Reported) Amphetamine/Dextroamphetamine (Adderall Xr 30 mg) 1 Cap Cap, 1 CAP PO QAM, ( Reported) Bupropion Hcl (Bupropion HCl Sr) 150 Mg Tab, 150 MG PO BID, (Reported) Cholecalciferol (Vitamin D-3) 2,000 Unit Tab, 2,000 UNIT PO BID, (Reported) Estradiol (Estradiol) 1 Mg Tab, 1 MG PO DAILY, (Reported) Lamotrigine (Lamictal) 25 Mg Tab, 25 MG PO BID, (Reported) Pantoprazole Sodium Sesquihydr (Protonix) 40 Mg Tab, 40 MG PO DAILY, (Reported) Propranolol HCl (Inderal LA) 120 Mg Capcr, 120 MG PO DAILY, (Reported) Sertraline HCl (Sertraline HCl) 100 Mg Tab, 200 MG PO DAILY, (Reported) Zolpidem Tartrate (Ambien) 10 Mg Tab, 20 MG PO QHS, (Reported) Scheduled PRN Acetaminophen (Tylenol 8 Hour Arthritis) 650 Mg Tab, 650 MG PO Q8H PRN for PAIN, (Reported) Clonazepam (Clonazepam) 1 Mg Tab, 1 MG PO QID PRN for ANXIETY, (Reported) Diphenoxylate/Atropine (Lomotil 2.5-0.025 mg) 1 Tab Tab, 1 TAB PO QID PRN for DIARRHEA, (Reported) Ondansetron HCl (Ondansetron HCl) 4 Mg Tab, 4 MG PO Q6H PRN for NAUSEA, ( Reported) Promethazine HCl (Promethazine HCl) 25 Mg Tab, 25 MG PO Q6H PRN for NAUSEA, ( Reported) Rizatriptan Benzoate (Rizatriptan Benzoate) 10 Mg Tab, 10 MG PO DAILY PRN for MIGRAINE, (Reported) Sodium Polystyrene Sulfonate (Kionex) 15 Gm/60 Ml Inessa, 15 GM PO DAILY PRN for HIGH POTASSIUM, (Reported) Allergies Coded Allergies: No Known Allergies (Unverified , 09/13/16) CORRY DSOUZA MD October 06, 2016 14:36
--- NOTE | 2016-10-06 15:10 | IPN ---
DATE: 10/06/2016 SUBJECTIVE: The patient was seen and examined at the bedside today in the morning. She reports much improvement in her shortness of breath and her chest pain. She was dialyzed yesterday. She tolerated the ultrafiltration well. She got the echocardiogram done as well, but official report is still pending. REVIEW OF SYSTEMS: The patient denies any fever, chills, rigors, headache, nausea, vomiting, or chest pain. She reports shortness of breath is significantly better. She denies any pain in the abdomen, constipation or diarrhea. The rest of review of systems is negative. OBJECTIVE: VITAL SIGNS: Temperature is 99 degrees Fahrenheit, blood pressure is 127/69, pulse is 67, respiratory rate of 20, saturating 92% on room air. INTAKE AND OUTPUT: Urine output is not recorded. Ultrafiltration with hemodialysis was 3 liters. Weight on the bed scale is 54.5 kg. PHYSICAL EXAMINATION: GENERAL: The patient is awake, alert, oriented times three, sitting in bed, in no apparent distress. HEAD AND NECK EXAMINATION: Extraocular muscles intact. Pupils equally round and reactive to light. Mucous membranes are moist. Neck is supple. There is no jugular venous distention (JVD). CARDIOVASCULAR: S1, S2. The patient has a loud, grade 5/6 systolic murmur. RESPIRATORY: Chest is clear to auscultation bilaterally. Bilateral equal air entry. No rales or rhonchi. ABDOMEN: Is soft, nontender. Positive bowel sounds. Old surgical scars. No organomegaly at this time. EXTREMITIES: No clubbing or cyanosis. Pulses are 2+. CENTRAL NERVOUS SYSTEM (GOVERNMENT PROGRAM MANAGER): No focal neurological deficit. Power is 5/5 in all extremities. PSYCHIATRIC: Normal mood and affect. SKIN: No rashes or ulcers. LABORATORY REVIEW: CBC showed a WBC 7.9, hemoglobin 8.9, platelets are 226. BMP showed sodium 138, potassium 4.3, chloride 104, bicarbonate 24, BUN 37, creatinine is 5.2. Iron is 51, TIBC is 176, transferrin saturation is 29, ferritin is 685. Troponin is negative. C-reactive protein is 11.8. Microbiology: Blood culture is negative after 24 hours. Imaging: Repeat chest x-ray done today this morning showed small bilateral effusions, which are improved from the prior study yesterday, vascular congestion and interstitial markings have all improved. Echocardiogram, the official result is still pending. CURRENT MEDICATIONS: The patient's current medications were all reviewed by me. She continues to be on prednisone 20 mg by mouth daily for possible pericarditis. ASSESSMENT: A 55-year-old female with past medical history of end-stage renal disease, on hemodialysis, hypertension, history of mitral valve prolapse, admitted this time because of pleuritic chest pain, shortness of breath and moderate bilateral pleural effusions. She has a very loud heart murmur and we are trying to rule out the possibility of pericarditis. PLAN: 1. Pleuritic chest pain and shortness of breath. The patient was dialyzed yesterday and treated, ultrafiltration was done. Shortness of breath is significantly better. Chest x-ray shows clearing of congestion and effusions. 2. Loud heart murmur. Rule out pericarditis. The patient got an echocardiogram done yesterday. Official report is pending. If echocardiogram shows possibility of pericarditis and pericardial fluid, then she will need daily dialysis. I have already called cardiology and have requested a preliminary report on the echocardiogram. 3. End stage renal disease on hemodialysis. The patient was dialyzed yesterday according to her regular schedule. There is no urgent need to do hemodialysis today unless she is found to have pericarditis on the echocardiogram. 4. Hypertension. Blood pressure is acceptable at this time. Continue current dose of amlodipine and propranolol. 5. Anemia and end stage renal disease. The patient's hemoglobin has dropped to 8.9. I have started the patient on Aranesp along with hemodialysis. 6. History of anxiety and depression. Continue current dose of Zoloft, Klonopin and Wellbutrin.
[2016-10-07 00:06] LABS: Lyme Disease IgG/IgM Antibodie <0.91 ISR (0.00-0.90); Lyme Disease IgM Ab Quantitati <0.80 index (0.00-0.79)
== END 2016-10-06 16:00 | disposition home or self-care (01) ==
LOC: M ED 03:36 → M ED INP 06:22 → INTOOBSV 06:22 → M PCU 13:58
PROVIDERS: ADMIT Hospitalist; ATTEND Internal Medicine
DX: J90 Pleural effusion, not elsewhere classified (principal); R06.02 Shortness of breath; I32 Pericarditis in diseases classified elsewhere; N18.6 End stage renal disease; Z79.899 Other long term (current) drug therapy; I34.8 Other nonrheumatic mitral valve disorders; I12.9 Hypertensive chronic kidney disease with stage 1 through stage 4 chronic kidney disease, or unspecified chronic kidney disease; F32.9 Major depressive disorder, single episode, unspecified; F41.9 Anxiety disorder, unspecified; K21.9 Gastro-esophageal reflux disease without esophagitis; E78.4 Other hyperlipidemia; D63.1 Anemia in chronic kidney disease
CPT/HCPCS: 36415; 71020; 71275; 80048; 82550; 82553; 82728; 83550; 83735; 83880; 84550; 85025; 85652; 86140; 86617; 87040; 93005; 93041; 94760; 96372; 96374; 99285; J0881; J2930; Q9967

== ENCOUNTER → 2016-12-13 | Outpatient (CLI) | payer BC, MEDICARE ==
[~2016-12-13] MED LIST changes: -ACET-654 PO; +ACET-683 PO; +ACET1TAB17 PO; -ACET500T37 PO; +ADDE30CA3 PO; +AMLO10TA2 PO; +HYDR-3363 PO; -HYDR25T PO; +LAMI25TA PO; -METO-207 PEG; -METO-207 PO; +METO1TAB7 PEG; +METO1TAB7 PO; -ONDA1TAB15 PO; +ONDA4TAB5 PO; +PERC5TAB12 PO; -PERC5TAB6 PO; -PROM50TA2 PEG; +PROM50TA4 PEG; +TYLE650T35 PO
--- NOTE | 2016-12-14 05:37 | REP ---
Clinical: Bilateral upper extremity pain with history of dialysis graft. Technique: Luque scale and color Doppler evaluation using linear high frequency transducer. Findings: Ultrasound examination of the bilateral upper extremity deep venous structures including the jugular, subclavian, brachial, basilic, and cephalic veins demonstrates small focus of nonocclusive thrombus in the proximal left subclavian vein. Remainder of the examination is normal bilaterally. Impression: Nonocclusive thrombus in the proximal left subclavian vein. Remainder examination appears normal bilaterally. Signed by Eliezer Whittaker MD 12/14/2016 05:29 A
== END ==
LOC: M RAD 11:35
PROVIDERS: ATTEND Surgery Vascular Surgery
DX: N18.6 End stage renal disease (principal)

== ENCOUNTER 2016-12-21 10:29 | Emergency (ER) | payer BC, MEDICARE ==
[~2016-12-21] VITALS: Ht 167.6 cm; Wt 64.7 kg
[2016-12-21] MEDS ORDERED: EPINEPHrine 1MG/10ML SYRINGE 1.5IN ONE (10:30)
[2016-12-21] MEDS ORDERED: SODIUM BICARBONATE 8.4% INJ 50 ML SYRINGE ONE (10:30)
[2016-12-21] MEDS ORDERED: CALCIUM CHLORIDE 10% 1 GM/10 ML SYR ONE (10:30)
== END 2016-12-21 13:09 | disposition expired ==
LOC: EDBD 10:29 → M ED 10:29
DX: I46.9 Cardiac arrest, cause unspecified (principal); I10 Essential (primary) hypertension; N18.6 End stage renal disease; Z99.2 Dependence on renal dialysis; Z87.19 Personal history of other diseases of the digestive system; I34.1 Nonrheumatic mitral (valve) prolapse; Z79.899 Other long term (current) drug therapy

== ENCOUNTER → 2016-12-21 | Outpatient (REF) | LOC: M LAB 12:02 ==